=== PATIENT | female | born 1950 | race Caucasian/White ===

== ENCOUNTER → 2016-03-12 | Outpatient (CLI) | payer BC, OTHER ==
[~2016-03-12] MED LIST: ATOR-54 PO; CALC-20 PO; CALC0.5C17 PO; CALC500C73 PO; CEPH500T PO; CHOL1TAB76 PO; CHOL400T PO; CIPR-255 PO; CITA20TA9 PO; DILT180C96 PO; DILT360C8 PO; DIPH1TAB PO; DIPH25CA37 PO; FEXO1TAB49 PO; GABA1CAP PO; GARL1TAB8 PO; HYDR-4852 PO; LORA-741 PO; LORA0.5T12 PO; LORA10TA5 PO; LOSA100T65 PO; LOSA50TA54 PO; LPT/40 PO; LUBRIFRESH OPR; MELA1TAB3 PO; MELA1TAB5 PO; METF500T5 PO; METR-162 PO; MULTCAP94 PO; OMEP20TA PO; OMEP40CA41 PO; OXYC1CAP5 PO; OXYC1TAB3 PO; OYST500T47 PO; PRED20TA2 PO; RANI150T3 PO; TRAZ50TA35 PO; tylenol sinus PO
--- NOTE | 2016-03-13 12:41 | MAMMOGRAPHY REPORT ---
BILATERAL DIGITAL SCREENING MAMMOGRAM TOMOSYNTHESIS WITH CAD: 03/12/2016 CLINICAL HISTORY: Asymptomatic. Personal history of breast cancer. TECHNIQUE: Breast tomosynthesis in addition to standard 2D mammography was performed. Current study was also evaluated with a Computer Aided Detection (CAD) system. COMPARISON: Comparison is made to exams dated: 03/09/2015 mammogram, 03/06/2013 mammogram, 03/08/2014 sada mogram, 06/13/2012 mammogram, 03/05/2012 mammogram, and 07/18/2011 mammogram - [facility]. BREAST COMPOSITION: The tissue of both breasts is heterogeneously dense, which may obscure small ma sses. FINDINGS: There is diffuse right breast skin thickening, which appears similar on all available prio r mammograms dating back to at least 2007. Expected architectural distortion in the right upper out er posterior breast, with sutural calcification and multiple surgical clips remaining in place. Asy mmetry in the superior left breast on the MLO view also appears similar dating back to 2007, therefo re likely benign. No new suspicious mass, architectural distortion or cluster of microcalcification s is seen. IMPRESSION: ACR BI-RADS CATEGORY 1: NEGATIVE There is no mammographic evidence of malignancy. A 1 year screening mammogram is recommended. The p atient will receive written notification of the results. Approximately 10% of breast cancers are not detected with mammography. A negative mammographic repor t should not delay biopsy if a clinically suggestive mass is present. Lida Serrano M.D. ay/:03/12/2016 21:28:16 [employer]: Michelle Grace RT(R)(M), [facility] letter sent: Normal 1/2 BI-RADS Code: ACR BI-RADS Category 1: Negative
== END | disposition home or self-care (01) ==
LOC: C.MAMM 14:00
PROVIDERS: ATTEND Obstetrics & Gynecology
DX: Z12.31 Encounter for screening mammogram for malignant neoplasm of breast (principal)

== ENCOUNTER → 2016-03-30 | Outpatient (CLI) | payer BC ==
[2016-03-30 13:12] LABS: ESTIMATED AVERAGE GLUCOSE 151 mg/dl; HA1C FLAG Normal (Normal)
== END | disposition home or self-care (01) ==
LOC: C.LABBFT 09:49
PROVIDERS: ATTEND Internal Medicine
DX: E11.9 Type 2 diabetes mellitus without complications (principal)

== ENCOUNTER → 2016-05-07 | Outpatient (CLI) | payer BC | END | disposition home or self-care (01) | LOC: C.MAMM 13:55 | PROVIDERS: ATTEND Internal Medicine | DX: M85.89 Other specified disorders of bone density and structure, multiple sites (principal) ==

== ENCOUNTER 2016-05-25 10:25 | Emergency (ER) | payer BC ==
[~2016-05-25] VITALS: Ht 157.5 cm; Wt 61.6 kg
[~2016-05-25 10:25] MED LIST changes: -CALC500C73 PO; -CHOL1TAB76 PO; -CHOL400T PO; -CIPR-255 PO; -DILT180C96 PO; -DILT360C8 PO; -DIPH1TAB PO; -FEXO1TAB49 PO; -GARL1TAB8 PO; -LORA-741 PO; -LOSA100T65 PO; -LPT/40 PO; -MELA1TAB5 PO; -METF500T5 PO; -METR-162 PO; -OMEP40CA41 PO; -OXYC1CAP5 PO; -OXYC1TAB3 PO; -OYST500T47 PO; -PRED20TA2 PO; -RANI150T3 PO; -TRAZ50TA35 PO
[2016-05-25 10:32] VITALS: TEMP 36.5; Ht 157.5 cm; Wt 61.6 kg
[2016-05-25 10:48] VITALS: O2SAT 96
[2016-05-25] MEDS ORDERED: FEXO1TAB49 PO (11:11)
[2016-05-25] MEDS ORDERED: DILT360C8 PO (11:11)
[2016-05-25] MEDS ORDERED: GARL1TAB8 PO (11:11)
[2016-05-25] MEDS ORDERED: DIPH1TAB PO (11:14)
[2016-05-25] MEDS ORDERED: CHOL400T PO (11:16)
[2016-05-25] MEDS ORDERED: LORA-741 PO (11:16)
[2016-05-25] MEDS ORDERED: OYST500T47 PO (11:16)
[2016-05-25] MEDS ORDERED: DILT180C96 PO (11:19)
[2016-05-25] MEDS ORDERED: RANITIDINE HCL 150 MG TAB PO STA (11:41)
[2016-05-25] MEDS ORDERED: RANI150T3 PO (11:45)
[2016-05-25] MEDS ORDERED: PRED20TA2 PO (11:45)
[2016-05-25 12:02] VITALS: BP 174/94; PULSE 62; O2SAT 97
--- NOTE | 2016-05-25 12:20 | EMERGENCY ROOM VISIT NOTE ---
History Report prepared by Dimitrios: Val Velazquez Under the Supervision of: Dr. Jese Corley M.D. First contact with patient: 11:34 Chief Complaint: ALLERGIC REACTION Stated Complaint: PEANUT BUTTER REACTION, HEADACHE, CLOGGED THROAT Nursing Triage Summary: patient presents with c/o allergic reaction states her head is "clogged up" and she has a headache states she was exposed to peanut butter bagels as her son was eating them in the car on their drive here has previously had allergic reaction to peanut butter in the past including hives, facial and hand edena History of Present Illness The patient is a 65 year old female who presents to the Emergency Room with complaints of improving allergic reaction starting a few minutes ago. The patient was traveling to the hospital with her son when he dropped some peanut butter bagels on the floor of the car. The patient has a known allergy to peanut butter. She does not have an EpiPen at home. She started having a sore throat but denies any swelling. She denies any trouble swallowing. She also started having a headache. The patient now feels better. She currently denies any pain. The patient denies chest pain, shortness of breath, or any other complaints. Source of History: patient Onset: a few minutes ago Position: other (global) Symptom Intensity: No pain currently Quality: other (allergic reaction) Timing: other (improving) Associated Symptoms: + headache, + sorethroat, No SOB, No chest pain Review of Systems See HPI for pertinent positives & negatives. A total of 10 systems reviewed and were otherwise negative. Past Medical & Surgical Medical Problems: (1) Anxiety (2) Asthma (3) Contusion of right elbow (4) Diabetes (5) Hyperparathyroidism (6) Hypertension (7) Left buttock pain (8) Pneumonia Surgical Problems: (1) H/O: hysterectomy Family History Cancer Diabetes mellitus Heart disease Hypertension Lung disease Seizures Social History Smoking Status: Never Smoker Marital Status: Occupation Status: retired Current/Historical Medications Scheduled Atorvastatin (Lipitor), 20 MG PO HS Cholecalciferol (Vitamin D), 1 TAB PO DAILY Citalopram Hydrobromide (Celexa), 30 MG PO HS Diltiazem Hcl Coated Beads (Diltiazem Cd), 180 MG PO DAILY Gabapentin (Neurontin), 100 MG PO HS Garlic (Garlic), 1 TAB PO DAILY Lorazepam (Ativan), 1 TAB PO HS Losartan Potassium (Cozaar), 50 MG PO HS Melatonin-Pyridoxine (Melatonin), 1 MG PO HS Omeprazole (Omeprazole), 40 MG PO QAM Oyster Shell (Calcium), 1 TAB PO DAILY Prednisone (Prednisone Tab), 0 PO DAILY Ranitidine Hcl (Zantac), 1 TAB PO BID Scheduled PRN Diphenhydramine Hcl (Benadryl Allergy), 25-50 MG PO DAILY PRN for ALLERGIC REACTION Fexofenadine Hcl (Syeda Allergy), 1 TAB PO DAILY PRN for ALLERGIES Allergies Coded Allergies: Midazolam (Verified Allergy, Severe, CENTRAL NERVOUS REACTION "ACTING OUT ", 08/11/14) KADIE Inhibitors (Unverified Allergy, Unknown, UNKNOWN, 08/11/14) Beta Adrenergic Blockers (Unverified Allergy, Unknown, UNKNOWN, 08/11/14) Caffeine (Verified Allergy, Unknown, HYPERACTIVITY, 08/11/14) Chocolate (Verified Allergy, Unknown, RASH, 08/11/14) [place] Oil (Verified Allergy, Unknown, HEADACHE, 08/11/14) Gentamicin (Unverified Allergy, Unknown, unknown, 08/11/14) Per PCP note Peanut (Verified Allergy, Unknown, ANAPLYLAXIS, 08/11/14) Zolpidem (Verified Allergy, Unknown, UNKNOWN, 08/11/14) Physical Exam Vital Signs Date Time Temp Pulse Resp B/P Pulse Ox O2 Delivery O2 Flow Rate FiO2 05/25/16 12:02 62 16 174/94 97 05/25/16 10:48 96 Room Air 05/25/16 10:32 36.5 72 18 152/88 97 Room Air Physical Exam GENERAL: Patient is a healthy-appearing well-nourished HEAD: Normocephalic atraumatic EYES: Ocular movements intact pupils equal and react to light OROPHARYNX mucous membranes are moist no exudates present no erythema or edema present NECK: Supple no nuchal rigidity CHEST: Good equal expansion LUNGS: Clear and equal to auscultation CARDIAC: Normal S1 and S2 ABDOMEN: Soft nontender no guarding BACK: No CVA tenderness EXTREMITIES: No pain upon palpation normal muscle strength in all groups no clubbing cyanosis or edema NEURO: Patient is following commands is answering questions appropriately. Alert and oriented x3 Cranial Nerves 2-12 grossly intact Medical Decision & Procedures Medications Administered Medications (Trade) Dose Ordered Sig/Gisela Route Start Time Stop Time Status Last Admin Dose Admin Prednisone (PredniSONE TAB) 60 mg NOW STAT PO 05/25/16 11:41 05/25/16 11:43 DC 05/25/16 11:53 60 MG Ranitidine HCl (zANTac TAB) 150 mg NOW STAT PO 05/25/16 11:41 05/25/16 11:43 DC 05/25/16 11:53 150 MG Diphenhydramine HCl (Benadryl Cap) 50 mg NOW ONCE PO 05/25/16 11:45 05/25/16 11:46 DC 05/25/16 11:53 50 MG ED Course 1134: Past medical records reviewed. The patient was evaluated in room B10. A complete history and physical examination was performed. 1141: Ranitidine HCl 150 mg PO, Prednisone 60 mg PO 1145: Benadryl Cap 50 mg PO 1205: Upon reexamination the patient is resting comfortably. I discussed results and treatment plan with the patient. She verbalizes agreement and understanding. The patient is ready for discharge. Medical Decision Differential diagnosis: Etiologies such as allergic reaction, anaphylaxis, urticaria, Izaguirre-Mert syndrome, toxic epidermal necrolysis, erythema multiforme, cellulitis, as well as others were entertained. This is a 65-year-old female who presents emergency department complaining of allergic reaction upon arrival to the emergency department the patient is in no distress. She was given prednisone as well as Zantac and Benadryl. 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 Patient was in agreement with the treatment plan. Impression Primary Impression: Allergic reaction Scribe Attestation The scribe's documentation has been prepared under my direction and personally reviewed by me in its entirety. I confirm that the note above accurately reflects all work, treatment, procedures, and medical decision making performed by me. Departure Information Dispostion Home / Self-Care Prescriptions Ranitidine Hcl (ZANTAC) 150 Mg Tab 1 TAB PO BID for 7 Days, #14 TAB Prov: Jese Corley MD 05/25/16 Prednisone (Prednisone Tab) 20 Mg Tab 0 PO DAILY, #7 TAB 2 TABS DAILY FOR 2 DAYS, THEN 1 TAB DAILY FOR 2 DAYS, THEN 1/2 TAB DAILY FOR 2 DAYS. Prov: Jese Corley MD 05/25/16 Referrals Juan A Hahn M.D. Forms HOME CARE DOCUMENTATION FORM, IMPORTANT VISIT INFORMATION Patient Instructions ED Allergic Reaction General Other, My [facility] Additional Instructions Take 50 mg of Benadryl as needed You have been examined and treated today on an emergency basis only. This is not a substitute for, or an effort to provide, complete comprehensive medical care. It is impossible to recognize and treat all injuries or illnesses in a single emergency department visit. It is therefore important that you follow up closely with your PCP. Call as soon as possible for an appointment. Thank you for your time and consideration. I look forward to speaking with you again soon. Please don't hesitate to call us if you have any questions. Problem Qualifiers Primary Impression: Allergic reaction Encounter type: initial encounter Qualified Codes: T78.40XA - Allergy, unspecified, initial encounter
[2016-11-15] MEDS ORDERED: CALC500C73 PO (13:57)
[2016-11-29] MEDS ORDERED: LPT/40 PO (09:57)
[2016-11-29] MEDS ORDERED: LOSA100T65 PO (09:57)
[2016-11-29] MEDS ORDERED: CHOL1TAB76 PO (09:57)
[2016-11-29] MEDS ORDERED: OXYC1CAP5 PO (09:57)
[2016-11-29] MEDS ORDERED: TRAZ50TA35 PO (09:57)
[2016-11-29] MEDS ORDERED: OMEP40CA41 PO (09:57)
== END 2016-05-25 12:05 | disposition home or self-care (01) ==
LOC: C.EDB 10:26
DX: T78.40XA Allergy, unspecified, initial encounter (principal); X58.XXXA Exposure to other specified factors, initial encounter; F41.9 Anxiety disorder, unspecified; J45.909 Unspecified asthma, uncomplicated; E11.9 Type 2 diabetes mellitus without complications; E21.3 Hyperparathyroidism, unspecified; I10 Essential (primary) hypertension; Z90.710 Acquired absence of both cervix and uterus; Z83.3 Family history of diabetes mellitus; Z82.49 Family history of ischemic heart disease and other diseases of the circulatory system; Z82.0 Family history of epilepsy and other diseases of the nervous system

== ENCOUNTER → 2016-08-10 | Outpatient (CLI) | payer BC ==
[~2016-08-10] MED LIST changes: -CALC-20 PO; -CALC0.5C17 PO; +CALC500C73 PO; -CEPH500T PO; +CHOL1TAB76 PO; +CHOL400T PO; +CIPR-255 PO; +DILT180C58 PO; +DIPH1TAB87 PO; -DIPH25CA37 PO; +FEXO1TAB49 PO; +GARL1TAB8 PO; -HYDR-4852 PO; +LORA-741 PO; -LORA0.5T12 PO; -LORA10TA5 PO; +LOSA100T65 PO; +LPT/40 PO; -LUBRIFRESH OPR; +MELA1TAB5 PO; +METF500T5 PO; +METR-162 PO; -MULTCAP94 PO; +OMEP40CA41 PO; +OXYC1CAP5 PO; +OXYC1TAB3 PO; +OYST500T47 PO; +PRED20TA2 PO; +RANI150T3 PO; +TRAZ50TA35 PO; -tylenol sinus PO
[2016-08-10 17:25] LABS: CALCIUM 8.7 mg/dl (8.5-10.1)
[2016-08-10 17:32] LABS: CHOLESTEROL/HDL RATIO 3.9
[2016-08-11 07:21] LABS: ESTIMATED AVERAGE GLUCOSE 148 mg/dl; HA1C FLAG Normal (Normal)
== END | disposition home or self-care (01) ==
LOC: C.LABBFT 11:14
PROVIDERS: ATTEND Internal Medicine
DX: M81.0 Age-related osteoporosis without current pathological fracture (principal); E11.9 Type 2 diabetes mellitus without complications; E55.9 Vitamin D deficiency, unspecified; E78.5 Hyperlipidemia, unspecified

== ENCOUNTER 2016-09-06 14:07 | Emergency (ER) | payer BC ==
[~2016-09-06] VITALS: Ht 162.6 cm; Wt 61.1 kg
[~2016-09-06 14:07] MED LIST changes: -CALC500C73 PO; -CHOL1TAB76 PO; -CIPR-255 PO; -DILT180C58 PO; +DILT180C96 PO; +DIPH1TAB PO; -DIPH1TAB87 PO; -LOSA100T65 PO; -LPT/40 PO; -MELA1TAB5 PO; -METF500T5 PO; -METR-162 PO; -OMEP40CA41 PO; -OXYC1CAP5 PO; -OXYC1TAB3 PO; -TRAZ50TA35 PO
[2016-09-06 14:11] VITALS: TEMP 36.7; Ht 162.6 cm; Wt 61.1 kg
[2016-09-06] MEDS ORDERED: ONDANSETRON INJ 2 MG/ML 2 ML VIAL IV STA (14:22)
[2016-09-06] MEDS ORDERED: SODIUM CHLORIDE 0.9% 1000ML 1,000 ML IV STA (14:22)
[2016-09-06 14:38] LABS: BASO % 0.2 %; BASO ABS # 0.02 K/uL (0-0.2); COMPLETE YES; EOS % 1.1 %; HEMATOCRIT 38.7 % (37-47); IG% 0.2 %; LYMPH % 12.7 %; LYMPH ABS # 1.38 K/uL (1.2-3.4); MEAN CELL VOLUME 88.2 fL (80-100); MEAN CORPUSCULAR HEMOGLOBIN 28.2 pg (25-34); MEAN PLATELET VOLUME 10.3 fL (7.4-10.4); MONO % 7.6 %; NEUT % 78.2 %; PLATELET COUNT 280 K/uL (130-400); RED BLOOD COUNT 4.39 M/uL (4.2-5.4)
[2016-09-06] MEDS: MoRPHine SULFATE 4 MG/ML 1 ML CARP\\VIAL IV PRN ×2 (14:43→15:36)
[2016-09-06 15:03] LABS: CALCIUM 9.3 mg/dl (8.5-10.1); CREATININE 0.83 mg/dl (0.60-1.20); POTASSIUM 4.2 mmol/L (3.5-5.1)
[2016-09-06] MEDS ORDERED: CIPROFLOXACIN 500 MG TAB PO STA (15:14)
[2016-09-06] MEDS ORDERED: METRONIDAZOLE 250 MG TAB PO STA (15:14)
--- NOTE | 2016-09-06 15:14 | DIAGNOSTIC IMAGING REPORT ---
ABDOMEN AND PELVIS CT WITHOUT CONTRAST CT DOSE: 263.56 mGy.cm HISTORY: Pain left flank pain TECHNIQUE: Multiaxial CT images of the abdomen and pelvis were performed without contrast. COMPARISON STUDY: 12/24/2012 FINDINGS: Stable postoperative change right breast. Chronic skin thickening. Lung bases are clear. Liver spleen and pancreas are unremarkable. Gallstone is identified within the gallbladder lumen. Kidneys negative for calcification or hydronephrosis. The adrenal glands are unremarkable. Small bowel pattern is nonobstructive. Considerable wall thickening of the low to mid sigmoid colon with moderate pericolonic infiltrative change. No drainable abscess or collection. The appearance is consistent with that of acute diverticulitis. Bladder is midline. The inguinal regions are unremarkable. IMPRESSION: 1. Acute mid to lower sigmoid diverticulitis. 2. No evidence for abscess collection or obstruction. 3. Gallstone Electronically signed by: Star Yanez M.D. 09/06/2016 3:13 PM Dictated Date/Time: 09/06/2016 3:08 PM
[2016-09-06] MEDS ORDERED: MELA1TAB5 PO (15:17)
[2016-09-06] MEDS ORDERED: METF500T5 PO (15:19)
--- NOTE | 2016-09-06 15:19 | EMERGENCY ROOM VISIT NOTE ---
History Report prepared by Dimitrios: Maryam Knapp Under the Supervision of: Dr. Jesus Douglass D.O. First contact with patient: 14:16 Chief Complaint: ABDOMINAL PAIN Stated Complaint: ABD. PAIN History of Present Illness The patient is a 65 year old female who presents to the Emergency Room with complaints of worsening abdominal pain starting a week ago. She currently rates her pain as a 4/10 in severity. The patient notes that she did not see a provider for this, but that she called her PCP who told her to come to the ED because they didn't have the equipment to check her out. She notes that they also couldn't get her an appointment for four days. She states that the pain was bad last night that she couldn't sleep. The patient notes that she has had diverticulitis before and thought it might be a flare up. The patient complains of nausea, diarrhea, frequent urination, and back pain. The patient denies fevers, chills, and vomiting. The patient notes that her last colonoscopy was ten years ago and she is scheduled for one next month. She denies being on blood thinners, ever having kidney stones, a kidney infection, a cholecystectomy , and an appendectomy. Source of History: patient Onset: a week ago Position: abdomen Symptom Intensity: 4/10 Quality: other (previous Diverticulitis episodes) Timing: worsening Associated Symptoms: + nausea, + back pain, + diarrhea, + urinary symptoms, No fevers, No chills, No vomiting Review of Systems See HPI for pertinent positives & negatives. A total of 10 systems reviewed and were otherwise negative. Past Medical & Surgical Medical Problems: (1) Anxiety (2) Asthma (3) Contusion of right elbow (4) Diabetes (5) HX: breast cancer (6) Hyperparathyroidism (7) Hypertension (8) Left buttock pain (9) Pneumonia Surgical Problems: (1) H/O: hysterectomy (2) H/O: hysterectomy (3) Hx of section Family History Cancer Diabetes mellitus Heart disease Hypertension Lung disease Seizures Social History Smoking Status: Never Smoker Smokeless Tobacco Use: No Alcohol Use: none Marital Status: Housing Status: lives with significant other Occupation Status: employed Current/Historical Medications Scheduled Atorvastatin (Lipitor), 20 MG PO HS Cholecalciferol (Vitamin D), 2,000 UNITS PO DAILY Ciprofloxacin Hcl (Cipro), 500 MG PO BID Citalopram Hydrobromide (Celexa), 30 MG PO HS Diltiazem Hcl Coated Beads (Diltiazem Cd), 180 MG PO DAILY Gabapentin (Neurontin), 100 MG PO HS Lorazepam (Ativan), 1 TAB PO HS Losartan Potassium (Cozaar), 50 MG PO HS Melatonin (Kp Melatonin), 1 TAB PO HS Metformin Hcl Er (Glucophage Er), 1 TAB PO BID Metronidazole (Flagyl), 500 MG PO TID Omeprazole (Omeprazole), 40 MG PO QAM Oyster Shell (Calcium), 1 TAB PO DAILY Ranitidine Hcl (Zantac), 1 TAB PO BID Scheduled PRN Diphenhydramine Hcl (Benadryl Allergy), 25-50 MG PO DAILY PRN for ALLERGIC REACTION Fexofenadine Hcl (Syeda Allergy), 1 TAB PO DAILY PRN for ALLERGIES Oxycodone Immediate Rel Tab (Roxicodone Ir), 1-2 TAB PO Q4H PRN for Severe Pain Allergies Coded Allergies: Midazolam (Verified Allergy, Severe, CENTRAL NERVOUS REACTION "ACTING OUT ", 09/06/16) KADIE Inhibitors (Unverified Allergy, Unknown, UNKNOWN, 09/06/16) Beta Adrenergic Blockers (Unverified Allergy, Unknown, UNKNOWN, 09/06/16) Caffeine (Verified Allergy, Unknown, HYPERACTIVITY, 09/06/16) Chocolate (Verified Allergy, Unknown, RASH, 09/06/16) [place] Oil (Verified Allergy, Unknown, HEADACHE, 09/06/16) Gentamicin (Unverified Allergy, Unknown, unknown, 09/06/16) Per PCP note Peanut (Verified Allergy, Unknown, ANAPLYLAXIS, 09/06/16) Zolpidem (Verified Allergy, Unknown, UNKNOWN, 09/06/16) Physical Exam Vital Signs Date Time Temp Pulse Resp B/P (MAP) Pulse Ox O2 Delivery O2 Flow Rate FiO2 09/06/16 14:11 36.7 75 18 146/87 97 Room Air Physical Exam GENERAL: Patient is awake, alert, and in no acute distress. Patient is resting comfortably and showing no signs of anxiety EYES: The conjunctivae are clear. The pupils are round and reactive. EARS, NOSE, MOUTH AND THROAT: The nose is without any evidence of any deformity. Mucous membranes are moist tongue is midline NECK: The neck is nontender and supple. RESPIRATORY: Normal respiratory effort is noted there is no evidence of wheezing rhonchi or rales CARDIOVASCULAR: Regular rate and rhythm noted there no murmurs rubs or gallops normal S1 normal S2 GASTROINTESTINAL: The abdomen is mildly distended. There is lower abdominal tenderness to palpatation which was diffuse. Mild guarding noted in suprapubic region and left lower quadrant. Bowel sounds are present in all quadrants. BACK: No midline tenderness or or step-off noted range of motion in flexion extension as well as rotation no signs of muscle spasm noted MUSCULOSKELETAL/EXTREMITIES: There is no evidence of gross deformity full range of motion is noted in the hips and shoulders SKIN: There is no obvious evidence of any rash. There are no petechiae, pallor or cyanosis noted. NEUROLOGIC: Patient is awake alert and oriented x3. Medical Decision & Procedures ER Provider Diagnostic Interpretation: Radiology results as stated below per my review and radiologist interpretation: ABDOMEN AND PELVIS CT WITHOUT CONTRAST CT DOSE: 263.56 mGy.cm HISTORY: Pain left flank pain TECHNIQUE: Multiaxial CT images of the abdomen and pelvis were performed without contrast. COMPARISON STUDY: 12/24/2012 FINDINGS: Stable postoperative change right breast. Chronic skin thickening. Lung bases are clear. Liver spleen and pancreas are unremarkable. Gallstone is identified within the gallbladder lumen. Kidneys negative for calcification or hydronephrosis. The adrenal glands are unremarkable. Small bowel pattern is nonobstructive. Considerable wall thickening of the low to mid sigmoid colon with moderate pericolonic infiltrative change. No drainable abscess or collection. The appearance is consistent with that of acute diverticulitis. Bladder is midline. The inguinal regions are unremarkable. IMPRESSION: 1. Acute mid to lower sigmoid diverticulitis. 2. No evidence for abscess collection or obstruction. 3. Gallstone Electronically signed by: Star Yanez M.D. 09/06/2016 3:13 PM Dictated Date/Time: 09/06/2016 3:08 PM Laboratory Results 09/06/16 14:25 Red Blood Count 4.39, Mean Corpuscular Volume 88.2, Mean Corpuscular Hemoglobin 28.2, Mean Corpuscular Hemoglobin Concent 32.0, Mean Platelet Volume 10.3, Neutrophils (%) (Auto) 78.2, Lymphocytes (%) (Auto) 12.7, Monocytes (%) (Auto) 7.6, Eosinophils (%) (Auto) 1.1, Basophils (%) (Auto) 0.2, Neutrophils # (Auto) 8.53, Lymphocytes # (Auto) 1.38, Monocytes # (Auto) 0.83, Eosinophils # (Auto) 0.12, Basophils # (Auto) 0.02 09/06/16 14:25 Test 09/06/16 14:25 09/06/16 14:45 White Blood Count 10.90 K/uL (4.8-10.8) Red Blood Count 4.39 M/uL (4.2-5.4) Hemoglobin 12.4 g/dL (12.0-16.0) Hematocrit 38.7 % (37-47) Mean Corpuscular Volume 88.2 fL (80-100) Mean Corpuscular Hemoglobin 28.2 pg (25-34) Mean Corpuscular Hemoglobin Concent 32.0 g/dl (32-36) Platelet Count 280 K/uL (130-400) Mean Platelet Volume 10.3 fL (7.4-10.4) Neutrophils (%) (Auto) 78.2 % Lymphocytes (%) (Auto) 12.7 % Monocytes (%) (Auto) 7.6 % Eosinophils (%) (Auto) 1.1 % Basophils (%) (Auto) 0.2 % Neutrophils # (Auto) 8.53 K/uL (1.4-6.5) Lymphocytes # (Auto) 1.38 K/uL (1.2-3.4) Monocytes # (Auto) 0.83 K/uL (0.11-0.59) Eosinophils # (Auto) 0.12 K/uL (0-0.5) Basophils # (Auto) 0.02 K/uL (0-0.2) RDW Standard Deviation 44.7 fL (36.4-46.3) RDW Coefficient of Variation 13.7 % (11.5-14.5) Immature Granulocyte % (Auto) 0.2 % Immature Granulocyte # (Auto) 0.02 K/uL (0.00-0.02) Anion Gap 7.0 mmol/L (3-11) Est Creatinine Clear Calc Drug Dose 57.6 ml/min Estimated GFR () 85.2 Estimated GFR (Non- 73.5 BUN/Creatinine Ratio 17.0 (10-20) Calcium Level 9.3 mg/dl (8.5-10.1) Total Bilirubin 0.5 mg/dl (0.2-1) Direct Bilirubin 0.1 mg/dl (0-0.2) Aspartate Amino Transf (AST/SGOT) 11 U/L (15-37) Alanine Aminotransferase (ALT/SGPT) 16 U/L (12-78) Alkaline Phosphatase 114 U/L (45-117) Total Protein 7.8 gm/dl (6.4-8.2) Albumin 3.8 gm/dl (3.4-5.0) Lipase 144 U/L (73-393) Urine Color YELLOW Urine Appearance CLEAR (CLEAR) Urine pH 5.0 (4.5-7.5) Urine Specific [place] 1.015 (1.000-1.030) Urine Protein NEG (NEG) Urine Glucose (UA) NEG (NEG) Urine Ketones NEG (NEG) Urine Occult Blood NEG (NEG) Urine Nitrite NEG (NEG) Urine Bilirubin NEG (NEG) Urine Urobilinogen NEG (NEG) Urine Leukocyte Esterase NEG (NEG) Laboratory results per my review. Medications Administered Medications (Trade) Dose Ordered Sig/Gisela Route Start Time Stop Time Status Last Admin Dose Admin Sodium Chloride 1,000 ml @ 200 mls/hr Q5H STAT IV 09/06/16 14:22 09/06/16 19:21 09/06/16 14:42 200 MLS/HR Morphine Sulfate (MoRPHine SULFATE INJ) 4 mg Q15M PRN IV 09/06/16 14:30 09/20/16 14:29 09/06/16 15:36 4 MG Ondansetron HCl (Zofran Inj) 4 mg NOW STAT IV 09/06/16 14:22 09/06/16 14:24 DC 09/06/16 14:43 4 MG Ciprofloxacin (Cipro Tab) 500 mg NOW STAT PO 09/06/16 15:14 09/06/16 15:15 DC 09/06/16 15:36 500 MG Metronidazole (Flagyl Tab) 500 mg NOW STAT PO 09/06/16 15:14 09/06/16 15:15 DC 09/06/16 15:36 500 MG ED Course 1419: The patient was evaluated in room C1B. A complete history and physical examination were performed. 1422: Ordered Zofran Inj 4 mg IV, NSS 1000 ml @ 200 mls/hr IV. 1430: Ordered Morphine Sulfate 4 mg PRN IV pain. 1514: Ordered Flagyl Tab 500 mg PO, Cipro Tab 500 mg PO. 1536: Upon reevaluation, the patient is resting comfortably. I discussed the results and treatment plan with her. She verbalized agreement of the treatment plan. The patient was discharged home. Medical Decision Medication Reconciliation: I attest that I have personally reviewed the patient' s current medications list. Patient was found to have a slightly elevated blood pressure due to circumstances. I do not believe that the patient requires hypertension monitoring. Differential diagnosis: Etiologies such as appendicitis, diverticulitis, PUD, biliary pathology, UTI, pancreatitis, obstruction, mesenteric ischemia, aortic pathology, infections, inflammatory bowel disease, renal colic, as well as others were entertained. The patient is a 65-year-old female who presented to the emergency department for an evaluation of lower abdominal tenderness. The patient has a history of diverticulitis. She called her primary care physician today and was sent to the emergency department for testing. The patient clinically had diverticulitis because of the amount of pain a CT abdomen and pelvis was obtained. This did not show any signs of abscess or perforation. She was treated with IV fluids IV pain medicine and IV antiemetics. On subsequent reevaluation she was feeling much better. She was started on antibiotics in the emergency department. I discussed the patient's laboratory and radiographic studies with her. She was encouraged to continue all medications as prescribed and follow-up with her family doctor next week. She was also encouraged to keep her scheduled appointment with her meat carrier but return to the emergency department immediately if symptoms change worsen or the need arises. Impression Primary Impression: Acute diverticulitis Additional Impressions: Gallstone Abdominal pain Scribe Attestation The scribe's documentation has been prepared under my direction and personally reviewed by me in its entirety. I confirm that the note above accurately reflects all work, treatment, procedures, and medical decision making performed by me. Departure Information Dispostion Home / Self-Care Prescriptions Oxycodone Immediate Rel Tab (ROXICODONE IR) 5 Mg Tab 1-2 TAB PO Q4H Y for Severe Pain, #24 TAB Prov: Jesus Douglass, DO 09/06/16 Metronidazole (FLAGYL) 500 Mg Tab 500 MG PO TID, #30 TAB Prov: Jesus Douglass, DO 09/06/16 Ciprofloxacin Hcl (CIPRO) 500 Mg Tab 500 MG PO BID, #20 TAB Prov: Jesus Douglass, DO 09/06/16 Referrals Juan A Hahn M.D. (PCP) Forms HOME CARE DOCUMENTATION FORM, IMPORTANT VISIT INFORMATION Patient Instructions My [facility] Additional Instructions Call your family to schedule a follow-up appointment. Follow-up with your meat carrier as scheduled. Drink plenty clear liquids. Continue using Motrin and Tylenol for mild pain. Return to the emergency department immediately if symptoms change worsen or the need arises. Problem Qualifiers
[2016-09-06 15:29] LABS: URINE APPEARANCE CLEAR (CLEAR); URINE BILIRUBIN NEG (NEG); URINE COLOR YELLOW; URINE NITRITE NEG (NEG); URINE SPECIFIC GRAVITY 1.015 (1.000-1.030); UROBILINOGEN NEG (NEG)
[2016-09-06] MEDS ORDERED: CIPR-255 PO (15:34)
[2016-09-06] MEDS ORDERED: METR-162 PO (15:34)
[2016-09-06] MEDS ORDERED: OXYC1TAB3 PO (15:34)
[2016-09-06 15:39] LABS: MANUAL MICROSCOPIC REQUIRED? NO; REVIEW REQ? NO
[2016-09-06 16:06] VITALS: BP 170/85; PULSE 64; O2SAT 96
[2016-11-15] MEDS ORDERED: CALC500C73 PO (13:57)
[2016-11-29] MEDS ORDERED: LPT/40 PO (09:57)
[2016-11-29] MEDS ORDERED: LOSA100T65 PO (09:57)
[2016-11-29] MEDS ORDERED: OMEP40CA41 PO (09:57)
[2016-11-29] MEDS ORDERED: CHOL1TAB76 PO (09:57)
[2016-11-29] MEDS ORDERED: TRAZ50TA35 PO (09:57)
[2016-11-29] MEDS ORDERED: OXYC1CAP5 PO (09:57)
== END 2016-09-06 16:06 | disposition home or self-care (01) ==
LOC: C.EDB 14:08 → C.EDC 16:06
DX: K57.92 Diverticulitis of intestine, part unspecified, without perforation or abscess without bleeding (principal); K80.20 Calculus of gallbladder without cholecystitis without obstruction; R10.9 Unspecified abdominal pain; E11.9 Type 2 diabetes mellitus without complications; F41.9 Anxiety disorder, unspecified; I10 Essential (primary) hypertension; J45.909 Unspecified asthma, uncomplicated; Z85.3 Personal history of malignant neoplasm of breast; Z87.01 Personal history of pneumonia (recurrent); Z90.710 Acquired absence of both cervix and uterus; Z98.891 History of uterine scar from previous surgery; Z98.890 Other specified postprocedural states; Z83.3 Family history of diabetes mellitus; Z82.49 Family history of ischemic heart disease and other diseases of the circulatory system; Z82.0 Family history of epilepsy and other diseases of the nervous system; Z79.84 Long term (current) use of oral hypoglycemic drugs; Z79.899 Other long term (current) drug therapy

== ENCOUNTER → 2016-11-09 | Outpatient (CLI) | payer BC ==
[~2016-11-09] MED LIST changes: +CALC500C73 PO; +CHOL1TAB76 PO; +CIPR-255 PO; -GARL1TAB8 PO; +LOSA100T65 PO; +LPT/40 PO; -MELA1TAB3 PO; +MELA1TAB5 PO; +METF500T5 PO; +OMEP40CA41 PO; +OXYC1CAP5 PO; +OXYC1TAB3 PO; -PRED20TA2 PO; +TRAZ50TA35 PO
[2016-11-09 17:00] LABS: CALCIUM 9.6 mg/dl (8.5-10.1); CREATININE 0.84 mg/dl (0.60-1.20)
== END | disposition home or self-care (01) ==
LOC: C.LABBFT 14:45
PROVIDERS: ATTEND Internal Medicine Endocrinology, Diabetes & Metabolism
DX: M81.0 Age-related osteoporosis without current pathological fracture (principal)

== ENCOUNTER → 2016-12-05 | Day surgery (SDC) | payer BC ==
[2016-11-29 10:00] VITALS: Ht 162.6 cm; Wt 59.1 kg
[~2016-12-05] VITALS: Ht 162.6 cm; Wt 59.1 kg
[~2016-12-05] MED LIST changes: -ATOR-54 PO; -CHOL400T PO; -CIPR-255 PO; -LORA-741 PO; -LOSA50TA54 PO; -OMEP20TA PO; -OXYC1TAB3 PO; -OYST500T47 PO; +PROPOFOL IV EMULSION 10 MG/ML 20 ML VIAL IV ONE; -RANI150T3 PO; +SODIUM CHLORIDE 0.9% 500ML 500 ML IV ONE
--- NOTE | 2016-12-05 08:59 | Endo History and Physical ---
History & Physical Date of Service: Dec 05, 2016. Chief Complaint: Screening Referring Physician: Juan A Hahn History of Present Illness 66 yo CF who presents for screening colonoscopy. Past Medical History Diabetes, Arthritis, Asthma, Reflux, Cancer, High Cholesterol, Hypertension Past Surgical History Hx Cardiac Surgery: No Hx Internal Defibrillator: No Hx Pacemaker: No Hx Abdominal Surgery: Yes (PARTIAL HYSTER, ) Hx of Implantable Prosthesis: No Hx Post-Op Nausea and Vomiting: No Hx Cancer Surgery: Yes (RT BREAST LUMPECTOMY) Hx Thoracic Surgery: No Hx Orthopedic: No Hx Urinary Tract Surgery: No Family History IBD Social History Smoking Status: Never Smoker Hx Substance Use: No Hx Alcohol Use: No Allergies Coded Allergies: Midazolam (Verified Allergy, Severe, CENTRAL NERVOUS REACTION "ACTING OUT ", 11/29/16) KADIE Inhibitors (Unverified Allergy, Unknown, UNKNOWN, 11/29/16) Beta Adrenergic Blockers (Unverified Allergy, Unknown, UNKNOWN, 11/29/16) CI Pigment Blue 63 (Verified Allergy, Unknown, "THROAT CLOSED UP AND TERRIBLE HEADACHE", 11/29/16) Caffeine (Verified Allergy, Unknown, HYPERACTIVITY, 11/29/16) Chocolate (Verified Allergy, Unknown, RASH, 11/29/16) [place] Oil (Verified Allergy, Unknown, HEADACHE, 11/29/16) Fesoterodine (Verified Allergy, Unknown, "THROAT CLOSED UP AND TERRIBLE HEADACHE", 11/29/16) Gentamicin (Unverified Allergy, Unknown, unknown, 11/29/16) Per PCP note Lecithin (Verified Allergy, Unknown, "THROAT CLOSED UP AND TERRIBLE HEADACHE", 11/29/16) Peanut (Verified Allergy, Unknown, ANAPLYLAXIS, 11/29/16) Zolpidem (Verified Allergy, Unknown, UNKNOWN, 11/29/16) Current Medications Reported Home Medications Medications Dose Route/Sig Max Daily Dose Days Date Category Oxycodone Hcl 5 Mg Cap 1 Cap PO QID PRN 11/29/16 Reported Trazodone (Trazodone HCl) 50 Mg Tab 50 Mg PO HS 11/29/16 Reported D 2000 (Cholecalciferol) 2,000 Unit Tab 2 Tabs PO BID 11/29/16 Reported Prilosec (Omeprazole) 40 Mg Cap 40 Mg PO QAM 11/29/16 Reported Lipitor (Atorvastatin) 40 Mg Tab 40 Mg PO HS 11/29/16 Reported Cozaar (Losartan Potassium) 100 Mg Tab 100 Mg PO QAM 11/29/16 Reported Calcium (Calcium Carbonate) 500 Mg Chw 1 Tab PO BID 11/15/16 Reported Glucophage Er (Metformin HCl) 500 Mg Tab 1 Tab PO BID 09/06/16 Reported Kp Melatonin (Melatonin) 3 Mg Tab 1 Tab PO HS 09/06/16 Reported Diltiazem Cd (Diltiazem Hcl Coated Beads) 180 Mg Cap 180 Mg PO QAM 05/25/16 Reported Benadryl Allergy (Diphenhydramine Hcl) 25 Mg Tab 25-50 Mg PO DAILY PRN 05/25/16 Reported Syeda Allergy (Fexofenadine Hcl) 180 Mg Tab 1 Tab PO DAILY PRN 05/25/16 Reported Neurontin (Gabapentin) 100 Mg Cap 2 Tabs PO HS 07/16/14 Reported Celexa (Citalopram Hydrobromide) 20 Mg Tab 1.5 Tabs PO HS 03/09/13 Reported Vital Signs Weight (Kilograms): 59.09 Height (Feet): 5 Height (Inches): 4 Date Time Temp Pulse Resp B/P (MAP) Pulse Ox O2 Delivery O2 Flow Rate FiO2 12/05/16 08:53 36.7 69 18 179/92 (121) 97 Room Air Physical Exam General Appearance: WD/WN, no apparent distress Respiratory/Chest: Auscultation: breath sounds normal Cardiovascular: Heart Auscultation: RRR Abdomen: Bowel Sounds: normal Inspection & Palpation: soft, non-distended, no tenderness, guarding & rebound Assessment and Plan Assessment: 66 yo CF who presents for screening colonoscopy. Plan: Proceed with colonoscopy.
--- NOTE | 2016-12-05 09:35 | Discharge Instructions ---
Endoscopy Patient Instructions Date / Procedure(s) Performed Dec 05, 2016. Colonoscopy Allergy Information Coded Allergies: Midazolam (Verified Allergy, Severe, CENTRAL NERVOUS REACTION "ACTING OUT ", 11/29/16) KADIE Inhibitors (Unverified Allergy, Unknown, UNKNOWN, 11/29/16) Beta Adrenergic Blockers (Unverified Allergy, Unknown, UNKNOWN, 11/29/16) CI Pigment Blue 63 (Verified Allergy, Unknown, "THROAT CLOSED UP AND TERRIBLE HEADACHE", 11/29/16) Caffeine (Verified Allergy, Unknown, HYPERACTIVITY, 11/29/16) Chocolate (Verified Allergy, Unknown, RASH, 11/29/16) [place] Oil (Verified Allergy, Unknown, HEADACHE, 11/29/16) Fesoterodine (Verified Allergy, Unknown, "THROAT CLOSED UP AND TERRIBLE HEADACHE", 11/29/16) Gentamicin (Unverified Allergy, Unknown, unknown, 11/29/16) Per PCP note Lecithin (Verified Allergy, Unknown, "THROAT CLOSED UP AND TERRIBLE HEADACHE", 11/29/16) Peanut (Verified Allergy, Unknown, ANAPLYLAXIS, 11/29/16) Zolpidem (Verified Allergy, Unknown, UNKNOWN, 11/29/16) Discharge Date / Findings Dec 05, 2016. Rectal nodule s/p biopsies Diverticulosis Internal hemorrhoids Medication Instructions Stopped Medication(s): Metformin OK to resume all medications today as prescribed Reported Home Medications Medications Dose Route/Sig Max Daily Dose Days Date Category Oxycodone Hcl 5 Mg Cap 1 Cap PO QID PRN 11/29/16 Reported Trazodone (Trazodone HCl) 50 Mg Tab 50 Mg PO HS 11/29/16 Reported D 2000 (Cholecalciferol) 2,000 Unit Tab 2 Tabs PO BID 11/29/16 Reported Prilosec (Omeprazole) 40 Mg Cap 40 Mg PO QAM 11/29/16 Reported Lipitor (Atorvastatin) 40 Mg Tab 40 Mg PO HS 11/29/16 Reported Cozaar (Losartan Potassium) 100 Mg Tab 100 Mg PO QAM 11/29/16 Reported Calcium (Calcium Carbonate) 500 Mg Chw 1 Tab PO BID 11/15/16 Reported Glucophage Er (Metformin HCl) 500 Mg Tab 1 Tab PO BID 09/06/16 Reported Kp Melatonin (Melatonin) 3 Mg Tab 1 Tab PO HS 09/06/16 Reported Diltiazem Cd (Diltiazem Hcl Coated Beads) 180 Mg Cap 180 Mg PO QAM 05/25/16 Reported Benadryl Allergy (Diphenhydramine Hcl) 25 Mg Tab 25-50 Mg PO DAILY PRN 05/25/16 Reported Syeda Allergy (Fexofenadine Hcl) 180 Mg Tab 1 Tab PO DAILY PRN 05/25/16 Reported Neurontin (Gabapentin) 100 Mg Cap 2 Tabs PO HS 07/16/14 Reported Celexa (Citalopram Hydrobromide) 20 Mg Tab 1.5 Tabs PO HS 03/09/13 Reported Provider Instructions Activity Restrictions - No exercising or heavy lifting for 24 hours. - Do not drink alcohol the day of the procedure. - Do not drive a car or operate machinery until the day after the procedure. - Do not make any important decisions or sign important papers in 24 hours after the procedure. Following Day: - Return to full activity which may include returning to work/school. Diet Start your diet with liquids and light foods (jello, soup, juice, toast). Then eat your usual diet if not nauseated. Treatment For Common After Affects For mild abdominal pain, bloating, or excessive gas: - Rest - Eat lightly - Lie on right side Follow-Up Information Follow-up with Juan A Hahn as scheduled Anesthesia Information What You Should Know You have had a procedure that required some medicine to reduce anxiety and discomfort. This treatment is called moderate sedation. After receiving the treatment, you may be sleepy, but you will be able to breathe on your own. The effects of the treatment may last for several hours. Follow these instructions along with Activity/Diet recommendations noted above: * Do NOT do anything where dizziness or clumsiness would be dangerous. * Rest quietly at home today, then you can be up and about tomorrow. * Have a responsible person stay with you the rest of today. * You may have had an I.V. today. If so, you may take the dressing off later today. Recommendations Call your doctor if: * Trouble breathing * Continuous vomiting for more than 24 hours * Temperature above 101 degrees * Severe abdominal pain or bloating * Pain not relieved by pain medicine ordered * There is increased drainage or redness from any incision * A large amount of rectal bleeding greater than 2-3 tablespoons. (If you had a polyp/s removed or have hemorrhoids, a small amount of blood - from the rectum is to be expected.) * You have any unanswered questions or concerns. IN THE EVENT OF A SERIOUS EMERGENCY, GO TO THE NEAREST EMERGENCY ROOM Your discharge instructions were prepared by provider Tobi Mcclendon. Patient Instructions Signature Page Damaris Montesinos Patient (or Guardian) Signature/Date: I have read and understand the instructions given to me by my caregivers. Caregiver/RN/Doctor Signature/Date: The above-named patient and/or guardian has received patient instructions on this date. + Original Patient Signature Page (only) stays with chart. Please make copy for patient.
--- NOTE | 2016-12-05 09:39 | GI REPORT ---
Procedure Date: 12/05/2016 9:01 AM Procedure: Colonoscopy Indications: Screening for colorectal malignant neoplasm Medicines: Monitored Anesthesia Care Complications: No immediate complications. Estimated Blood Loss: Estimated blood loss: none. Procedure: Pre-Anesthesia Assessment: - Prior to the procedure, a History and Physical was performed, and patient medications and allergies were reviewed. The patient's tolerance of previous anesthesia was also reviewed. The risks and benefits of the procedure and the sedation options and risks were discussed with the patient. All questions were answered, and informed consent was obtained. Prior Anticoagulants: The patient has taken no previous anticoagulant or antiplatelet agents. ASA Grade Assessment: III - A patient with severe systemic disease. After reviewing the risks and benefits, the patient was deemed in satisfactory condition to undergo the procedure. After I obtained informed consent, the scope was passed under direct vision. Throughout the procedure, the patient's blood pressure, pulse, and oxygen saturations were monitored continuously. The scope was introduced through the anus and advanced to the terminal ileum. The colonoscopy was performed without difficulty. The patient tolerated the procedure well. The quality of the bowel preparation was good. The terminal ileum, ileocecal valve, appendiceal orifice, and rectum were photographed. Findings: Scattered small-mouthed diverticula were found in the entire colon. Non-bleeding internal hemorrhoids were found during retroflexion. The hemorrhoids were small. Two 2 mm mucosal nodules were found at the anus. Biopsies were taken with a cold forceps for histology. Impression: - Diverticulosis in the entire examined colon. - Non-bleeding internal hemorrhoids. - Mucosal nodule at the anus. Biopsied. Recommendation: - Resume previous diet. - Continue present medications. - Repeat colonoscopy for surveillance based on pathology results. - Return to primary care physician as previously scheduled. Tobi Mcclendon DO 12/05/2016 9:38:29 AM This report has been signed electronically. Note Initiated On: 12/05/2016 9:01 AM I attest to the content of the Intraoperative Record and orders documented therein, exceptions below
[2016-12-05 10:06] VITALS: BP 172/94; PULSE 72; O2SAT 99
--- NOTE | 2016-12-05 10:17 | Anesthesiology Progress Note ---
Anesthesia Post Op Note Date & Time Dec 05, 2016 at 10:17 Vital Signs Pain Intensity: 0 Vital Signs Past 12 Hours Date Time Temp Pulse Resp B/P (MAP) Pulse Ox O2 Delivery O2 Flow Rate FiO2 12/05/16 10:06 72 20 172/94 (120) 99 Room Air 12/05/16 09:47 82 18 172/93 (119) 98 Room Air 12/05/16 09:32 69 18 151/82 (105) 97 Room Air 12/05/16 08:53 36.7 69 18 179/92 (121) 97 Room Air Notes Mental Status: alert / awake / arousable, participated in evaluation Pt Amnestic to Procedure: Yes Nausea / Vomiting: adequately controlled Pain: adequately controlled Airway Patency, RR, SpO2: stable & adequate BP & HR: stable & adequate Hydration State: stable & adequate Anesthetic Complications: no major complications apparent
== END | disposition home or self-care (01) ==
LOC: C.GI 08:24
PROVIDERS: ATTEND Internal Medicine
DX: Z12.11 Encounter for screening for malignant neoplasm of colon (principal); K57.90 Diverticulosis of intestine, part unspecified, without perforation or abscess without bleeding; K64.8 Other hemorrhoids; K62.89 Other specified diseases of anus and rectum; I10 Essential (primary) hypertension; E11.9 Type 2 diabetes mellitus without complications; J45.909 Unspecified asthma, uncomplicated; E78.00 Pure hypercholesterolemia, unspecified; Z90.711 Acquired absence of uterus with remaining cervical stump; Z98.890 Other specified postprocedural states; Z79.899 Other long term (current) drug therapy; F32.9 Major depressive disorder, single episode, unspecified; F41.9 Anxiety disorder, unspecified; Z68.22 Body mass index [BMI] 22.0-22.9, adult; Z85.3 Personal history of malignant neoplasm of breast

== ENCOUNTER 2016-12-24 22:03 | Inpatient (IN) | payer BC, OTHER ==
[~2016-12-24] VITALS: Ht 162.6 cm; Wt 61.8 kg
[~2016-12-24 22:03] MED LIST changes: +DILT180C58 PO; -DILT180C96 PO; -DIPH1TAB PO; +DIPH1TAB87 PO; -PROPOFOL IV EMULSION 10 MG/ML 20 ML VIAL IV ONE; -SODIUM CHLORIDE 0.9% 500ML 500 ML IV ONE
[2016-12-24] MEDS ORDERED: PANTOprazole INJ 80 MG in DEXTROSE 5% 100ML IV SCH (22:45)
--- NOTE | 2016-12-24 22:50 | EMERGENCY ROOM VISIT NOTE ---
History Report prepared by Dimitrios: Yasir Ramirez Under the Supervision of: Dr. Orestes Glass M.D. First contact with patient: 22:24 Chief Complaint: RECTAL BLEEDING Stated Complaint: BLEEDING FROM RECTUM Nursing Triage Summary: see triage note History of Present Illness The patient is a 66 year old female who presents to the Emergency Room with complaints of an episode of rectal bleeding that occurred an hour ago. She describes the blood as bright and dark red. The patient states that her joints were aching today and she had mild abdominal pain. She states that she had a hathaway burrito for lunch and was "gassy". The patient states that she had hathaway soup for dinner and felt as if she had to have a bowel movement. She states that when she went to have a bowel movement, she noticed there was clotted blood and stool. The patient admits she had Advil yesterday, and reports that she only takes Advil as needed. She admits that she had rectal bleeding ten years ago when she had radiation for breast cancer, but denies any other episodes since. The patient admits that she had a colonoscopy a month ago with Dr. Mcclendon that showed hemorrhoids, two mucosal nodules at the anus that were biopsied, and diverticuli. She denies lightheadedness, LOC, being on blood thinners. Source of History: patient Onset: an hour ago Position: other (rectal) Quality: other (bright dark red clotted blood) Timing: other (one episode) Associated Symptoms: + abdominal pain, No LOC Review of Systems See HPI for pertinent positives & negatives. A total of 10 systems reviewed and were otherwise negative. Past Medical & Surgical Medical Problems: (1) Anxiety (2) Asthma (3) Contusion of right elbow (4) Diabetes (5) HX: breast cancer (6) Hyperparathyroidism (7) Hypertension (8) Left buttock pain (9) Lower GI bleed (10) Pneumonia Surgical Problems: (1) H/O: hysterectomy (2) H/O: hysterectomy (3) Hx of section Family History Cancer Diabetes mellitus Heart disease Hypertension Lung disease Seizures Social History Smoking Status: Never Smoker Alcohol Use: none Marital Status: Housing Status: lives with significant other Occupation Status: employed Current/Historical Medications Scheduled Atorvastatin (Lipitor), 40 MG PO HS Calcium Carbonate (Calcium), 1 TAB PO BID Cholecalciferol (D 1999), 2 TABS PO BID Citalopram Hydrobromide (Celexa), 1.5 TABS PO HS Diltiazem Hcl Coated Beads (Diltiazem Cd), 180 MG PO QAM Gabapentin (Neurontin), 2 TABS PO HS Losartan Potassium (Cozaar), 100 MG PO QAM Melatonin (Kp Melatonin), 1 TAB PO HS Metformin Hcl Er (Glucophage Er), 1 TAB PO BID Omeprazole (Prilosec), 40 MG PO QAM Trazodone Hcl (Trazodone), 50 MG PO HS Scheduled PRN Diphenhydramine Hcl (Benadryl Allergy), 25-50 MG PO DAILY PRN for ALLERGIC REACTION Fexofenadine Hcl (Syeda Allergy), 1 TAB PO DAILY PRN for ALLERGIES Allergies Coded Allergies: Midazolam (Verified Allergy, Severe, CENTRAL NERVOUS REACTION "ACTING OUT ", 12/24/16) KADIE Inhibitors (Unverified Allergy, Unknown, UNKNOWN, 12/24/16) Beta Adrenergic Blockers (Unverified Allergy, Unknown, UNKNOWN, 12/24/16) CI Pigment Blue 63 (Verified Allergy, Unknown, "THROAT CLOSED UP AND TERRIBLE HEADACHE", 12/24/16) Caffeine (Verified Allergy, Unknown, HYPERACTIVITY, 12/24/16) Chocolate (Verified Allergy, Unknown, RASH, 12/24/16) [place] Oil (Verified Allergy, Unknown, HEADACHE, 12/24/16) Fesoterodine (Verified Allergy, Unknown, "THROAT CLOSED UP AND TERRIBLE HEADACHE", 12/24/16) Gentamicin (Unverified Allergy, Unknown, unknown, 12/24/16) Per PCP note Lecithin (Verified Allergy, Unknown, "THROAT CLOSED UP AND TERRIBLE HEADACHE", 12/24/16) Peanut (Verified Allergy, Unknown, ANAPLYLAXIS, 12/24/16) Zolpidem (Verified Allergy, Unknown, UNKNOWN, 12/24/16) Physical Exam Vital Signs Date Time Temp Pulse Resp B/P (MAP) Pulse Ox O2 Delivery O2 Flow Rate FiO2 12/25/16 00:09 88 18 147/73 96 Room Air 12/24/16 22:07 36.7 107 18 170/90 94 Room Air Physical Exam GENERAL: Patient is in no acute distress. HEENT: No acute trauma, normocephalic atraumatic, mucous membranes moist, no nasal congestion, no scleral icterus. NECK: No stridor, no adenopathy, no meningismus, trachea is midline. LUNGS: Clear to auscultation bilaterally, no wheeze, no rhonchi, breath sounds equal. HEART: Without murmurs gallops or rubs, regular rate and rhythm. ABDOMEN: Soft, nontender, bowel sounds positive, no hernias, no peritonitis. EXTREMITIES: No cyanosis or edema, full range of motion of all the joints without pain or difficulty, no signs for acute trauma. NEUROLOGIC: Oriented x 3, no acute motor or sensory deficits, no focal weakness. SKIN: No rash, no jaundice, no diaphoresis. RECTAL: No external source of bleeding. Digital exam reveals maroon dark blood internally. Medical Decision & Procedures Laboratory Results 12/24/16 22:41 Red Blood Count 3.96, Mean Corpuscular Volume 87.6, Mean Corpuscular Hemoglobin 29.5, Mean Corpuscular Hemoglobin Concent 33.7, Mean Platelet Volume 10.0, Neutrophils (%) (Auto) 71.2, Lymphocytes (%) (Auto) 18.6, Monocytes (%) (Auto) 7.9, Eosinophils (%) (Auto) 1.7, Basophils (%) (Auto) 0.3, Neutrophils # (Auto) 6.19, Lymphocytes # (Auto) 1.62, Monocytes # (Auto) 0.69, Eosinophils # (Auto) 0.15, Basophils # (Auto) 0.03 12/24/16 22:41 Test 12/24/16 22:41 White Blood Count 8.71 K/uL (4.8-10.8) Red Blood Count 3.96 M/uL (4.2-5.4) Hemoglobin 11.7 g/dL (12.0-16.0) Hematocrit 34.7 % (37-47) Mean Corpuscular Volume 87.6 fL (80-100) Mean Corpuscular Hemoglobin 29.5 pg (25-34) Mean Corpuscular Hemoglobin Concent 33.7 g/dl (32-36) Platelet Count 212 K/uL (130-400) Mean Platelet Volume 10.0 fL (7.4-10.4) Neutrophils (%) (Auto) 71.2 % Lymphocytes (%) (Auto) 18.6 % Monocytes (%) (Auto) 7.9 % Eosinophils (%) (Auto) 1.7 % Basophils (%) (Auto) 0.3 % Neutrophils # (Auto) 6.19 K/uL (1.4-6.5) Lymphocytes # (Auto) 1.62 K/uL (1.2-3.4) Monocytes # (Auto) 0.69 K/uL (0.11-0.59) Eosinophils # (Auto) 0.15 K/uL (0-0.5) Basophils # (Auto) 0.03 K/uL (0-0.2) RDW Standard Deviation 48.6 fL (36.4-46.3) RDW Coefficient of Variation 15.2 % (11.5-14.5) Immature Granulocyte % (Auto) 0.3 % Immature Granulocyte # (Auto) 0.03 K/uL (0.00-0.02) Prothrombin Time 10.0 SECONDS (9.0-12.0) Prothromb Time International Ratio 0.9 (0.9-1.1) Activated Partial Thromboplast Time 26.6 SECONDS (21.0-31.0) Partial Thromboplastin Ratio 1.0 Anion Gap 6.0 mmol/L (3-11) Est Creatinine Clear Calc Drug Dose 54.8 ml/min Estimated GFR () 81.0 Estimated GFR (Non- 69.9 BUN/Creatinine Ratio 13.3 (10-20) Calcium Level 8.8 mg/dl (8.5-10.1) Total Bilirubin 0.4 mg/dl (0.2-1) Aspartate Amino Transf (AST/SGOT) 15 U/L (15-37) Alanine Aminotransferase (ALT/SGPT) 21 U/L (12-78) Alkaline Phosphatase 87 U/L (45-117) Total Protein 7.4 gm/dl (6.4-8.2) Albumin 3.7 gm/dl (3.4-5.0) Globulin 3.7 gm/dl (2.5-4.0) Albumin/Globulin Ratio 1.0 (0.9-2) Laboratory results reviewed by me. Medications Administered Medications (Trade) Dose Ordered Sig/Gisela Route Start Time Stop Time Status Last Admin Dose Admin Pantoprazole Sodium 80 mg/ Dextrose 120 ml @ 480 mls/hr TODAY@2245 IV 12/24/16 22:45 10/23/17 22:59 DC 12/24/16 23:14 480 MLS/HR Pantoprazole Sodium 40 mg/ Dextrose 100 ml @ 20 mls/hr Q5H IV 12/24/16 23:00 12/25/16 03:59 12/24/16 23:14 20 MLS/HR ECG Indication: other (bleeding) Rate (beats per minute): 91 Rhythm: normal sinus Findings: no acute ischemic change, no ectopy, other (Poor R Wave Progression, baseline artifact) ED Course 2128: The patient was evaluated in room C05. A complete history and physical exam was performed. 2226: Ordered Pantoprazole Sodium 1 each IV. 5: Ordered Pantoprazole Sodium 80 mg/ Dextrose 120 ml @ 480 mls/hr IV. 2300: Ordered Pantoprazole Sodium 40 mg/Dextrose 100 ml @ 20 mls/hr IV. 2345: I discussed the patient's case with Dr. Banuelos, [facility] Hospitalist. He understands the patient's condition and agrees to accept the patient. The patient will be further evaluated. 2352: I reevaluated the patient and updated her on her results. I discussed the treatment plan and she agreed. She will be further evaluated. Medical Decision The patient is a 66 year old female who presents to the ED with complaints of an episode of rectal bleeding that occurred an hour ago. Differential diagnoses considered include upper or lower GI bleed, coagulopathy, anemia, electrolyte imbalance, hemorrhoids, diverticular bleeding, and ulcer. There is no leukocytosis. There is a mild anemia present, this is a slight drop for the patient. No significant electrolyte abnormality, kidney failure or hepatitis. There is no coagulopathy. EKG shows a sinus rhythm, no acute ischemia. On exam, patient did appear to have bleeding internally by my digital exam. The patient was placed on a Protonix drip. She is comfortable and in no distress. Given the anemia, given the rectal bleeding, a hospital stay is warranted. The bleeding may worsen, she requires frequent hemoglobin checks. I spoke to the patient and case management. The on-call hospitalist was consulted. Based on the description of her bleeding, based on my rectal exam, the bleeding appears to be coming from the lower GI tract. Medication Reconcilliation Current Medication List: was personally reviewed by me Blood Pressure Screening Patient's blood pressure: Elevated blood pressure Blood pressure disposition: Elevated BP felt to be situational Consults Time Called: 2344 Consulting Physician: Dr. Banuelos [facility] Hospitalist Returned Call: [id number] I discussed the patient's case with Dr. Banuelos, [facility] Hospitalist. He understands the patient's condition and agrees to accept the patient. The patient will be further evaluated. Impression Primary Impression: Rectal bleeding Scribe Attestation The scribe's documentation has been prepared under my direction and personally reviewed by me in its entirety. I confirm that the note above accurately reflects all work, treatment, procedures, and medical decision making performed by me. Departure Information Dispostion Being Evaluated By Hospitalist Referrals JuanA Hahn M.D. (PCP) Patient Instructions My [facility]
[2016-12-24] MEDS ORDERED: PANTOprazole INJ 40 MG in DEXTROSE 5% 100ML IV SCH (23:00)
[2016-12-24 23:02] LABS: BASO % 0.3 %; BASO ABS # 0.03 K/uL (0-0.2); COMPLETE YES; EOS % 1.7 %; HEMATOCRIT 34.7 % (37-47); IG% 0.3 %; LYMPH % 18.6 %; LYMPH ABS # 1.62 K/uL (1.2-3.4); MEAN CELL VOLUME 87.6 fL (80-100); MEAN CORPUSCULAR HEMOGLOBIN 29.5 pg (25-34); MEAN CORPUSCULAR HGB CONC 33.7 g/dl (32-36); MONO % 7.9 %; NEUT % 71.2 %; PLATELET COUNT 212 K/uL (130-400); RED BLOOD COUNT 3.96 M/uL (4.2-5.4); WHITE BLOOD COUNT 8.71 K/uL (4.8-10.8)
[2016-12-24 23:15] LABS: INR 0.9 (0.9-1.1)
[2016-12-24 23:19] LABS: BUN/CREATININE RATIO 13.3 (10-20); CALCIUM 8.8 mg/dl (8.5-10.1); CREATININE 0.86 mg/dl (0.60-1.20); POTASSIUM 3.9 mmol/L (3.5-5.1)
[2016-12-24] MEDS ORDERED: ONDANSETRON INJ 2 MG/ML 2 ML VIAL IV PRN (23:45)
[2016-12-24] MEDS ORDERED: ACETAMINOPHEN 325 MG TAB PO PRN (23:45)
--- NOTE | 2016-12-25 00:16 | History and Physical ---
History & Physical Date & Time of Service: Dec 24, 2016 at 23:57 Chief Complaint: Bleeding From Rectum Primary Care Physician: Juan A Hahn M.D. History of Present Illness Source: patient 66 y/o F Hx HTN, HPL, DM II, diverticulitis. Pt had a routine colonoscopy one month prior which revealed diverticuli, hemorrhoids and 2 anal lesions which were biopsied and proved benign. Earlier in the day she had a hathaway burrito and then developed stomach crams. This was then followed by a few bowel movements which were mixed with dark blood and clots. She has not had significant abdominal pain, nausea, vomiting or fevers. She denies SOB or lightheadedness. In September 2016 the pt had acute diverticulitis but did not have any bleeding at that time. Past Medical/Surgical History 1) HTN 2) HPL 3) Hyperparathyroidism with hypercalcemia 4) Breast CA - treated with radiation 2004 5) DM II 6) Asthma 7) Osteoarthritis with chronic joint pain 8) Diverticulitis Surgical: Parathyroidectomy Hysterectomy C-sxn Family History Cancer Diabetes mellitus Heart disease Hypertension Lung disease Seizures Social History Smoking Status: Never Smoker Marital Status: Occupational Status: employed Immunizations History of Influenza Vaccine: Yes Influenza Vaccine Date: Jan 11, 2006 History of Tetanus Vaccine?: Yes History of Pneumococcal: Unknown History of Hepatitis B Vaccine: Unknown Multi-Drug Resistant Organisms History of MDRO: No Allergies Coded Allergies: Midazolam (Verified Allergy, Severe, CENTRAL NERVOUS REACTION "ACTING OUT ", 12/24/16) KADIE Inhibitors (Unverified Allergy, Unknown, UNKNOWN, 12/24/16) Beta Adrenergic Blockers (Unverified Allergy, Unknown, UNKNOWN, 12/24/16) CI Pigment Blue 63 (Verified Allergy, Unknown, "THROAT CLOSED UP AND TERRIBLE HEADACHE", 12/24/16) Caffeine (Verified Allergy, Unknown, HYPERACTIVITY, 12/24/16) Chocolate (Verified Allergy, Unknown, RASH, 12/24/16) [place] Oil (Verified Allergy, Unknown, HEADACHE, 12/24/16) Fesoterodine (Verified Allergy, Unknown, "THROAT CLOSED UP AND TERRIBLE HEADACHE", 12/24/16) Gentamicin (Unverified Allergy, Unknown, unknown, 12/24/16) Per PCP note Lecithin (Verified Allergy, Unknown, "THROAT CLOSED UP AND TERRIBLE HEADACHE", 12/24/16) Peanut (Verified Allergy, Unknown, ANAPLYLAXIS, 12/24/16) Zolpidem (Verified Allergy, Unknown, UNKNOWN, 12/24/16) Home Medications Scheduled Atorvastatin (Lipitor), 40 MG PO HS Calcium Carbonate (Calcium), 1 TAB PO BID Cholecalciferol (D 2000), 2 TABS PO BID Citalopram Hydrobromide (Celexa), 1.5 TABS PO HS Diltiazem Hcl Coated Beads (Diltiazem Cd), 180 MG PO QAM Gabapentin (Neurontin), 2 TABS PO HS Losartan Potassium (Cozaar), 100 MG PO QAM Melatonin (Kp Melatonin), 1 TAB PO HS Metformin Hcl Er (Glucophage Er), 1 TAB PO BID Omeprazole (Prilosec), 40 MG PO QAM Trazodone Hcl (Trazodone), 50 MG PO HS Scheduled PRN Diphenhydramine Hcl (Benadryl Allergy), 25-50 MG PO DAILY PRN for ALLERGIC REACTION Fexofenadine Hcl (Syeda Allergy), 1 TAB PO DAILY PRN for ALLERGIES Review of Systems Constitutional: No fever, No chills, No sweats Eyes: No worsening of vision ENT: No hearing loss, No unusual epistaxis, No nasal symptoms Respiratory: No cough, No sputum, No wheezing Cardiovascular: No chest pain, No orthopnea, No PND Abdomen: + GI bleeding, No pain, No nausea, No vomiting Musculoskeletal: + joint pain (chronic knee and back pain reported) Genitourinary - Female: No dysuria, No urinary frequency Neurologic: No memory loss, No paralysis, No weakness Psychiatric: No depression symptoms Endocrine: No fatigue Hematologic / Lymphatic: No abnormal bleeding/bruising Integumentary: No rash Allergic / Immunologic: No environmental allergies Physical Exam Vital Signs Date Time Temp Pulse Resp B/P (MAP) Pulse Ox O2 Delivery O2 Flow Rate FiO2 12/24/16 22:07 36.7 107 18 170/90 94 Room Air General Appearance: WD/WN, no apparent distress Head: normocephalic Eyes: normal inspection ENT: normal ENT inspection, pharynx normal Neck: supple, no JVD Respiratory/Chest: chest non-tender, lungs clear, normal breath sounds Cardiovascular: regular rate, rhythm, no edema, no gallop Abdomen/GI: normal bowel sounds, non tender, soft, + fecal occult blood Back: normal inspection, no CVA tenderness, no muscle spasm, normal range of motion Neurologic/Psych: med care manager II-XII nml as tested, no motor/sensory deficits, alert, oriented x 3 Skin: normal color, warm/dry, no rash Diagnostics Laboratory Results Results Past 24 Hours Test 12/24/16 04:00 12/24/16 08:00 12/24/16 12:00 12/24/16 22:41 Range/Units White Blood Count 8.71 4.8-10.8 K/uL Red Blood Count 3.96 4.2-5.4 M/uL Hemoglobin 11.7 12.0-16.0 g/dL Hematocrit 34.7 37-47 % Mean Corpuscular Volume 87.6 80-100 fL Mean Corpuscular Hemoglobin 29.5 25-34 pg Mean Corpuscular Hemoglobin Concent 33.7 32-36 g/dl Platelet Count 212 130-400 K/uL Mean Platelet Volume 10.0 7.4-10.4 fL Neutrophils (%) (Auto) 71.2 % Lymphocytes (%) (Auto) 18.6 % Monocytes (%) (Auto) 7.9 % Eosinophils (%) (Auto) 1.7 % Basophils (%) (Auto) 0.3 % Neutrophils # (Auto) 6.19 1.4-6.5 K/uL Lymphocytes # (Auto) 1.62 1.2-3.4 K/uL Monocytes # (Auto) 0.69 0.11-0.59 K/uL Eosinophils # (Auto) 0.15 0-0.5 K/uL Basophils # (Auto) 0.03 0-0.2 K/uL RDW Standard Deviation 48.6 36.4-46.3 fL RDW Coefficient of Variation 15.2 11.5-14.5 % Immature Granulocyte % (Auto) 0.3 % Immature Granulocyte # (Auto) 0.03 0.00-0.02 K/uL Prothrombin Time 10.0 9.0-12.0 SECONDS Prothromb Time International Ratio 0.9 0.9-1.1 Activated Partial Thromboplast Time 26.6 21.0-31.0 SECONDS Partial Thromboplastin Ratio 1.0 Sodium Level 138 136-145 mmol/L Potassium Level 3.9 3.5-5.1 mmol/L Chloride Level 103 98-107 mmol/L Carbon Dioxide Level 29 21-32 mmol/L Anion Gap 6.0 3-11 mmol/L Blood Urea Nitrogen 12 7-18 mg/dl Creatinine 0.86 0.60-1.20 mg/dl Est Creatinine Clear Calc Drug Dose 54.8 ml/min Estimated GFR () 81.0 Estimated GFR (Non- 69.9 BUN/Creatinine Ratio 13.3 10-20 Random Glucose 176 70-99 mg/dl Calcium Level 8.8 8.5-10.1 mg/dl Total Bilirubin 0.4 0.2-1 mg/dl Aspartate Amino Transf (AST/SGOT) 15 15-37 U/L Alanine Aminotransferase (ALT/SGPT) 21 12-78 U/L Alkaline Phosphatase 87 45-117 U/L Total Protein 7.4 6.4-8.2 gm/dl Albumin 3.7 3.4-5.0 gm/dl Globulin 3.7 2.5-4.0 gm/dl Albumin/Globulin Ratio 1.0 0.9-2 Impression Assessment and Plan 66 y/o F Hx HTN, HPL, DM II, diverticulitis. Pt had a routine colonoscopy one month prior which revealed diverticuli, hemorrhoids and 2 anal lesions which were biopsied and proved benign. Earlier in the day she had a hathaway burrito and then developed stomach crams. This was then followed by a few bowel movements which were mixed with dark blood and clots. She has not had significant abdominal pain, nausea, vomiting or fevers. In September 2016 the pt had acute diverticulitis but did not have any bleeding at that time. 1) GI bleed - BUN is WNL and no upper GI symptoms - additionally she has confirmed diverticuli on a recent colonoscopy. We will keep the pt NPO aside from meds, trend her Hb and consult GI. She received an initial dose of IV Protonix in the ER. Her bleed is most likely lower so that additional IV Protonix is held pending GI consult. 2) HTN - cont Diltiazem, Losartan 3) DM II - placed on SS - Metformin held 4) HPL - cont Lipitor Full code - SCDs Total time for this admit including review of labs, meds, imaging - discussion with pt and ER attending 35 min Resuscitation Status FULL RESUSCITATION VTE Prophylaxis VTE Risk Assessment Done? Y/N: Yes Risk Level: Low Given or contraindicated: SCD's
[2016-12-25 00:30] VITALS: BP 172/85; PULSE 78; TEMP 36.7; O2SAT 95
[2016-12-25 00:43] VITALS: BP 156/90
[2016-12-25 01:11] VITALS: BP 156/90; PULSE 78; TEMP 36.7; O2SAT 95; BMI 23.4
[2016-12-25] MEDS ORDERED: GLUCAGON FOR INJ 1 MG VIAL SQ PRN (01:45)
[2016-12-25] MEDS ORDERED: DEXTROSE 50% 50 ML SYR IV PRN (01:45)
[2016-12-25] MEDS ORDERED: GLUCOSE 40% GEL 15 GM TUBE PO PRN (01:45)
[2016-12-25] MEDS ORDERED: GLUCOSE 10 TABS/TUBE PO PRN (01:45)
[2016-12-25] MEDS: NSS + 20MEQ KCL 1000ML 1,000 ML IV SCH ×2 (01:58→14:03)
[2016-12-25] MEDS: INSULIN ASPART 100 UNITS/ML 3 ML PEN SC SCH ×5 (02:00→23:52)
[2016-12-25 06:56] VITALS: BP 159/91; PULSE 83; TEMP 36.6; O2SAT 93
[2016-12-25] MEDS ORDERED: IV FLUIDS COMPLETED PRN (07:15)
[2016-12-25] MEDS ORDERED: INFLUENZA ADMINISTRATION CHARGE ONE (08:00)
[2016-12-25] MEDS ORDERED: INFLUENZA VACCINE HIGH DOSE 65+ 0.5 ML SYR IM. ONE (08:00)
[2016-12-25] MEDS: LOSARTAN POTASSIUM 50 MG TAB PO SCH (08:51)
[2016-12-25] MEDS: DILTIAZEM HCL 180 MG CAPCR PO SCH (08:51)
--- NOTE | 2016-12-25 09:23 | Gastrointestinal Consultation ---
Gastrointestinal Consultation Date of Consultation: Dec 25, 2016 Attending Physician: Dr. Banuelos Consulting Physician: Maria Dolores Zamudio PA-C Reason for Consultation: Lower GI bleed History of Present Illness Patient is a 66 year old female with a past medical history of hypertension, hyperlipidemia, hyperparathyroidism, breast cancer, diabetes mellitus 2, asthma , osteoarthritis, & diverticulitis who presented to the hospital after 1 episode of bright red blood per rectum that occurred after eating a hathaway burrito. She reports minimal abdominal cramping. She denies diarrhea or constipation. She reports rare/infrequent NSAID use. She had a colonoscopy on that indicated diverticulosis, internal hemorrhoids, & 2 anal nodules that were biopsied and unremarkable. Her hemoglobin was 11.7 on admission and hematocrit was 34.7. Her hemoglobin this morning was 10.3. She reported 2 more minor episodes of rectal bleeding this morning. She denies fevers or chills. She denies family history of GI malignancy or IBD. She offers no further complaints. Past Medical/Surgical History Medical Problems: (1) Abdominal pain Status: Acute (2) Acute diverticulitis Status: Acute (3) Allergic reaction Status: Acute (4) Gallstone Status: Acute (5) Rectal bleeding Status: Acute Past Medical History: Hypertension, hyperlipidemia, hyperparathyroidism, breast cancer, diabetes mellitus 2, asthma, osteoarthritis, diverticulitis Past Surgical History: parathyroidectomy, hysterectomy, c section Family History Cancer Diabetes mellitus Heart disease Hypertension Lung disease Seizures Social History Smoking Status: Never Smoker Alcohol Use: none Marital Status: Housing Status: lives with significant other Occupation Status: employed Allergies Coded Allergies: Midazolam (Verified Allergy, Severe, CENTRAL NERVOUS REACTION "ACTING OUT ", 12/24/16) KADIE Inhibitors (Unverified Allergy, Unknown, UNKNOWN, 12/24/16) Beta Adrenergic Blockers (Unverified Allergy, Unknown, UNKNOWN, 12/24/16) CI Pigment Blue 63 (Verified Allergy, Unknown, "THROAT CLOSED UP AND TERRIBLE HEADACHE", 12/24/16) Caffeine (Verified Allergy, Unknown, HYPERACTIVITY, 12/24/16) Chocolate (Verified Allergy, Unknown, RASH, 12/24/16) [place] Oil (Verified Allergy, Unknown, HEADACHE, 12/24/16) Fesoterodine (Verified Allergy, Unknown, "THROAT CLOSED UP AND TERRIBLE HEADACHE", 12/24/16) Gentamicin (Unverified Allergy, Unknown, unknown, 12/24/16) Per PCP note Lecithin (Verified Allergy, Unknown, "THROAT CLOSED UP AND TERRIBLE HEADACHE", 12/24/16) Peanut (Verified Allergy, Unknown, ANAPLYLAXIS, 12/24/16) Zolpidem (Verified Allergy, Unknown, UNKNOWN, 12/24/16) Current Medications Home Meds and Scripts Medications Dose Route/Sig Max Daily Dose Days Date Category Trazodone (Trazodone HCl) 50 Mg Tab 50 Mg PO HS 11/29/16 Reported D 2000 (Cholecalciferol) 2,000 Unit Tab 2 Tabs PO BID 11/29/16 Reported Prilosec (Omeprazole) 40 Mg Cap 40 Mg PO QAM 11/29/16 Reported Lipitor (Atorvastatin) 40 Mg Tab 40 Mg PO HS 11/29/16 Reported Cozaar (Losartan Potassium) 100 Mg Tab 100 Mg PO QAM 11/29/16 Reported Calcium (Calcium Carbonate) 500 Mg Chw 1 Tab PO BID 11/15/16 Reported Glucophage Er (Metformin HCl) 500 Mg Tab 1 Tab PO BID 09/06/16 Reported Kp Melatonin (Melatonin) 3 Mg Tab 1 Tab PO HS 09/06/16 Reported Diltiazem Cd (Diltiazem Hcl Coated Beads) 180 Mg Cap 180 Mg PO QAM 05/25/16 Reported Benadryl Allergy (Diphenhydramine Hcl) 25 Mg Tab 25-50 Mg PO DAILY PRN 05/25/16 Reported Syeda Allergy (Fexofenadine Hcl) 180 Mg Tab 1 Tab PO DAILY PRN 05/25/16 Reported Neurontin (Gabapentin) 100 Mg Cap 2 Tabs PO HS 07/16/14 Reported Celexa (Citalopram Hydrobromide) 20 Mg Tab 1.5 Tabs PO HS 03/09/13 Reported Review of Systems Constitutional: No problem reported Eyes: No problem reported Respiratory: No cough, No shortness of breath Cardiac: No chest pain Abdomen: + GI bleeding, No pain, No nausea, No vomiting, No diarrhea, No constipation Musculoskeletal: No joint pain Neuro: No problem reported Psych: No problem reported Skin: No problem reported Physical Exam Date Time Temp Pulse Resp B/P (MAP) Pulse Ox O2 Delivery O2 Flow Rate FiO2 12/25/16 08:00 Room Air 12/25/16 06:56 36.6 83 17 159/91 (113) 93 Room Air 12/25/16 01:11 36.7 78 16 156/90 95 Room Air 12/25/16 00:43 156/90 (112) 12/25/16 00:30 36.7 78 16 172/85 (114) 95 Room Air 12/25/16 00:30 Room Air 12/25/16 00:15 36.7 88 18 147/73 96 12/25/16 00:09 88 18 147/73 96 Room Air 12/24/16 22:07 36.7 107 18 170/90 94 Room Air General Appearance: WD/WN, no apparent distress Eyes: normal inspection, PERRL Respiratory/Chest: lungs clear Cardiovascular: regular rate, rhythm Abdomen: normal bowel sounds, non tender, soft Extremities: non-tender Neurologic/Psych: alert, oriented x 3 Skin: normal color Laboratory Results Last 24 Hours Test 12/24/16 12:00 12/24/16 22:41 12/25/16 02:13 12/25/16 04:07 White Blood Count 8.71 K/uL Red Blood Count 3.96 M/uL Hemoglobin 11.7 g/dL 10.3 g/dL Hematocrit 34.7 % Mean Corpuscular Volume 87.6 fL Mean Corpuscular Hemoglobin 29.5 pg Mean Corpuscular Hemoglobin Concent 33.7 g/dl Platelet Count 212 K/uL Mean Platelet Volume 10.0 fL Neutrophils (%) (Auto) 71.2 % Lymphocytes (%) (Auto) 18.6 % Monocytes (%) (Auto) 7.9 % Eosinophils (%) (Auto) 1.7 % Basophils (%) (Auto) 0.3 % Neutrophils # (Auto) 6.19 K/uL Lymphocytes # (Auto) 1.62 K/uL Monocytes # (Auto) 0.69 K/uL Eosinophils # (Auto) 0.15 K/uL Basophils # (Auto) 0.03 K/uL RDW Standard Deviation 48.6 fL RDW Coefficient of Variation 15.2 % Immature Granulocyte % (Auto) 0.3 % Immature Granulocyte # (Auto) 0.03 K/uL Prothrombin Time 10.0 SECONDS Prothromb Time International Ratio 0.9 Activated Partial Thromboplast Time 26.6 SECONDS Partial Thromboplastin Ratio 1.0 Sodium Level 138 mmol/L Potassium Level 3.9 mmol/L Chloride Level 103 mmol/L Carbon Dioxide Level 29 mmol/L Anion Gap 6.0 mmol/L Blood Urea Nitrogen 12 mg/dl Creatinine 0.86 mg/dl Est Creatinine Clear Calc Drug Dose 54.8 ml/min Estimated GFR () 81.0 Estimated GFR (Non- 69.9 BUN/Creatinine Ratio 13.3 Random Glucose 176 mg/dl Calcium Level 8.8 mg/dl Total Bilirubin 0.4 mg/dl Aspartate Amino Transf (AST/SGOT) 15 U/L Alanine Aminotransferase (ALT/SGPT) 21 U/L Alkaline Phosphatase 87 U/L Total Protein 7.4 gm/dl Albumin 3.7 gm/dl Globulin 3.7 gm/dl Albumin/Globulin Ratio 1.0 Bedside Glucose 116 mg/dl Test 12/25/16 06:09 12/25/16 08:37 Bedside Glucose 117 mg/dl Hemoglobin 10.8 g/dL Impression Patient is a 66 year old female who presented to the ER after 1 episode of BRBPR after eating a hathaway burrito. She was subsequently admitted and reportedly had 2 more episodes of rectal bleeding this AM. Plan 1) Continue to monitor H/H. Monitor for further signs of GI bleeding. 2) CT abdomen/pelvis with IV & oral contrast for further evaluation. 3) Supportive care per primary team. 4) Further recommendations pending results of testing. Thank you for allowing us to participate in the care of this patient. If you should have any further questions or concerns, do not hesitate to contact us. Agree with TIM Reeves as above Abd: Soft, NT, ND, +BS CT Scan with sigmoid thickening, but no diverticulitis No further bleeding since this AM Consider Flex Sig if further bleeding
[2016-12-25] MEDS ORDERED: OPTIRAY 320 IV PRN (09:45)
--- NOTE | 2016-12-25 12:04 | DIAGNOSTIC IMAGING REPORT ---
CT ABD/PELVIS IV AND ORAL CONT CLINICAL HISTORY: abdominal cramping, rectal bleeding COMPARISON STUDY: 09/06/2016 TECHNIQUE: Following the IV administration of 95 mL of Optiray-320, CT scan of the abdomen and pelvis was performed from the lung bases to the proximal femurs. Images are reviewed in the axial, sagittal, and coronal planes. IV contrast was administered without complication. A dose lowering technique was utilized adhering to the principles of ALARA. CT DOSE: 376.29 mGycm FINDINGS: Lower chest: There are mild basilar atelectatic changes. As a hiatal hernia. Liver: The contrast-enhanced liver is normal in size, contour, and attenuation. There is no intrahepatic biliary ductal dilatation. The hepatic veins and portal veins are patent. Gallbladder: Cholelithiasis Spleen: Normal in size and attenuation. Pancreas: Unremarkable. Adrenal glands: Unremarkable. Kidneys: There is symmetric renal cortical enhancement. The kidneys are normal in size without hydronephrosis. Bowel: There is colonic diverticulosis. There is sigmoid wall thickening, likely secondary to peridiverticular muscular hypertrophy. There are no acute peridiverticular inflammatory changes. The appendix appears normal. Peritoneum: There is no intraperitoneal free air or abdominal ascites. Vasculature: The abdominal aorta is normal in course and caliber. Adenopathy: None. Pelvic viscera: The uterus is surgically absent. Skeletal structures: No destructive osseous lesions are seen. IMPRESSION: 1. No evidence of bowel obstruction. No evidence of free air 2. Normal appendix 3. Pandiverticulosis 4. Sigmoid wall thickening, likely secondary to peridiverticular muscular hypertrophy. No current evidence of acute peridiverticular inflammatory change 5. Cholelithiasis Electronically signed by: Mahin Valencia M.D. 12/25/2016 12:03 PM Dictated Date/Time: 12/25/2016 12:00 PM
--- NOTE | 2016-12-25 12:23 | Hospitalist Progress Note ---
Hospitalist Progress Note Date of Service Dec 25, 2016. (Ban Spann CRNP) Subjective Pt evaluation today including: conversation w/ patient, physical exam, chart review, lab review, review of inpatient medication list PO Intake: npo Voiding: no voiding problems Ms. Montesinos did have a few more episodes since arriving at the hospital of [facility] blood with bowel movements. She has some abdominal tenderness but no pain. She is not nauseas or vomiting. Constitutional: No fever, No chills Respiratory: No shortness of breath Cardiovascular: No chest pain, No palpitations Abdomen: + diarrhea, + GI bleeding, No pain, No nausea, No vomiting Female : No dysuria All Other Systems: Reviewed and Negative (Ban Spann CRNP) Medications Medications Administered Medications (Trade) Dose Ordered Sig/Gisela Route Start Time Stop Time Status Last Admin Dose Admin Pantoprazole Sodium 80 mg/ Dextrose 120 ml @ 480 mls/hr TODAY@2245 IV 12/24/16 22:45 12/24/16 22:59 DC 12/24/16 23:14 480 MLS/HR Pantoprazole Sodium 40 mg/ Dextrose 100 ml @ 20 mls/hr Q5H IV 12/24/16 23:00 12/25/16 03:59 DC 12/24/16 23:14 20 MLS/HR Diltiazem HCl (Cardizem Cd Cap) 180 mg QAM PO 12/25/16 09:00 01/24/17 08:59 12/25/16 08:51 180 MG Losartan Potassium (coZAAR TAB) 100 mg QAM PO 12/25/16 09:00 01/24/17 08:59 12/25/16 08:51 100 MG Potassium Chloride/Sodium Chloride 1,000 ml @ 80 mls/hr [id number] IV 12/25/16 02:00 12/26/16 02:59 12/25/16 01:58 80 MLS/HR Influenza Virus Vaccine (Fluzone High-Dose Pf 0.5 ml) 0.5 ml ONCE ONCE IM. 12/25/16 08:00 12/25/16 08:01 DC 12/25/16 08:54 0.5 ML (Ban Spann CRNP) Objective Vital Signs Date Time Temp Pulse Resp B/P (MAP) Pulse Ox O2 Delivery O2 Flow Rate FiO2 12/25/16 08:00 Room Air 12/25/16 06:56 36.6 83 17 159/91 (113) 93 Room Air 12/25/16 01:11 36.7 78 16 156/90 95 Room Air 12/25/16 00:43 156/90 (112) 12/25/16 00:30 36.7 78 16 172/85 (114) 95 Room Air 12/25/16 00:30 Room Air 12/25/16 00:15 36.7 88 18 147/73 96 12/25/16 00:09 88 18 147/73 96 Room Air 12/24/16 22:07 36.7 107 18 170/90 94 Room Air (Ban Spann CRNP) Physical Exam Notes: General: no distress Eyes: normal inspection, PERLL Respiratory: chest non tender, clear to auscultation, normal breath sounds, no respiratory distress, no accessory muscle use Cardiac: regular rate and rhythm, no rub or gallop, no murmur, no edema, no jvd GI/: active bowel sounds, no abd pain or tenderness, soft, non distended Extremities: normal range of motion, normal strength, non tender Neuro/Psych: alert and oriented x 3, normal mood and affect Skin: normal color, dry (Ban Spann CRNP) Laboratory Results Last 24 Hours Test 12/24/16 22:41 12/25/16 02:13 12/25/16 04:07 12/25/16 06:09 White Blood Count 8.71 K/uL Red Blood Count 3.96 M/uL Hemoglobin 11.7 g/dL 10.3 g/dL Hematocrit 34.7 % Mean Corpuscular Volume 87.6 fL Mean Corpuscular Hemoglobin 29.5 pg Mean Corpuscular Hemoglobin Concent 33.7 g/dl Platelet Count 212 K/uL Mean Platelet Volume 10.0 fL Neutrophils (%) (Auto) 71.2 % Lymphocytes (%) (Auto) 18.6 % Monocytes (%) (Auto) 7.9 % Eosinophils (%) (Auto) 1.7 % Basophils (%) (Auto) 0.3 % Neutrophils # (Auto) 6.19 K/uL Lymphocytes # (Auto) 1.62 K/uL Monocytes # (Auto) 0.69 K/uL Eosinophils # (Auto) 0.15 K/uL Basophils # (Auto) 0.03 K/uL RDW Standard Deviation 48.6 fL RDW Coefficient of Variation 15.2 % Immature Granulocyte % (Auto) 0.3 % Immature Granulocyte # (Auto) 0.03 K/uL Prothrombin Time 10.0 SECONDS Prothromb Time International Ratio 0.9 Activated Partial Thromboplast Time 26.6 SECONDS Partial Thromboplastin Ratio 1.0 Sodium Level 138 mmol/L Potassium Level 3.9 mmol/L Chloride Level 103 mmol/L Carbon Dioxide Level 29 mmol/L Anion Gap 6.0 mmol/L Blood Urea Nitrogen 12 mg/dl Creatinine 0.86 mg/dl Est Creatinine Clear Calc Drug Dose 54.8 ml/min Estimated GFR () 81.0 Estimated GFR (Non- 69.9 BUN/Creatinine Ratio 13.3 Random Glucose 176 mg/dl Calcium Level 8.8 mg/dl Total Bilirubin 0.4 mg/dl Aspartate Amino Transf (AST/SGOT) 15 U/L Alanine Aminotransferase (ALT/SGPT) 21 U/L Alkaline Phosphatase 87 U/L Total Protein 7.4 gm/dl Albumin 3.7 gm/dl Globulin 3.7 gm/dl Albumin/Globulin Ratio 1.0 Bedside Glucose 116 mg/dl 117 mg/dl Test 12/25/16 08:37 12/25/16 12:08 Hemoglobin 10.8 g/dL Hepatitis C Antibody NEG (Ban Spann, JEREMY) Assessment and Plan 66 y/o F Hx HTN, HPL, DM II, diverticulitis. Pt had a routine colonoscopy one month prior which revealed diverticuli, hemorrhoids and 2 anal lesions which were biopsied and proved benign. Earlier in the day she had a hathaway burrito and then developed stomach crams. This was then followed by a few bowel movements which were mixed with dark blood and clots. She has not had significant abdominal pain, nausea, vomiting or fevers. In September 2016 the pt had acute diverticulitis but did not have any bleeding at that time. 1) GI bleed - BUN is WNL and no upper GI symptoms - additionally she has confirmed diverticuli on a recent colonoscopy. Hgb stable with q4h checks, vss She received an initial dose of IV Protonix in the ER. Her bleed is most likely lower so that additional IV Protonix is held pending GI consult. CT abd with contrast showed no acute process. 2) HTN - cont Diltiazem, Losartan 3) DM II - placed on SS - Metformin held 4) HPL - cont Lipitor Full code - SCDs (Ban Spann ., JEREMY) Attending Attestation: Pt seen/examined, chart reviewed, care plan d/w JEREMY Ban Zana. I agree w/ the luciano components of her documentation. Pt reports mild abdominal cramps and had several episodes of old looking blood per rectum this AM. No emesis. VSS no fever gen - nad heart - RRR lungs - CTA b/l abd - soft, minimally tender lower quadrants b/l, BS+ A/P: Mild acute blood loss anemia 2nd to lower GI bleeding - diverticular in origin? No obvious colitis on CT making ischemia much less likely. Serial H/H's. NPO. Appreciate GI consult. Santana Dixon MD In my clinical judgment this beneficiary meets acute admission criteria, established by [facility], that includes being hospitalized through two midnights. (Santana Dixon MD)
[2016-12-25 12:54] VITALS: Ht 162.6 cm; Wt 61.8 kg
[2016-12-25 15:01] VITALS: BP 165/89; PULSE 82; TEMP 36.8; O2SAT 93
[2016-12-25 20:07] LABS: HEMATOCRIT 33.7 % (37-47)
[2016-12-25] MEDS: GABAPENTIN 100 MG CAP PO SCH (20:31)
[2016-12-25] MEDS: ATORVASTATIN 40 MG TAB PO SCH (20:31)
[2016-12-25] MEDS: TRAZODONE HCL 50 MG TAB PO SCH (20:32)
[2016-12-25] MEDS: CITALOPRAM 20 MG TAB PO SCH (20:32)
[2016-12-25] MEDS ORDERED: NON-FORMULARY MEDICATION (Melatonin (Kp Melatonin) 1 TAB) PO SCH (21:00)
[2016-12-25 23:45] VITALS: BP 138/79; PULSE 75; TEMP 36.6; O2SAT 95
[2016-12-26] MEDS: INSULIN ASPART 100 UNITS/ML 3 ML PEN SC SCH ×4 (05:48→20:39)
[2016-12-26 07:14] LABS: HEMATOCRIT 31.4 % (37-47); MEAN CELL VOLUME 88.2 fL (80-100); MEAN CORPUSCULAR HEMOGLOBIN 29.8 pg (25-34); MEAN CORPUSCULAR HGB CONC 33.8 g/dl (32-36); MEAN PLATELET VOLUME 10.1 fL (7.4-10.4); PLATELET COUNT 184 K/uL (130-400); RED BLOOD COUNT 3.56 M/uL (4.2-5.4); WHITE BLOOD COUNT 5.69 K/uL (4.8-10.8)
[2016-12-26 07:27] VITALS: BP 165/89; PULSE 79; TEMP 36.6; O2SAT 94
[2016-12-26 07:45] VITALS: O2SAT 94
[2016-12-26 07:51] LABS: BUN/CREATININE RATIO 8.7 (10-20); CALCIUM 8.4 mg/dl (8.5-10.1); CREATININE 0.73 mg/dl (0.60-1.20); POTASSIUM 3.4 mmol/L (3.5-5.1)
[2016-12-26 09:21] VITALS: BP 167/83; PULSE 91
[2016-12-26] MEDS: LOSARTAN POTASSIUM 50 MG TAB PO SCH (09:23)
[2016-12-26] MEDS: DILTIAZEM HCL 180 MG CAPCR PO SCH (09:23)
[2016-12-26] MEDS ORDERED: POTASSIUM CHLORIDE 10 MEQ TABCR PO ONE (10:30)
--- NOTE | 2016-12-26 10:37 | Hospitalist Progress Note ---
Hospitalist Progress Note Date of Service Dec 26, 2016. (Ban Spann CRNP) Subjective Pt evaluation today including: conversation w/ patient, physical exam, chart review, lab review, review of studies, conversation w/ retail wireless sales consultant Voiding: no voiding problems Constitutional: No fever, No chills Respiratory: No shortness of breath Abdomen: + GI bleeding (small amount this morning), No pain, No nausea, No vomiting, No diarrhea All Other Systems: Reviewed and Negative (Ban Spann CRNP) Medications Medications Administered Medications (Trade) Dose Ordered Sig/Gisela Route Start Time Stop Time Status Last Admin Dose Admin Pantoprazole Sodium 80 mg/ Dextrose 120 ml @ 480 mls/hr TODAY@2245 IV 12/24/16 22:45 12/24/16 22:59 DC 12/24/16 23:14 480 MLS/HR Pantoprazole Sodium 40 mg/ Dextrose 100 ml @ 20 mls/hr Q5H IV 12/24/16 23:00 12/25/16 03:59 DC 12/24/16 23:14 20 MLS/HR Atorvastatin Calcium (Lipitor Tab) 40 mg HS PO 12/25/16 21:00 01/24/17 20:59 12/25/16 20:31 40 MG Citalopram Hydrobromide (celeXA TAB) 30 mg HS PO 12/25/16 21:00 01/24/17 20:59 12/25/16 20:32 30 MG Diltiazem HCl (Cardizem Cd Cap) 180 mg QAM PO 12/25/16 09:00 01/24/17 08:59 12/26/16 09:23 180 MG Gabapentin (Neurontin Cap) 200 mg HS PO 12/25/16 21:00 01/24/17 20:59 12/25/16 20:31 200 MG Losartan Potassium (coZAAR TAB) 100 mg QAM PO 12/25/16 09:00 01/24/17 08:59 12/26/16 09:23 100 MG Trazodone HCl (Desyrel Tab) 50 mg HS PO 12/25/16 21:00 01/24/17 20:59 12/25/16 20:32 50 MG Potassium Chloride/Sodium Chloride 1,000 ml @ 80 mls/hr [id number] IV 12/25/16 02:00 12/26/16 02:59 DC 12/25/16 14:03 80 MLS/HR Influenza Virus Vaccine (Fluzone High-Dose Pf 0.5 ml) 0.5 ml ONCE ONCE IM. 12/25/16 08:00 12/25/16 08:01 DC 12/25/16 08:54 0.5 ML (Ban Spann CRNP) Objective Vital Signs Date Time Temp Pulse Resp B/P (MAP) Pulse Ox O2 Delivery O2 Flow Rate FiO2 12/26/16 09:21 91 167/83 (111) 12/26/16 07:27 36.6 79 16 165/89 (114) 94 Room Air 12/25/16 23:45 36.6 75 16 138/79 (98) 95 Room Air 12/25/16 19:25 Room Air 12/25/16 16:00 Room Air 12/25/16 15:01 36.8 82 16 165/89 (114) 93 Room Air (Ban Spann CRNP) Physical Exam Notes: General: no distress Eyes: normal inspection, PERLL Respiratory: chest non tender, clear to auscultation, normal breath sounds, no respiratory distress, no accessory muscle use Cardiac: regular rate and rhythm, no rub or gallop, no murmur, no edema, no jvd GI/: active bowel sounds, no abd pain or tenderness, soft, non distended Extremities: normal range of motion, normal strength, non tender Neuro/Psych: alert and oriented x 3, normal mood and affect Skin: normal color, dry (Ban Spann CRNP) Laboratory Results Last 24 Hours Test 12/25/16 12:08 12/25/16 13:48 12/25/16 18:31 12/25/16 19:53 Hemoglobin 11.1 g/dL 11.7 g/dL Bedside Glucose 105 mg/dl 103 mg/dl Hematocrit 33.7 % Test 12/25/16 23:45 12/26/16 05:47 12/26/16 06:43 12/26/16 08:02 Bedside Glucose 94 mg/dl 103 mg/dl 105 mg/dl White Blood Count 5.69 K/uL Red Blood Count 3.56 M/uL Hemoglobin 10.6 g/dL Hematocrit 31.4 % Mean Corpuscular Volume 88.2 fL Mean Corpuscular Hemoglobin 29.8 pg Mean Corpuscular Hemoglobin Concent 33.8 g/dl RDW Standard Deviation 49.8 fL RDW Coefficient of Variation 15.4 % Platelet Count 184 K/uL Mean Platelet Volume 10.1 fL Sodium Level 140 mmol/L Potassium Level 3.4 mmol/L Chloride Level 106 mmol/L Carbon Dioxide Level 27 mmol/L Anion Gap 7.0 mmol/L Blood Urea Nitrogen 6 mg/dl Creatinine 0.73 mg/dl Est Creatinine Clear Calc Drug Dose 64.6 ml/min Estimated GFR () 98.8 Estimated GFR (Non- 85.2 BUN/Creatinine Ratio 8.7 Random Glucose 103 mg/dl Calcium Level 8.4 mg/dl (Ban Spann CRNP) Assessment and Plan 66 y/o F Hx HTN, HPL, DM II, diverticulitis. Pt had a routine colonoscopy one month prior which revealed diverticuli, hemorrhoids and 2 anal lesions which were biopsied and proved benign. Earlier in the day she had a hathaway burrito and then developed stomach crams. This was then followed by a few bowel movements which were mixed with dark blood and clots. She has not had significant abdominal pain, nausea, vomiting or fevers. In September 2016 the pt had acute diverticulitis but did not have any bleeding at that time. GI bleed - BUN is WNL and no upper GI symptoms - additionally she has confirmed diverticuli on a recent colonoscopy. Hgb stable, vss She received an initial dose of IV Protonix in the ER. Her bleed is most likely lower so that additional IV Protonix is held pending GI consult. CT abd with contrast showed no acute process. GI signed off Clear liquid diet Hypokalemia - repleated HTN - cont Diltiazem, Losartan DM II - placed on SS - Metformin held HPL - cont Lipitor Full code - SCDs (Ban Spann CRNP) DIGITIZER OPERATOR Physician Supervision Note: I interviewed and examined the patient. Discussed with Ban Spann DIGITIZER OPERATOR and agree with findings and plan as documented in the note. Any exceptions or clarifications are listed here: None Patient is concern for lower GI bleed, GI medicine signed off, patient did not do very well with liquid diet, did have loose bowel movement with some blood in it Vital signs are stable Patient is uncomfortable although her exam is benign with normal active bowel sounds soft and nontender next Abdominal pain concern for lower GI bleed supportive care at this time follow hemoglobin may reengage GI medicine if needed Documented By: Johnathan Marsh (Johnathan Marsh M.D.)
--- NOTE | 2016-12-26 10:46 | Gastroenterology Progress Note ---
Progress Note Date of Service: Dec 26, 2016 Subjective Pt evaluation today including: conversation w/ patient, physical exam, lab review, review of studies Patient is a 66 yo female who is hospitalized for lower GI bleeding. She had an unremarkable CT of the abdomen/pelvis on 12/25. She denies further bleeding. She is not experiencing any abdominal pain, constipation, or diarrhea. She would like to eat. Her H/H is stable at 10.6/31.4. She offers no further complaints. Review of Systems Constitutional: No fever, No chills Respiratory: No cough, No shortness of breath Cardiac: No chest pain Abdomen: No pain, No nausea, No vomiting, No diarrhea, No constipation, No GI bleeding Musculoskeletal: No joint pain Neuro: No problem reported Psych: No problem reported Skin: No problem reported Medications Current Inpatient Medications Medications (Trade) Dose Ordered Sig/Gisela Route Start Time Stop Time Status Last Admin Dose Admin Atorvastatin Calcium (Lipitor Tab) 40 mg HS PO 12/25/16 21:00 01/24/17 20:59 12/25/16 20:31 40 MG Citalopram Hydrobromide (celeXA TAB) 30 mg HS PO 12/25/16 21:00 01/24/17 20:59 12/25/16 20:32 30 MG Diltiazem HCl (Cardizem Cd Cap) 180 mg QAM PO 12/25/16 09:00 01/24/17 08:59 12/26/16 09:23 180 MG Gabapentin (Neurontin Cap) 200 mg HS PO 12/25/16 21:00 01/24/17 20:59 12/25/16 20:31 200 MG Losartan Potassium (coZAAR TAB) 100 mg QAM PO 12/25/16 09:00 01/24/17 08:59 12/26/16 09:23 100 MG Trazodone HCl (Desyrel Tab) 50 mg HS PO 12/25/16 21:00 01/24/17 20:59 12/25/16 20:32 50 MG Acetaminophen (Tylenol Tab) 650 mg Q4H PRN PO 12/24/16 23:45 01/23/17 23:44 Ondansetron HCl (Zofran Inj) 4 mg Q6H PRN IV 12/24/16 23:45 01/23/17 23:44 Insulin Aspart (novoLOG ASPART) SLIDING SCALE G... Q6 SC 12/25/16 02:00 01/24/17 01:59 Glucose (Glucose 40% Gel) 15-30 GRAMS 15 GRAMS... UD PRN PO 12/25/16 01:45 01/24/17 01:44 Glucose (Glucose Chew Tab) 4-8 Tablets 4 Tabl... UD PRN PO 12/25/16 01:45 01/24/17 01:44 Dextrose (Dextrose 50% 50ML Syringe) 25-50ML OF 50% DW IV FOR... UD PRN IV 12/25/16 01:45 01/24/17 01:44 Glucagon (Glucagon Inj) 1 mg UD PRN SQ 12/25/16 01:45 01/24/17 01:44 Miscellaneous (Iv Fluids Completed) 1 ea PRN PRN N/A 12/25/16 07:15 12/25/17 07:14 Ioversol (Optiray 320) 125 ml UD PRN IV 12/25/16 09:45 12/29/16 09:44 Objective Vital Signs Date Time Temp Pulse Resp B/P (MAP) Pulse Ox O2 Delivery O2 Flow Rate FiO2 12/26/16 09:21 91 167/83 (111) 12/26/16 07:45 94 Room Air 12/26/16 07:27 36.6 79 16 165/89 (114) 94 Room Air 12/25/16 23:45 36.6 75 16 138/79 (98) 95 Room Air 12/25/16 19:25 Room Air 12/25/16 16:00 Room Air 12/25/16 15:01 36.8 82 16 165/89 (114) 93 Room Air Physical Exam General Appearance: WD/WN, no apparent distress Eyes: normal inspection, PERRL Respiratory/Chest: lungs clear, normal breath sounds Cardiovascular: regular rate, rhythm Abdomen: normal bowel sounds, non tender, soft Extremities: non-tender Neurologic/Psych: alert, oriented x 3 Skin: normal color Laboratory Results Last 24 Hours Test 12/25/16 12:08 12/25/16 13:48 12/25/16 18:31 12/25/16 19:53 Hemoglobin 11.1 g/dL 11.7 g/dL Bedside Glucose 105 mg/dl 103 mg/dl Hematocrit 33.7 % Test 12/25/16 23:45 12/26/16 05:47 12/26/16 06:43 12/26/16 08:02 Bedside Glucose 94 mg/dl 103 mg/dl 105 mg/dl White Blood Count 5.69 K/uL Red Blood Count 3.56 M/uL Hemoglobin 10.6 g/dL Hematocrit 31.4 % Mean Corpuscular Volume 88.2 fL Mean Corpuscular Hemoglobin 29.8 pg Mean Corpuscular Hemoglobin Concent 33.8 g/dl RDW Standard Deviation 49.8 fL RDW Coefficient of Variation 15.4 % Platelet Count 184 K/uL Mean Platelet Volume 10.1 fL Sodium Level 140 mmol/L Potassium Level 3.4 mmol/L Chloride Level 106 mmol/L Carbon Dioxide Level 27 mmol/L Anion Gap 7.0 mmol/L Blood Urea Nitrogen 6 mg/dl Creatinine 0.73 mg/dl Est Creatinine Clear Calc Drug Dose 64.6 ml/min Estimated GFR () 98.8 Estimated GFR (Non- 85.2 BUN/Creatinine Ratio 8.7 Random Glucose 103 mg/dl Calcium Level 8.4 mg/dl Assessment and Plan Patient is a 66 yo female who was hospitalized with lower GI bleeding, presumed diverticular in nature. The patient has had no further bleeding & H/H is stable. 1) Advance diet. 2) Take 1 tablespoon Metamucil daily in 8 oz noncarbonated beverage as an outpatient. 3) If bleeding reoccurs, would consider flexible sigmoidoscopy. Patient is aware of how to get in touch with our outpatient clinic for further issues. Thank you for allowing us to participate in the care of this patient. If you should have any further questions or concerns, do not hesitate to contact us. Agree with TIM Reeves as above Abd: Soft, NT, ND, +BS No further Rectal bleeding. Continue current therapy
[2016-12-26] MEDS ORDERED: NURSING VERBAL MED ORDER ONE (13:00)
[2016-12-26 15:21] VITALS: BP 156/90; PULSE 79; TEMP 36.8; O2SAT 94
[2016-12-26] MEDS: CITALOPRAM 20 MG TAB PO SCH ×2 (20:38→20:40)
[2016-12-26] MEDS: GABAPENTIN 100 MG CAP PO SCH (20:40)
[2016-12-26] MEDS: ATORVASTATIN 40 MG TAB PO SCH (20:40)
[2016-12-26] MEDS: TRAZODONE HCL 50 MG TAB PO SCH (20:40)
[2016-12-26 23:35] VITALS: BP 148/75; PULSE 70; TEMP 36.7; O2SAT 96
[2016-12-27 07:28] VITALS: BP 151/93; PULSE 90; TEMP 36.9; O2SAT 93
[2016-12-27 07:45] LABS: HEMATOCRIT 32.5 % (37-47); MEAN CELL VOLUME 88.3 fL (80-100); MEAN CORPUSCULAR HEMOGLOBIN 28.8 pg (25-34); MEAN CORPUSCULAR HGB CONC 32.6 g/dl (32-36); MEAN PLATELET VOLUME 10.1 fL (7.4-10.4); PLATELET COUNT 182 K/uL (130-400); RED BLOOD COUNT 3.68 M/uL (4.2-5.4); WHITE BLOOD COUNT 4.56 K/uL (4.8-10.8)
[2016-12-27] MEDS: INSULIN ASPART 100 UNITS/ML 3 ML PEN SC SCH ×4 (08:00→21:00)
[2016-12-27 08:15] LABS: CREATININE 0.77 mg/dl (0.60-1.20)
[2016-12-27 08:16] LABS: CALCIUM 8.2 mg/dl (8.5-10.1); POTASSIUM 3.5 mmol/L (3.5-5.1)
[2016-12-27] MEDS: LOSARTAN POTASSIUM 50 MG TAB PO SCH (08:48)
[2016-12-27] MEDS: DILTIAZEM HCL 180 MG CAPCR PO SCH (08:48)
[2016-12-27 10:02] VITALS: O2SAT 93
[2016-12-27 11:40] VITALS: BP 150/90; PULSE 93; TEMP 37; O2SAT 93
[2016-12-27 15:16] VITALS: BP 147/77; PULSE 83; TEMP 36.8; O2SAT 95
--- NOTE | 2016-12-27 15:18 | Hospitalist Progress Note ---
Hospitalist Progress Note Date of Service Dec 27, 2016. (Ban Spann, JEREMY) Subjective Pt evaluation today including: conversation w/ patient, physical exam, chart review, lab review, review of studies, review of inpatient medication list Ms. Montesinos has not had any bleeding today with bowel movements. She continues to have "explosive diarrhea" and gas after eating but says this has gone on for months. Additional Comments: Constitutional: no chills, aches, sweats or fever Respiratory: no sob,cough, sputum, or wheezing Cardiac: no chest pain, palpitations, edema, orthopnea or lightheadedness GI: see HPI, lower abdominal tenderness, no nausea, vomiting, diarrhea or constipation : no dysuria or hesitancy Extremities: no joint pain or weakness Skin: no rash All Other Systems: Reviewed and Negative (Ban Spann, JEREMY) Medications Medications Administered Medications (Trade) Dose Ordered Sig/Gisela Route Start Time Stop Time Status Last Admin Dose Admin Pantoprazole Sodium 80 mg/ Dextrose 120 ml @ 480 mls/hr TODAY@2245 IV 12/24/16 22:45 12/24/16 22:59 DC 12/24/16 23:14 480 MLS/HR Pantoprazole Sodium 40 mg/ Dextrose 100 ml @ 20 mls/hr Q5H IV 12/24/16 23:00 12/25/16 03:59 DC 12/24/16 23:14 20 MLS/HR Atorvastatin Calcium (Lipitor Tab) 40 mg HS PO 12/25/16 21:00 01/24/17 20:59 12/26/16 20:40 40 MG Citalopram Hydrobromide (celeXA TAB) 30 mg HS PO 12/25/16 21:00 01/24/17 20:59 12/26/16 20:40 30 MG Diltiazem HCl (Cardizem Cd Cap) 180 mg QAM PO 12/25/16 09:00 01/24/17 08:59 12/27/16 08:48 180 MG Gabapentin (Neurontin Cap) 200 mg HS PO 12/25/16 21:00 01/24/17 20:59 12/26/16 20:40 200 MG Losartan Potassium (coZAAR TAB) 100 mg QAM PO 12/25/16 09:00 01/24/17 08:59 12/27/16 08:48 100 MG Trazodone HCl (Desyrel Tab) 50 mg HS PO 12/25/16 21:00 01/24/17 20:59 12/26/16 20:40 50 MG Potassium Chloride/Sodium Chloride 1,000 ml @ 80 mls/hr [id number] IV 12/25/16 02:00 12/26/16 02:59 DC 12/25/16 14:03 80 MLS/HR Influenza Virus Vaccine (Fluzone High-Dose Pf 0.5 ml) 0.5 ml ONCE ONCE IM. 12/25/16 08:00 12/25/16 08:01 DC 12/25/16 08:54 0.5 ML Potassium Chloride (Klor-Con M10) 40 meq NOW ONCE PO 12/26/16 10:30 12/26/16 10:31 DC 12/26/16 11:19 40 MEQ (Ban Spann, JEREMY) Objective Vital Signs Date Time Temp Pulse Resp B/P (MAP) Pulse Ox O2 Delivery O2 Flow Rate FiO2 12/27/16 11:40 37.0 93 16 150/90 (110) 93 Room Air 12/27/16 10:02 93 Room Air 12/27/16 07:28 36.9 90 18 151/93 (112) 93 Room Air 12/27/16 07:15 Room Air 12/26/16 23:35 36.7 70 16 148/75 (99) 96 Room Air 12/26/16 23:20 Room Air 12/26/16 19:20 Room Air 12/26/16 15:45 Room Air 12/26/16 15:21 36.8 79 18 156/90 (112) 94 Room Air (Ban Spann, CLINICAL RESEARCH ASSISTANT) Physical Exam Notes: General: no distress Eyes: normal inspection, PERLL Respiratory: chest non tender, clear to auscultation, normal breath sounds, no respiratory distress, no accessory muscle use Cardiac: regular rate and rhythm, no rub or gallop, no murmur, no edema, no jvd GI/: active bowel sounds, no abd pain, tender left lower quadrant, soft, non distended Extremities: normal range of motion, normal strength, non tender Neuro/Psych: drowsy and oriented x 3, normal mood and affect Skin: normal color, dry (Ban Spann, JEREMY) Laboratory Results Last 24 Hours Test 12/26/16 17:08 12/26/16 20:34 12/27/16 07:08 12/27/16 12:05 Bedside Glucose 105 mg/dl 118 mg/dl 131 mg/dl White Blood Count 4.56 K/uL Red Blood Count 3.68 M/uL Hemoglobin 10.6 g/dL Hematocrit 32.5 % Mean Corpuscular Volume 88.3 fL Mean Corpuscular Hemoglobin 28.8 pg Mean Corpuscular Hemoglobin Concent 32.6 g/dl RDW Standard Deviation 49.5 fL RDW Coefficient of Variation 15.4 % Platelet Count 182 K/uL Mean Platelet Volume 10.1 fL Sodium Level 142 mmol/L Potassium Level 3.5 mmol/L Chloride Level 109 mmol/L Carbon Dioxide Level 26 mmol/L Anion Gap 7.0 mmol/L Blood Urea Nitrogen 6 mg/dl Creatinine 0.77 mg/dl Est Creatinine Clear Calc Drug Dose 61.3 ml/min Estimated GFR () 92.6 Estimated GFR (Non- 79.9 BUN/Creatinine Ratio 8.0 Random Glucose 116 mg/dl Calcium Level 8.2 mg/dl (Ban Spann CRNP) Assessment and Plan 66 y/o F Hx HTN, HPL, DM II, diverticulitis. Pt had a routine colonoscopy one month prior which revealed diverticuli, hemorrhoids and 2 anal lesions which were biopsied and proved benign. Earlier in the day she had a hathaway burrito and then developed stomach crams. This was then followed by a few bowel movements which were mixed with dark blood and clots. She has not had significant abdominal pain, nausea, vomiting or fevers. In September 2016 the pt had acute diverticulitis but did not have any bleeding at that time. GI bleed - BUN is WNL and no upper GI symptoms, no further bleeding today - additionally she has confirmed diverticuli and hemorrhoids on a recent colonoscopy. Hgb stable, vss She received an initial dose of IV Protonix in the ER. Her bleed is most likely lower so that additional IV Protonix is held CT abd with contrast showed no acute process. GI signed off Diet advanced Hypokalemia - repleated HTN - cont Diltiazem, Losartan DM II - placed on SS - Metformin held HPL - cont Lipitor Full code - SCDs (Ban Spann ., JEREMY) STORE CLERK Physician Supervision Note: I interviewed and examined the patient. Discussed with Ban Spann STORE CLERK and agree with findings and plan as documented in the note. Any exceptions or clarifications are listed here: None Patient with persistent postprandial abdominal discomfort and loose bowel movement. The patient states however that her abdominal discomfort is the same no matter what she eats or drinks. Patient has no further blood in her stool. Patient states that she has occasional loose bowel movements at home. Vital signs are stable Abdomen is normal active bowel sounds soft nontender nondistended no organomegaly no rebound no guarding Abdominal discomfort and diarrhea of undetermined significance will advance diet referred outpatient GI workup consider malabsorption will now recommend low -fat diet Documented By: Johnathan Marsh (Johnathan Marsh M.D.)
[2016-12-27] MEDS: GABAPENTIN 100 MG CAP PO SCH (21:03)
[2016-12-27] MEDS: ATORVASTATIN 40 MG TAB PO SCH (21:03)
[2016-12-27] MEDS: CITALOPRAM 20 MG TAB PO SCH (21:04)
[2016-12-27] MEDS: TRAZODONE HCL 50 MG TAB PO SCH (21:04)
[2016-12-27 22:50] VITALS: BP 144/81; PULSE 79; TEMP 36.7; O2SAT 93
[2016-12-28 07:59] VITALS: BP 148/88; PULSE 86; TEMP 36.1; O2SAT 96
[2016-12-28] MEDS: INSULIN ASPART 100 UNITS/ML 3 ML PEN SC SCH ×2 (08:00→12:00)
[2016-12-28] MEDS: DILTIAZEM HCL 180 MG CAPCR PO SCH (09:14)
[2016-12-28] MEDS: LOSARTAN POTASSIUM 50 MG TAB PO SCH (09:14)
[2016-12-28] MEDS ORDERED: PANTOprazole SOD 40 MG TAB PO STA (09:49)
--- NOTE | 2016-12-28 10:13 | Discharge Instructions ---
Discharge Instructions Date of Service Dec 28, 2016. Admission Reason for Admission: Lower Gi Bleed Discharge Discharge Diagnosis / Problem: GI Bleed Discharge Goals Goal(s): Improve disease control Activity Recommendations Activity Limitations: resume your previous activity . Instructions / Follow-Up Instructions / Follow-Up Please follow up with GI and your primary physician with appointments included in discharge instructions. As we discussed, my suspicion is that you may have IBS or possibly a malabsorption condition that resulted in diarrhea with irritation of your hemorrhoids leading to bleeding. It does not appear that you have any other source of bleeding from you imaging done here at the hospital and also your recent colonoscopy. I also do not suspect an infectious source for your bleeding given your normal white blood cell count and lack of fever or any other signs of infection. Your follow up with GI can be used to discern the source of the gas/diarrhea you have been experiencing now that the urgent issue of bleeding has resolved. Current Hospital Diet Patient's current hospital diet: Diabetes Type 2 Diet, Low Fat Diet Discharge Diet Recommended Diet: Diabetes Type 2 Diet Procedures Procedures Performed: Abdominal CT Pending Studies Studies pending at discharge: no Medical Emergencies . Who to Call and When: Medical Emergencies: If at any time you feel your situation is an emergency, please call 911 immediately. . Non-Emergent Contact Non-Emergency issues call your: Primary Care Provider Call Non-Emergent contact if: you have a fever, your pain is not controlled, you have any medication questions . Past History Medical & Surgical History: (1) Lower GI bleed (2) Diabetes (3) Anxiety (4) Hypertension . "Provider Documentation" section prepared by Ban Spann. . VTE Core Measure Inpt VTE Proph given/why not?: SCD's
[2016-12-28 10:59] VITALS: BP 148/88; PULSE 86; TEMP 36.1; O2SAT 96
[2016-12-28 11:36] VITALS: BP 148/98; PULSE 84; PULSE 86; TEMP 36.8; O2SAT 96
--- NOTE | 2016-12-28 14:19 | Discharge Summary ---
Discharge Summary Date of Service Dec 28, 2016. (Ban Spann CRNP) Discharge Summary Admission Date: Dec 25, 2016 at 19:15 Discharge Date: Dec 28, 2016 Discharge Disposition: Home Principal Diagnosis: GI Bleed Problems/Secondary Diagnoses: HTN 2) HPL 3) Hyperparathyroidism with hypercalcemia 4) Breast CA - treated with radiation 2004 5) DM II 6) Asthma 7) Osteoarthritis with chronic joint pain 8) Diverticulitis Immunizations: Have You Had Influenza Vaccine: Yes Influenza Vaccine Date: Jan 11, 2006 History of Tetanus Vaccine?: Yes History of Pneumococcal: Unknown History of Hepatitis B Vaccine: Unknown Procedures: Abd CT IMPRESSION: 1. No evidence of bowel obstruction. No evidence of free air 2. Normal appendix 3. Pandiverticulosis 4. Sigmoid wall thickening, likely secondary to peridiverticular muscular hypertrophy. No current evidence of acute peridiverticular inflammatory change 5. Cholelithiasis Consultations: Dr. Hakan PALMA (Ban Spann CRNP) Medication Reconciliation Continued Medications: Atorvastatin (Lipitor) 40 Mg Tab 40 MG PO HS Calcium Carbonate (Calcium) 500 Mg Chw 1 TAB PO BID Cholecalciferol (D 2000) 2,000 Unit Tab 2 TABS PO BID Citalopram Hydrobromide (Celexa) 20 Mg Tab 1.5 TABS PO HS Diltiazem Hcl Coated Beads (Diltiazem Cd) 180 Mg Cap 180 MG PO QAM Diphenhydramine Hcl (Benadryl Allergy) 25 Mg Tab 25-50 MG PO DAILY PRN for ALLERGIC REACTION Fexofenadine Hcl (Syeda Allergy) 180 Mg Tab 1 TAB PO DAILY PRN for ALLERGIES Gabapentin (Neurontin) 100 Mg Cap 2 TABS PO HS Losartan Potassium (Cozaar) 100 Mg Tab 100 MG PO QAM Melatonin (Kp Melatonin) 3 Mg Tab 1 TAB PO HS Metformin Hcl Er (Glucophage Er) 500 Mg Tab 1 TAB PO BID Omeprazole (Prilosec) 40 Mg Cap 40 MG PO QAM Trazodone Hcl (Trazodone) 50 Mg Tab 50 MG PO HS Discharge Exam ROS Constitutional: no chills, aches, sweats or fever Respiratory: no sob,cough, sputum, or wheezing Cardiac: no chest pain, palpitations, edema, orthopnea or lightheadedness GI: no abdominal pain, nausea, vomiting, continues to have gas and diarrhea : no dysuria or hesitancy Extremities: no joint pain or weakness Skin: no rash PE General: no distress Eyes: normal inspection, PERLL Respiratory: chest non tender, clear to auscultation, normal breath sounds, no respiratory distress, no accessory muscle use Cardiac: regular rate and rhythm, no rub or gallop, no murmur, no edema, no jvd GI/: active bowel sounds, no abd pain or tenderness, soft, non distended Extremities: normal range of motion, normal strength, non tender Neuro/Psych: drowsy and oriented x 3, normal mood and affect Skin: normal color, dry (Ban Spann CRNP) Hospital Course 66 y/o F Hx HTN, HPL, DM II, diverticulitis. Pt had a routine colonoscopy one month prior which revealed diverticuli, hemorrhoids and 2 anal lesions which were biopsied and proved benign. She developed stomach cramps after eating followed by a few bowel movements which were mixed with dark blood and clots. She has not had significant abdominal pain, nausea, vomiting or fevers. In September 2016 the pt had acute diverticulitis but did not have any bleeding at that time. GI bleed - BUN is WNL and no upper GI symptoms, no further bleeding today Hgb stable, vss She received an initial dose of IV Protonix in the ER. Her bleed is most likely lower so that additional IV Protonix is held CT abd with contrast showed no acute process. GI signed off Diet advanced Diarrhea and gas persisted though bleeding stopped. I think it is likely that this is IBS which irritated her internal hemorrhoids and caused bleeding. Patient has been experiencing diarrhea and gas for months. When asked she admits to quite a number of stressors in her life such as a son with brain cancer, an autistic son who just started living on his own, with uncontrolled diabetes and financial difficulties. Hypokalemia - repleated HTN - cont Diltiazem, Losartan DM II - placed on SS - Metformin held HPL - cont Lipitor Full code - SCDs Total Time Spent: Less than 30 minutes This includes examination of the patient, discharge planning, medication reconciliation, and communication with other providers. (Ban Spann CRNP) TAPE STRINGER Physician Supervision Note: I interviewed and examined the patient. Discussed with Ban Guillard TAPE STRINGER and agree with findings and plan as documented in the note. Any exceptions or clarifications are listed here: None This patient presented with concern for GI bleed acute bleeding was ruled out spell the patient had persistent abdominal discomfort there did not appear to be an effect and acute cause of infection or obstruction however the patient did relate significant psychological stressors including illness in her family of her sons and . The patient agreed that this likely may be the etiology of her pain she typically is followed by an outpatient psychiatrist and will try to move her appointment forward as she hasn't scheduled for [facility] At the time of discharge she is awake alert vitals are stable abdominal pain and quieted down I recommend that she have frequent small meals she voices understanding of such Documented By: Johnathan Marsh (Johnathan Marsh M.D.) Discharge Instructions Please refer to the electronic Patient Visit Report (Discharge Instructions) for additional information. (Ban Spann CRNP) Follow-Up Dr. Mcclendon Primary care in 1 week (Ban Spann CRNP) Additional Copies To Tobi Mcclendon D.O.
== END 2016-12-28 15:30 | disposition home or self-care (01) | DRG 379 ==
LOC: C.EDB 22:03 → C.MSN 23:43 → ENRESERV 12-25 00:02 → OBSVTOIN 12-25 19:15
PROVIDERS: ADMIT Internal Medicine; ATTEND Internal Medicine
DX: K92.2 Gastrointestinal hemorrhage, unspecified (principal); K58.0 Irritable bowel syndrome with diarrhea; K64.8 Other hemorrhoids; E87.6 Hypokalemia; I10 Essential (primary) hypertension; E11.9 Type 2 diabetes mellitus without complications; E78.5 Hyperlipidemia, unspecified; Z87.19 Personal history of other diseases of the digestive system; Z85.3 Personal history of malignant neoplasm of breast; Z79.84 Long term (current) use of oral hypoglycemic drugs; Z79.899 Other long term (current) drug therapy; Z88.1 Allergy status to other antibiotic agents; Z88.4 Allergy status to anesthetic agent; Z83.3 Family history of diabetes mellitus; Z82.49 Family history of ischemic heart disease and other diseases of the circulatory system; Z83.6 Family history of other diseases of the respiratory system; Z82.0 Family history of epilepsy and other diseases of the nervous system

== ENCOUNTER 2017-02-26 20:56 | Emergency (ER) | payer BC ==
[~2017-02-26] VITALS: Ht 162.6 cm; Wt 61.8 kg
[~2017-02-26 20:56] MED LIST changes: -DILT180C58 PO; +DILT180C96 PO; -OXYC1CAP5 PO
[2017-02-26 21:01] VITALS: TEMP 36.6; Ht 162.6 cm; Wt 61.8 kg
[2017-02-26] MEDS ORDERED: HYDROCODONE/ACETAMOPHEN 5/325MG TAB PO STA (21:08)
--- NOTE | 2017-02-26 21:41 | DIAGNOSTIC IMAGING REPORT ---
L KNEE 3 VIEWS CLINICAL HISTORY: Knee pain at lateral patella s/p trauma. COMPARISON: Left knee radiographs March 16, 2013. FINDINGS: Alignment of the left knee is anatomic. No acute fracture or joint effusion is identified. There is mild spurring of the patella at the insertion of quadriceps. There is minimal medial compartment joint space narrowing. IMPRESSION: No acute fracture or joint effusion of the left knee. Electronically signed by: Arnel Gray M.D. 02/26/2017 9:40 PM Dictated Date/Time: 02/26/2017 9:39 PM
--- NOTE | 2017-02-26 22:03 | EMERGENCY ROOM VISIT NOTE ---
History First contact with patient: 21:04 Chief Complaint: KNEEPAIN Stated Complaint: L KNEE History of Present Illness The patient is a 66 year old female who presents to the Emergency Room via private vehicle accompanied by with complaints of "left knee pain". The patient states that yesterday she sat down at the dining room table and while sitting in the chair she turned and struck the left lateral patella off of a solid object. She notes pain since then. She rates the overall pain as a 3/10. Review of Systems A complete 6-point Review of Systems was discussed with the patient, with pertinent positives and negatives listed in the History of Present Illness. All remaining Review of Systems questions can be considered negative unless otherwise specified. Past Medical/Surgical History Medical Problems: (1) Anxiety (2) Asthma (3) Contusion of right elbow (4) Diabetes (5) HX: breast cancer (6) Hyperparathyroidism (7) Hypertension (8) Left buttock pain (9) Lower GI bleed (10) Pneumonia Surgical Problems: (1) H/O: hysterectomy (2) H/O: hysterectomy (3) Hx of section Family History Cancer Diabetes mellitus Heart disease Hypertension Lung disease Seizures Social History Smoking Status: Never Smoker Alcohol Use: none Marital Status: Housing Status: lives with significant other Occupation Status: employed Current/Historical Medications Scheduled Atorvastatin (Lipitor), 40 MG PO HS Calcium Carbonate (Calcium), 1 TAB PO BID Cholecalciferol (D 1999), 2 TABS PO BID Citalopram Hydrobromide (Celexa), 1.5 TABS PO HS Diltiazem Hcl Coated Beads (Diltiazem Cd), 180 MG PO QAM Gabapentin (Neurontin), 2 TABS PO HS Losartan Potassium (Cozaar), 100 MG PO QAM Melatonin (Kp Melatonin), 1 TAB PO HS Metformin Hcl Er (Glucophage Er), 1 TAB PO BID Omeprazole (Prilosec), 40 MG PO QAM Trazodone Hcl (Trazodone), 50 MG PO HS Scheduled PRN Diphenhydramine Hcl (Benadryl Allergy), 25-50 MG PO DAILY PRN for ALLERGIC REACTION Fexofenadine Hcl (Syeda Allergy), 1 TAB PO DAILY PRN for ALLERGIES Physical Exam Vital Signs Date Time Temp Pulse Resp B/P (MAP) Pulse Ox O2 Delivery O2 Flow Rate FiO2 02/26/17 22:20 71 20 146/88 95 02/26/17 21:01 36.6 76 18 161/95 96 Room Air Physical Exam VITAL SIGNS - Vital signs and nursing notes were reviewed. Stable. GENERAL -66-year-old female appearing her stated age who is in no acute distress. Communicates well with provider and answers questions appropriately. SKIN - Without rashes. No petechial rashes. The integument is intact overlying the left knee. There is slight edema and erythema noted to the left lateral portion of the anterior patella. EXTREMITIES - pinpoint tenderness overlying the left anterior lateral patella. There is no proximal or distal tenderness. Medical Decision & Procedures ER Provider Diagnostic Interpretation: L KNEE 3 VIEWS CLINICAL HISTORY: Knee pain at lateral patella s/p trauma. COMPARISON: Left knee radiographs March 16, 2013. FINDINGS: Alignment of the left knee is anatomic. No acute fracture or joint effusion is identified. There is mild spurring of the patella at the insertion of quadriceps. There is minimal medial compartment joint space narrowing. IMPRESSION: No acute fracture or joint effusion of the left knee. Electronically signed by: Arnel Gray M.D. 02/26/2017 9:40 PM Dictated Date/Time: 02/26/2017 9:39 PM Medications Administered Medications (Trade) Dose Ordered Sig/Gisela Route Start Time Stop Time Status Last Admin Dose Admin Acetaminophen/ Hydrocodone Bitart ([place] 5/325 Tab) 1 tab NOW STAT PO 02/26/17 21:08 02/26/17 21:09 DC 02/26/17 21:27 1 TAB Medical Decision Patient was seen and evaluated as above. X-ray was obtained secondary to her presentation with left knee pain. It was pinpoint at the patella. Radiographs are negative. I suspect soft tissue contusion. She was given an Gabriel wrap. She was educated upon management, educated upon worrisome symptoms in which to return, had questions answered prior to discharge, and was discharged home in good condition. In the evaluation and treatment of this patient, the following differential diagnoses were considered: Patellar Fracture, Tibial Plateau Fracture, Distal Femur Fracture, ACL Injury, PCL Injury, Collateral Ligament Injury, Pes Anserine Bursitis, [place] Fracture. Medication list reviewed. She was hypertensive I believe secondary to situation. Impression Primary Impression: Knee pain Departure Information Dispostion Home / Self-Care Condition GOOD Referrals Juan A Hahn M.D. (PCP) Tawanda Diallo M.D. Patient Instructions My [facility] Additional Instructions You have been treated in the Emergency Department for Knee Pain. For pain control, you can use the following [id number] medicines (if >12 yo): - Regular strength (325mg/tab) Tylenol (acetaminophen) 2 tabs every 4-6 hours as needed. Do not exceed 12 tablets in a 24 hour period. Avoid taking more than 3 grams (3000 mg) of Tylenol per day. This includes any other sources of acetaminophen you may take on a regular basis. If this is a recent injury (<24 hrs), ice can be applied to the area of pain for the first 3 days to help decrease pain and inflammation. Ice massages can be performed by freezing water in a paper cup, peeling back the cup to expose the ice and then massaging over the affected area. You have been provided the number for an Orthopaedic Surgeon. You should call this number as soon as possible to establish a follow-up visit from today's Emergency Department visit. Keep the knee brace/gabriel wrap in place until cleared by Orthopedics. Return to the Emergency Department if your current symptoms worsen despite treatment course outlined above.
--- NOTE | 2017-02-26 22:07 | EMERGENCY ROOM VISIT NOTE ---
ED Visit Note First contact with patient: 21:04 I have personally seen and evaluated the patient with the physician graduate assistant athletic trainer. I agree with the diagnostic/management decisions and have personally been involved in these decisions and agree with the diagnosis.
[2017-02-26 22:20] VITALS: BP 146/88; PULSE 71; O2SAT 95
== END 2017-02-26 22:21 | disposition home or self-care (01) ==
LOC: C.EDB 20:57 → C.EDD 22:21
DX: M25.562 Pain in left knee (principal); W22.8XXA Striking against or struck by other objects, initial encounter; Y92.011 Dining room of single-family (private) house as the place of occurrence of the external cause; F41.9 Anxiety disorder, unspecified; J45.909 Unspecified asthma, uncomplicated; E11.9 Type 2 diabetes mellitus without complications; Z85.3 Personal history of malignant neoplasm of breast; E21.3 Hyperparathyroidism, unspecified; I10 Essential (primary) hypertension; Z87.01 Personal history of pneumonia (recurrent); Z80.9 Family history of malignant neoplasm, unspecified; Z83.3 Family history of diabetes mellitus; Z82.49 Family history of ischemic heart disease and other diseases of the circulatory system; Z83.6 Family history of other diseases of the respiratory system; Z79.899 Other long term (current) drug therapy

== ENCOUNTER → 2017-03-13 | Outpatient (CLI) | payer BC ==
--- NOTE | 2017-03-13 15:31 | MAMMOGRAPHY REPORT ---
BILATERAL DIGITAL SCREENING MAMMOGRAM TOMOSYNTHESIS WITH CAD: 03/13/2017 CLINICAL HISTORY: Asymptomatic. Personal history of breast cancer. TECHNIQUE: Breast tomosynthesis in addition to standard 2D mammography was performed. Current study was also evaluated with a Computer Aided Detection (CAD) system. COMPARISON: Comparison is made to exams dated: 03/12/2016 mammogram, 03/09/2015 mammogram, 03/08/2014 mamm ogram, 03/06/2013 mammogram, 06/13/2012 mammogram, and 06/13/2012 ultrasound - [facility] er. BREAST COMPOSITION: The tissue of both breasts is heterogeneously dense, which may obscure small mas ses. FINDINGS: There are stable posttreatment changes in the right breast including expected architectural distortion and surgical clips in the upper outer posterior breast. Stable mild diffuse skin thicken ing of the right breast. An asymmetry in the lateral left breast appears similar dating back to [facility] 02/21/2010, therefore likely benign. Another stable asymmetry is seen in the medial left breast on the CC view. No new suspicious mass, architectural distortion or cluster of microcalcifications is seen. IMPRESSION: ACR BI-RADS CATEGORY 1: NEGATIVE There is no mammographic evidence of malignancy. A 1 year screening mammogram is recommended. The pa tient will receive written notification of the results. Approximately 10% of breast cancers are not detected with mammography. A negative mammographic report should not delay biopsy if a clinically suggestive mass is present. Lida Serrano M.D. ay/:03/13/2017 15:09:53 Form Coverer: Marizol REDMOND(Sigrid)(Kenneth), [facility] letter sent: Normal 1/2 BI-RADS Code: ACR BI-RADS Category 1: Negative
== END | disposition home or self-care (01) ==
LOC: C.MAMM 14:06
PROVIDERS: ATTEND Internal Medicine
DX: Z12.31 Encounter for screening mammogram for malignant neoplasm of breast (principal); Z85.3 Personal history of malignant neoplasm of breast

== ENCOUNTER → 2017-03-14 | Outpatient (CLI) | payer BC | END | disposition home or self-care (01) | LOC: C.LAB1850 15:29 | PROVIDERS: ATTEND Internal Medicine | DX: M81.0 Age-related osteoporosis without current pathological fracture (principal) ==

== ENCOUNTER 2017-04-13 17:12 | Emergency (ER) | payer BC ==
[~2017-04-13] VITALS: Ht 162.6 cm; Wt 60.0 kg
[2017-04-13 17:14] VITALS: Ht 162.6 cm; Wt 60.0 kg
[2017-04-13] MEDS ORDERED: GABAPENTIN 100 MG CAP PO STA (17:35)
[2017-04-13] MEDS ORDERED: SODIUM CHLORIDE 0.9% 1000ML 1,000 ML IV STA (17:35)
[2017-04-13] MEDS ORDERED: ACETAMINOPHEN 500 MG TAB PO STA (17:41)
--- NOTE | 2017-04-13 18:06 | DIAGNOSTIC IMAGING REPORT ---
CHEST ONE VIEW PORTABLE CLINICAL HISTORY: 66 years-old Female presenting with cough, f/c. TECHNIQUE: Portable upright AP view of the chest was obtained. COMPARISON: 03/31/2014. FINDINGS: Atherosclerosis of the aortic arch. Cardiac silhouette normal in size. Lungs and pleural spaces clear. Right axillary and right breast surgical clips. Osseous structures may be osteopenic. Mildly exaggerated thoracic kyphosis suggested. Upper abdomen normal. IMPRESSION: 1. No acute cardiopulmonary disease. Electronically signed by: Rodriguez Shepard M.D. 04/13/2017 6:04 PM Dictated Date/Time: 04/13/2017 6:04 PM
[2017-04-13 18:22] LABS: BASO % 0.5 %; BASO ABS # 0.03 K/uL (0-0.2); EOS % 1.4 %; EOS ABS # 0.09 K/uL (0-0.5); HEMATOCRIT 40.4 % (37-47); HEMOGLOBIN 13.2 g/dL (12.0-16.0); LYMPH % 21.9 %; LYMPH ABS # 1.37 K/uL (1.2-3.4); MEAN CELL VOLUME 86.9 fL (80-100); MEAN CORPUSCULAR HEMOGLOBIN 28.4 pg (25-34); MEAN CORPUSCULAR HGB CONC 32.7 g/dl (32-36); MEAN PLATELET VOLUME 10.4 fL (7.4-10.4); MONO % 10.9 %; MONO ABS # 0.68 K/uL (0.11-0.59); NEUT % 65.3 %; NEUT ABS # 4.08 K/uL (1.4-6.5); PLATELET COUNT 250 K/uL (130-400); RED CELL DISTRIBUTION WIDTH CV 14.7 % (11.5-14.5); RED CELL DISTRIBUTION WIDTH SD 46.2 fL (36.4-46.3); WHITE BLOOD COUNT 6.25 K/uL (4.8-10.8)
[2017-04-13 18:37] LABS: ALBUMIN 4.4 gm/dl (3.4-5.0); ALT/SGPT 18 U/L (12-78); AST/SGOT 16 U/L (15-37); BLOOD UREA NITROGEN 12 mg/dl (7-18); CALCIUM 9.3 mg/dl (8.5-10.1); CARBON DIOXIDE 30 mmol/L (21-32); CREATININE 1.01 mg/dl (0.60-1.20); GLUCOSE 110 mg/dl (70-99); LIPASE 196 U/L (73-393); POTASSIUM 3.6 mmol/L (3.5-5.1); SODIUM 134 mmol/L (136-145)
[2017-04-13 18:42] LABS: ALKALINE PHOSPHATASE 87 U/L (45-117); TOTAL PROTEIN 8.7 gm/dl (6.4-8.2)
[2017-04-13 18:57] LABS: INFLUENZA B ANTIGEN Neg for Influ B (NEG)
--- NOTE | 2017-04-13 19:08 | DIAGNOSTIC IMAGING REPORT ---
VENOUS DOPPLER LWR EXT BILA CLINICAL HISTORY: 66 years-old Female presenting with calf pain, hx cancer. TECHNIQUE: Real-time grayscale and color and spectral Doppler ultrasound imaging of the veins of the bilateral lower extremities was performed. Compression and augmentation were also utilized. COMPARISON: None. FINDINGS: Right: Common femoral vein: Patent. Greater saphenous vein: Patent. Deep femoral vein: Patent. Femoral vein: Patent. Popliteal vein: Patent. Calf veins: Patent. Left: Common femoral vein: Patent. Greater saphenous vein: Patent. Deep femoral vein: Patent. Femoral vein: Patent. Popliteal vein: Patent. Calf veins: Patent. Other: None. IMPRESSION: No evidence of deep venous thrombosis. Electronically signed by: Rodriguez Shepard M.D. 04/13/2017 7:07 PM Dictated Date/Time: 04/13/2017 7:06 PM
[2017-04-13] MEDS ORDERED: FENTANYL CITRATE INJ 50 MCG/1 ML 2 ML VIAL IV STA (19:40)
--- NOTE | 2017-04-13 20:14 | DIAGNOSTIC IMAGING REPORT ---
HEAD WITHOUT CONTRAST (CT) CLINICAL HISTORY: 66 years-old Female presenting with headache, facial pain. TECHNIQUE: Multidetector CT imaging of the head was performed without the use of intravenous contrast. IV contrast: None. A dose lowering technique was used consistent with the principles of ALARA (as low as reasonably achievable). COMPARISON: None. CT DOSE (mGy.cm): The estimated cumulative dose is 601.98 mGy.cm. FINDINGS: Superintendent Stations topogram: Unremarkable. Ventricles and sulci normal in size. Periventricular and subcortical white matter hypoattenuation, nonspecific but likely indicative of chronic small vessel ischemic change. No mass effect or midline shift. No hemorrhage or acute territorial infarct. No extra-axial fluid collection. Paranasal sinuses and mastoid air cells clear. Calvarium intact. IMPRESSION: 1. Chronic small vessel ischemic change. No acute intracranial abnormality. Electronically signed by: Rodriguez Shepard M.D. 04/13/2017 8:12 PM Dictated Date/Time: 04/13/2017 8:10 PM
--- NOTE | 2017-04-13 20:49 | EMERGENCY ROOM VISIT NOTE ---
History Report prepared by Dimitrios: Li Clark Under the Supervision of: Dr. Josselyn Ayala D.O. First contact with patient: 17:16 Chief Complaint: FLU LIKE SX Stated Complaint: FEVER,CHILLS,ACHES,RASH,WEAK History of Present Illness The patient is a 66 year old female who presents to the Emergency Room with complaints of persistent flu symptoms starting 3 days ago. The patient reports body aches, fever, chills, rash on her back, back pain, headache, and sinus pressure. She has tried taking Dayquil, Nyquil, and aspirin to no significant relief. Her temperature was 99. She notes that her body temperature is normally around 97. She currently feels slightly nauseous and weak. She has pain in her legs and calves. She sometimes has the urge to urinate without passing any urine. This started after she started a new medication for her bladder. She also notes that her stools have been harder. She has not noticed any abnormal colors or odors in her urine. She has had some coughing which made her head hurt. She denies any SOB, leg swelling, congestion, rhinorrhea, diarrhea, dark stools, abdominal pain, or chest pain. She has a history of breast CA and sinus surgery. She has noticed that she seems to be aching more where she has had previous injuries. She notes that her son today from brain cancer. Source of History: patient Onset: 3 days ago Position: other (global) Quality: other (flu symptoms) Timing: other (persistent) Associated Symptoms: + fevers, + chills, + headache, + nausea, + back pain, + urinary symptoms, + weakness, + rash, No chest pain, No SOB, No abdominal pain , No melena, No diarrhea Note: Pt reports body aches. Review of Systems See HPI for pertinent positives & negatives. A total of 10 systems reviewed and were otherwise negative. Past Medical & Surgical Medical Problems: (1) Anxiety (2) Asthma (3) Contusion of right elbow (4) Diabetes (5) HX: breast cancer (6) Hyperparathyroidism (7) Hypertension (8) Left buttock pain (9) Lower GI bleed (10) Pneumonia Surgical Problems: (1) H/O: hysterectomy (2) H/O: hysterectomy (3) Hx of section Family History Cancer Diabetes mellitus Heart disease Hypertension Lung disease Seizures Social History Smoking Status: Never Smoker Alcohol Use: none Marital Status: Housing Status: lives with significant other Occupation Status: employed Current/Historical Medications Scheduled Atorvastatin (Lipitor), 40 MG PO HS Calcium Carbonate (Calcium), 1 TAB PO BID Cholecalciferol (D 2000), 2 TABS PO BID Citalopram Hydrobromide (Celexa), 1.5 TABS PO HS Diltiazem Hcl Coated Beads (Diltiazem Cd), 180 MG PO QAM Gabapentin (Neurontin), 2 TABS PO HS Losartan Potassium (Cozaar), 100 MG PO QAM Melatonin (Kp Melatonin), 1 TAB PO HS Metformin Hcl Er (Glucophage Er), 1 TAB PO BID Omeprazole (Prilosec), 40 MG PO QAM Trazodone Hcl (Trazodone), 50 MG PO HS Scheduled PRN Diphenhydramine Hcl (Benadryl Allergy), 25-50 MG PO DAILY PRN for ALLERGIC REACTION Allergies Coded Allergies: Midazolam (Verified Allergy, Severe, CENTRAL NERVOUS REACTION "ACTING OUT ", 04/13/17) KADIE Inhibitors (Unverified Allergy, Unknown, UNKNOWN, 04/13/17) Beta Adrenergic Blockers (Unverified Allergy, Unknown, UNKNOWN, 04/13/17) CI Pigment Blue 63 (Verified Allergy, Unknown, "THROAT CLOSED UP AND TERRIBLE HEADACHE", 04/13/17) Caffeine (Verified Allergy, Unknown, HYPERACTIVITY, 04/13/17) Chocolate (Verified Allergy, Unknown, RASH, 04/13/17) [place] Oil (Verified Allergy, Unknown, HEADACHE, 04/13/17) Fesoterodine (Verified Allergy, Unknown, "THROAT CLOSED UP AND TERRIBLE HEADACHE", 04/13/17) Gentamicin (Unverified Allergy, Unknown, unknown, 04/13/17) Per PCP note Lecithin (Verified Allergy, Unknown, "THROAT CLOSED UP AND TERRIBLE HEADACHE", 04/13/17) Peanut (Verified Allergy, Unknown, ANAPLYLAXIS, 04/13/17) Zolpidem (Verified Allergy, Unknown, UNKNOWN, 04/13/17) Physical Exam Vital Signs Date Time Temp Pulse Resp B/P (MAP) Pulse Ox O2 Delivery O2 Flow Rate FiO2 04/13/17 21:03 37.1 77 18 156/93 98 04/13/17 19:19 77 18 156/93 98 Room Air 04/13/17 17:14 37.1 100 16 118/79 94 Room Air Physical Exam GENERAL: alert, well appearing, well nourished, no distress, non-toxic HEAD: mild left maxillary sinus tenderness to percussion, no other sinus or mastoid tenderness to percussion EYE EXAM: normal conjunctiva, PERRL and EOM's grossly intact OROPHARYNX: no exudate, no erythema, lips, buccal mucosa, and tongue normal and mucous membranes are mildly dry NECK: supple, no nuchal rigidity, no adenopathy, non-tender LUNGS: Clear to auscultation. Normal chest wall mechanics HEART: no murmurs, S1 normal and S2 normal ABDOMEN: abdomen soft, non-tender, normo-active bowel sounds, no masses, no rebound or guarding. BACK: Back is symmetrical on inspection and there is no deformity, 4 x 2 area to the right back in the area of the thoracolumbar junction with erythematous base vesicles noted. No active drainage. Area most consistent with early zoster. No other midline tenderness. No CVA tenderness. SKIN: no bruising. UPPER EXTREMITIES: upper extremities are grossly normal. LOWER EXTREMITIES: No pitting edema. NEURO EXAM: Normal sensorium, cranial nerves II-XII grossly intact, normal speech, no gross weakness of arms, no gross weakness of legs. Medical Decision & Procedures ER Provider Diagnostic Interpretation: Xray results have been interpreted by the radiologist and by me. Radiology results have been interpreted by the radiologist and reviewed by me. CHEST ONE VIEW PORTABLE CLINICAL HISTORY: 66 years-old Female presenting with cough, f/c. TECHNIQUE: Portable upright AP view of the chest was obtained. COMPARISON: 03/31/2014. FINDINGS: Atherosclerosis of the aortic arch. Cardiac silhouette normal in size. Lungs and pleural spaces clear. Right axillary and right breast surgical clips. Osseous structures may be osteopenic. Mildly exaggerated thoracic kyphosis suggested. Upper abdomen normal. IMPRESSION: 1. No acute cardiopulmonary disease. Electronically signed by: Rodriguez Shepard M.D. 04/13/2017 6:04 PM Dictated Date/Time: 04/13/2017 6:04 PM HEAD WITHOUT CONTRAST (CT) CLINICAL HISTORY: 66 years-old Female presenting with headache, facial pain. TECHNIQUE: Multidetector CT imaging of the head was performed without the use of intravenous contrast. IV contrast: None. A dose lowering technique was used consistent with the principles of ALARA (as low as reasonably achievable). COMPARISON: None. CT DOSE (mGy.cm): The estimated cumulative dose is 601.98 mGy.cm. 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 Ventricles and sulci normal in size. Periventricular and subcortical white matter hypoattenuation, nonspecific but likely indicative of chronic small vessel ischemic change. No mass effect or midline shift. No hemorrhage or acute territorial infarct. No extra-axial fluid collection. Paranasal sinuses and mastoid air cells clear. Calvarium intact. IMPRESSION: 1. Chronic small vessel ischemic change. No acute intracranial abnormality. Electronically signed by: Rodriguez Shepard M.D. 04/13/2017 8:12 PM Dictated Date/Time: 04/13/2017 8:10 PM VENOUS DOPPLER LWR [facility] RIBEIRO CLINICAL HISTORY: 66 years-old Female presenting with calf pain, hx cancer. TECHNIQUE: Real-time grayscale and color and spectral Doppler ultrasound imaging of the veins of the bilateral lower extremities was performed. Compression and augmentation were also utilized. COMPARISON: None. FINDINGS: Right: Common femoral vein: Patent. Greater saphenous vein: Patent. Deep femoral vein: Patent. Femoral vein: Patent. Popliteal vein: Patent. Calf veins: Patent. Left: Common femoral vein: Patent. Greater saphenous vein: Patent. Deep femoral vein: Patent. Femoral vein: Patent. Popliteal vein: Patent. Calf veins: Patent. Other: None. IMPRESSION: No evidence of deep venous thrombosis. Electronically signed by: Rodriguez Shepard M.D. 04/13/2017 7:07 PM Dictated Date/Time: 04/13/2017 7:06 PM Laboratory Results 04/13/17 18:05 Red Blood Count 4.65, Mean Corpuscular Volume 86.9, Mean Corpuscular Hemoglobin 28.4, Mean Corpuscular Hemoglobin Concent 32.7, Mean Platelet Volume 10.4, Neutrophils (%) (Auto) 65.3, Lymphocytes (%) (Auto) 21.9, Monocytes (%) (Auto) 10.9, Eosinophils (%) (Auto) 1.4, Basophils (%) (Auto) 0.5, Neutrophils # (Auto ) 4.08, Lymphocytes # (Auto) 1.37, Monocytes # (Auto) 0.68, Eosinophils # (Auto ) 0.09, Basophils # (Auto) 0.03 04/13/17 18:05 Test 04/13/17 18:00 04/13/17 18:05 04/13/17 18:09 04/13/17 20:08 Influenza Type A Antigen Neg for Influ A (NEG) Influenza Type B Antigen Neg for Influ B (NEG) White Blood Count 6.25 K/uL (4.8-10.8) Red Blood Count 4.65 M/uL (4.2-5.4) Hemoglobin 13.2 g/dL (12.0-16.0) Hematocrit 40.4 % (37-47) Mean Corpuscular Volume 86.9 fL (80-100) Mean Corpuscular Hemoglobin 28.4 pg (25-34) Mean Corpuscular Hemoglobin Concent 32.7 g/dl (32-36) Platelet Count 250 K/uL (130-400) Mean Platelet Volume 10.4 fL (7.4-10.4) Neutrophils (%) (Auto) 65.3 % Lymphocytes (%) (Auto) 21.9 % Monocytes (%) (Auto) 10.9 % Eosinophils (%) (Auto) 1.4 % Basophils (%) (Auto) 0.5 % Neutrophils # (Auto) 4.08 K/uL (1.4-6.5) Lymphocytes # (Auto) 1.37 K/uL (1.2-3.4) Monocytes # (Auto) 0.68 K/uL (0.11-0.59) Eosinophils # (Auto) 0.09 K/uL (0-0.5) Basophils # (Auto) 0.03 K/uL (0-0.2) RDW Standard Deviation 46.2 fL (36.4-46.3) RDW Coefficient of Variation 14.7 % (11.5-14.5) Immature Granulocyte % (Auto) 0.0 % Immature Granulocyte # (Auto) 0.00 K/uL (0.00-0.02) Anion Gap 5.0 mmol/L (3-11) Est Creatinine Clear Calc Drug Dose 46.7 ml/min Estimated GFR () 66.7 Estimated GFR (Non- 57.6 BUN/Creatinine Ratio 11.6 (10-20) Calcium Level 9.3 mg/dl (8.5-10.1) Total Bilirubin 0.6 mg/dl (0.2-1) Aspartate Amino Transf (AST/SGOT) 16 U/L (15-37) Alanine Aminotransferase (ALT/SGPT) 18 U/L (12-78) Alkaline Phosphatase 87 U/L (45-117) Troponin I < 0.015 ng/ml (0-0.045) Total Protein 8.7 gm/dl (6.4-8.2) Albumin 4.4 gm/dl (3.4-5.0) Globulin 4.3 gm/dl (2.5-4.0) Albumin/Globulin Ratio 1.0 (0.9-2) Lipase 196 U/L (73-393) Bedside Lactic Acid Venous 1.21 mmol/L (0.90-1.70) Urine Color YELLOW Urine Appearance CLEAR (CLEAR) Urine pH 5.5 (4.5-7.5) Urine Specific Stewart 1.016 (1.000-1.030) Urine Protein NEG (NEG) Urine Glucose (UA) NEG (NEG) Urine Ketones NEG (NEG) Urine Occult Blood NEG (NEG) Urine Nitrite NEG (NEG) Urine Bilirubin NEG (NEG) Urine Urobilinogen NEG (NEG) Urine Leukocyte Esterase SMALL (NEG) Urine WBC (Auto) 1-5 /hpf (0-5) Urine RBC (Auto) 0-4 /hpf (0-4) Urine Hyaline Casts (Auto) 1-5 /lpf (0-5) Urine Epithelial Cells (Auto) 20-30 /lpf (0-5) Urine Bacteria (Auto) NEG (NEG) Laboratory results per my review. Medications Administered Medications (Trade) Dose Ordered Sig/Gisela Route Start Time Stop Time Status Last Admin Dose Admin Sodium Chloride 1,000 ml @ 999 mls/hr Q1H1M STAT IV 04/13/17 17:35 04/13/17 18:35 DC 04/13/17 18:07 999 MLS/HR Gabapentin (Neurontin Cap) 100 mg NOW STAT PO 04/13/17 17:35 04/13/17 17:37 DC 04/13/17 18:06 100 MG Acetaminophen (Tylenol Tab) 1,000 mg NOW STAT PO 04/13/17 17:41 04/13/17 17:42 DC 04/13/17 18:05 1,000 MG Fentanyl Citrate (Fentanyl Inj) 50 mcg NOW STAT IV 04/13/17 19:40 04/13/17 19:42 DC 04/13/17 19:51 50 MCG ECG Indication: weakness Rate (beats per minute): 75 Rhythm: sinus rhythm Findings: Q waves (lead 3), no ectopy, other (normal axis, normal intervals, no other acute ischemia) Change: EKG: Patient's electrocardiogram per my interpretation. ED Course 1721: The patient was evaluated in room A2. A complete history and physical exam was performed. 1734: Gabapentin 100 mg PO, Sodium Chloride 1000 ml @ 999 mls/hr IV. 1740: Acetaminophen 1000 mg PO. 1939: Fentanyl Inj 50 mcg IV. 2037: Upon reevaluation, the patient is feeling better. I discussed the findings and the treatment plan with the patient. She verbalizes agreement and understanding. She was discharged home. Medical Decision Differential diagnosis: Etiologies such as viral syndrome, otitis, pharyngitis, pneumonia, influenza, meningitis, urinary tract infection, sepsis, bacteremia, as well as others were entertained. Patient presented with several days of flulike illness, however was negative for influenza, no other additional focal infection found. Patient improved her following medications. Imaging otherwise reassuring, labs otherwise reassuring.No evidence for bacteremia/sepsis, no evidence for pneumonia. No focal GI symptoms. Did not feel patient warranted additional imaging of her abdomen and pelvis at this time. Patient tolerating p.o. here, vital signs stable throughout, ambulating with a steady gait. Discussed with patient possible component of grief reaction exacerbating her symptoms. Patient with no focal neuro deficits here, neck soft and nontender with FROM, did not feel patient warranted lumbar puncture as a very low suspicion for meningitis/ encephalitis. Discussed with patient follow-up with family doctor, symptoms to watch and return for, she verbalized understanding and was agreeable with plan. Medication Reconcilliation Current Medication List: was personally reviewed by me Blood Pressure Screening Patient's blood pressure: Normal blood pressure Blood pressure disposition: Did not require urgent referral Impression Primary Impression: Influenza-like symptoms Scribe Attestation The scribe's documentation has been prepared under my direction and personally reviewed by me in its entirety. I confirm that the note above accurately reflects all work, treatment, procedures, and medical decision making performed by me. Departure Information Dispostion Home / Self-Care Referrals Juan A Hahn M.D. (PCP) Patient Instructions My [facility] Additional Instructions Please continue your regular medications as prescribed. Please call and follow up with your family doctor as a precaution. You may use Tylenol and ibuprofen as needed for pain or fevers. If you have any worsening pain, persistent fevers , develop worsening cough or trouble breathing, vomiting, diarrhea, worsening headaches, vision changes, dizziness, numbness/tingling, passing out, or any other new concerns, please return the emergency room. Please note that the rash associated with your shingles may last for up to 2 weeks. You may have persistent pain even after the rash goes away. You are still considered contagious until the rash is crusted over.
[2017-04-13 21:03] VITALS: BP 156/93; PULSE 77; TEMP 37.1; O2SAT 98
== END 2017-04-13 21:08 | disposition home or self-care (01) ==
LOC: C.EDB 17:14 → C.EDA 21:08
DX: M79.1 Myalgia (principal); R50.9 Fever, unspecified; M54.9 Dorsalgia, unspecified; R51 Headache; R21 Rash and other nonspecific skin eruption; E11.9 Type 2 diabetes mellitus without complications; F41.9 Anxiety disorder, unspecified; J45.909 Unspecified asthma, uncomplicated; I10 Essential (primary) hypertension; E21.3 Hyperparathyroidism, unspecified; Z90.710 Acquired absence of both cervix and uterus; Z83.3 Family history of diabetes mellitus; Z82.49 Family history of ischemic heart disease and other diseases of the circulatory system; Z82.0 Family history of epilepsy and other diseases of the nervous system; Z80.8 Family history of malignant neoplasm of other organs or systems; Z79.84 Long term (current) use of oral hypoglycemic drugs

== ENCOUNTER 2017-09-27 10:58 | Emergency (ER) | payer BC ==
[~2017-09-27] VITALS: Ht 162.6 cm; Wt 62.6 kg
[~2017-09-27 10:58] MED LIST changes: -FEXO1TAB49 PO; +GABA-1693 PO; -GABA1CAP PO
[2017-09-27 11:10] VITALS: TEMP 36.5; Ht 162.6 cm; Wt 62.6 kg
[2017-09-27] MEDS ORDERED: SODIUM CHLORIDE 0.9% 500ML 500 ML IV STA (12:10)
[2017-09-27] MEDS ORDERED: SODIUM CHLORIDE 0.9% 1000ML 1,000 ML IV STA (12:10)
[2017-09-27 12:26] LABS: BASO % 0.2 %; BASO ABS # 0.02 K/uL (0-0.2); EOS % 1.1 %; HEMATOCRIT 38.5 % (37-47); HEMOGLOBIN 12.4 g/dL (12.0-16.0); IG# 0.02 K/uL (0.00-0.02); LYMPH % 14.1 %; LYMPH ABS # 1.25 K/uL (1.2-3.4); MEAN CELL VOLUME 88.1 fL (80-100); MEAN CORPUSCULAR HEMOGLOBIN 28.4 pg (25-34); MEAN CORPUSCULAR HGB CONC 32.2 g/dl (32-36); MEAN PLATELET VOLUME 10.7 fL (7.4-10.4); MONO ABS # 0.44 K/uL (0.11-0.59); NEUT % 79.4 %; NEUT ABS # 7.03 K/uL (1.4-6.5); PLATELET COUNT 272 K/uL (130-400); RED CELL DISTRIBUTION WIDTH CV 14.5 % (11.5-14.5); RED CELL DISTRIBUTION WIDTH SD 46.9 fL (36.4-46.3); WHITE BLOOD COUNT 8.86 K/uL (4.8-10.8)
[2017-09-27 12:38] LABS: ALKALINE PHOSPHATASE 81 U/L (45-117); ALT/SGPT 18 U/L (12-78); AST/SGOT 17 U/L (15-37); BLOOD UREA NITROGEN 17 mg/dl (7-18); CALCIUM 9.1 mg/dl (8.5-10.1); CARBON DIOXIDE 29 mmol/L (21-32); CREATININE 1.13 mg/dl (0.60-1.20); GLUCOSE 108 mg/dl (70-99); LIPASE 236 U/L (73-393); POTASSIUM 4.3 mmol/L (3.5-5.1); SODIUM 137 mmol/L (136-145); TOTAL PROTEIN 7.6 gm/dl (6.4-8.2)
--- NOTE | 2017-09-27 12:46 | DIAGNOSTIC IMAGING REPORT ---
ABDOMEN 2VIEW W/PA CHEST RTN CLINICAL HISTORY: vomiting COMPARISON STUDY: Chest x-ray dated 04/13/2017 FINDINGS: The erect chest reveals no free intraperitoneal air. There is no focal pulmonary consolidation. There are surgical clips project over the right breast and right axillary region. Erect and supine views the abdomen reveal no abnormally dilated loops of large or small bowel. There are no transition zones to indicate bowel obstruction. IMPRESSION: No evidence of bowel obstruction. No evidence of free air. Electronically signed by: Mahin Valencia M.D. 09/27/2017 12:45 PM Dictated Date/Time: 09/27/2017 12:44 PM
--- NOTE | 2017-09-27 13:15 | EMERGENCY ROOM VISIT NOTE ---
History Report prepared by Dimitrios: Elodia Dunlap Under the Supervision of: Dr. Stacey Lama M.D. First contact with patient: 11:32 Chief Complaint: DIZZY Stated Complaint: WEAKN/DIZZY/NAUSEATED Nursing Triage Summary: pt. was at work this am, felt dizzy, nause, V/D, ambulance called, pt. states she took her morning and evening medication at 0700 History of Present Illness The patient is a 67 year old female who presents to the Emergency Room with complaints of constant dizziness and nausea beginning this morning. She states she inadvertently took both her morning and night medications about 4.5 hours ago, but did not double up on any of them. The patient reports she missed the night medications last night as she fell asleep following taking NyQuil for cold symptoms. 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 Shirley, who recommended she be seen in the ED. The patient reports she is nauseous, vomited once, and is experiencing diarrhea. She denies any urinary symptoms. Source of History: patient Onset: this morning Position: head, abdomen Quality: other (dizziness, nausea) Timing: constant Associated Symptoms: + vomiting, + diarrhea, No urinary symptoms Review of Systems See HPI for pertinent positives & negatives. A total of 10 systems reviewed and were otherwise negative. Past Medical & Surgical Medical Problems: (1) Anxiety (2) Asthma (3) Contusion of right elbow (4) Diabetes (5) HX: breast cancer (6) Hyperparathyroidism (7) Hypertension (8) Left buttock pain (9) Lower GI bleed (10) Pneumonia Surgical Problems: (1) H/O: hysterectomy (2) H/O: hysterectomy (3) Hx of section Family History Cancer Diabetes mellitus Heart disease Hypertension Lung disease Seizures Social History Smoking Status: Never Smoker Alcohol Use: none Marital Status: Housing Status: lives with significant other Occupation Status: employed Current/Historical Medications Scheduled Aflibercept (Eylea), 1 DOSE INJ Q3MO Atorvastatin (Lipitor), 40 MG PO HS Calcium Carbonate (Calcium), 1 TAB PO BID Cholecalciferol (D 1999), 2 TABS PO BID Citalopram Hydrobromide (Celexa), 10 MG PO HS Diltiazem Hcl Coated Beads (Diltiazem Cd), 180 MG PO QAM Gabapentin (Neurontin), 2 TABS PO HS Losartan Potassium (Cozaar), 100 MG PO QAM Melatonin (Kp Melatonin), 1 TAB PO HS Metformin Hcl Er (Glucophage Er), 1 TAB PO BID Mirabegron (Myrbetriq Er), 25 MG PO DAILY Mirabegron (Myrbetriq Er), 50 MG PO DAILY Omeprazole (Prilosec), 40 MG PO QAM Sitagliptin Phosphate (Januvia), 100 MG PO DAILY Trazodone Hcl (Trazodone), 50 MG PO HS Scheduled PRN Diphenhydramine Hcl (Benadryl Allergy), 25-50 MG PO DAILY PRN for ALLERGIC REACTION Lorazepam (Ativan), 0.5 MG PO Q8 PRN for Anxiety Allergies Coded Allergies: Midazolam (Verified Allergy, Severe, CENTRAL NERVOUS REACTION "ACTING OUT ", 09/27/17) KADIE Inhibitors (Unverified Allergy, Unknown, UNKNOWN, 09/27/17) Beta Adrenergic Blockers (Unverified Allergy, Unknown, UNKNOWN, 09/27/17) CI Pigment Blue 63 (Verified Allergy, Unknown, "THROAT CLOSED UP AND TERRIBLE HEADACHE", 09/27/17) Caffeine (Verified Allergy, Unknown, HYPERACTIVITY, 09/27/17) Chocolate (Verified Allergy, Unknown, RASH, 09/27/17) [place] Oil (Verified Allergy, Unknown, HEADACHE, 09/27/17) Fesoterodine (Verified Allergy, Unknown, "THROAT CLOSED UP AND TERRIBLE HEADACHE", 09/27/17) Gentamicin (Unverified Allergy, Unknown, unknown, 09/27/17) Per PCP note Lecithin (Verified Allergy, Unknown, "THROAT CLOSED UP AND TERRIBLE HEADACHE", 09/27/17) Peanut (Verified Allergy, Unknown, ANAPLYLAXIS, 09/27/17) Zolpidem (Verified Allergy, Unknown, UNKNOWN, 09/27/17) Physical Exam Vital Signs Date Time Temp Pulse Resp B/P (MAP) Pulse Ox O2 Delivery O2 Flow Rate FiO2 09/27/17 14:35 76 124/76 94 09/27/17 13:15 72 16 128/60 96 Room Air 09/27/17 12:16 13 121/78 94 Room Air 09/27/17 12:10 62 09/27/17 11:22 Room Air 09/27/17 11:10 36.5 67 18 151/97 93 Room Air Physical Exam Vital signs reviewed. General: Well-appearing female, in no significant distress. HEENT: No scleral icterus, PERRLA, neck supple. Atraumatic. Cardiovascular: Regular rate and rhythm, no extra sounds. Pulmonary: Clear to auscultation bilaterally, normal work of breathing. Abdomen: Soft, nontender, nondistended, positive bowel sounds. Musculoskeletal: Atraumatic, no peripheral edema. Neurologic: Patient awake alert and oriented x 3, full strength in all 4 extremities. Cranial nerves 2 through 12 grossly intact. Skin: Warm, dry, no rash Medical Decision & Procedures ER Provider Diagnostic Interpretation: Radiology results as stated below per my review and radiologist interpretation: ABDOMEN 2VIEW W/PA CHEST RTN CLINICAL HISTORY: vomiting COMPARISON STUDY: Chest x-ray dated 04/13/2017 FINDINGS: The erect chest reveals no free intraperitoneal air. There is no focal pulmonary consolidation. There are surgical clips project over the right breast and right axillary region. Erect and supine views the abdomen reveal no abnormally dilated loops of large or small bowel. There are no transition zones to indicate bowel obstruction. IMPRESSION: No evidence of bowel obstruction. No evidence of free air. Electronically signed by: Mahin Valencia M.D. 09/27/2017 12:45 PM Dictated Date/Time: 09/27/2017 12:44 PM Laboratory Results 09/27/17 11:25 Red Blood Count 4.37, Mean Corpuscular Volume 88.1, Mean Corpuscular Hemoglobin 28.4, Mean Corpuscular Hemoglobin Concent 32.2, Mean Platelet Volume 10.7, Neutrophils (%) (Auto) 79.4, Lymphocytes (%) (Auto) 14.1, Monocytes (%) (Auto) 5.0, Eosinophils (%) (Auto) 1.1, Basophils (%) (Auto) 0.2, Neutrophils # (Auto) 7.03, Lymphocytes # (Auto) 1.25, Monocytes # (Auto) 0.44, Eosinophils # (Auto) 0.10, Basophils # (Auto) 0.02 09/27/17 11:25 Test 09/27/17 11:25 09/27/17 12:50 White Blood Count 8.86 K/uL (4.8-10.8) Red Blood Count 4.37 M/uL (4.2-5.4) Hemoglobin 12.4 g/dL (12.0-16.0) Hematocrit 38.5 % (37-47) Mean Corpuscular Volume 88.1 fL (80-100) Mean Corpuscular Hemoglobin 28.4 pg (25-34) Mean Corpuscular Hemoglobin Concent 32.2 g/dl (32-36) Platelet Count 272 K/uL (130-400) Mean Platelet Volume 10.7 fL (7.4-10.4) Neutrophils (%) (Auto) 79.4 % Lymphocytes (%) (Auto) 14.1 % Monocytes (%) (Auto) 5.0 % Eosinophils (%) (Auto) 1.1 % Basophils (%) (Auto) 0.2 % Neutrophils # (Auto) 7.03 K/uL (1.4-6.5) Lymphocytes # (Auto) 1.25 K/uL (1.2-3.4) Monocytes # (Auto) 0.44 K/uL (0.11-0.59) Eosinophils # (Auto) 0.10 K/uL (0-0.5) Basophils # (Auto) 0.02 K/uL (0-0.2) RDW Standard Deviation 46.9 fL (36.4-46.3) RDW Coefficient of Variation 14.5 % (11.5-14.5) Immature Granulocyte % (Auto) 0.2 % Immature Granulocyte # (Auto) 0.02 K/uL (0.00-0.02) Anion Gap 6.0 mmol/L (3-11) Est Creatinine Clear Calc Drug Dose 41.2 ml/min Estimated GFR () 57.8 Estimated GFR (Non- 49.9 BUN/Creatinine Ratio 15.0 (10-20) Calcium Level 9.1 mg/dl (8.5-10.1) Magnesium Level 2.3 mg/dl (1.8-2.4) Total Bilirubin 0.6 mg/dl (0.2-1) Direct Bilirubin < 0.1 mg/dl (0-0.2) Aspartate Amino Transf (AST/SGOT) 17 U/L (15-37) Alanine Aminotransferase (ALT/SGPT) 18 U/L (12-78) Alkaline Phosphatase 81 U/L (45-117) Total Protein 7.6 gm/dl (6.4-8.2) Albumin 4.0 gm/dl (3.4-5.0) Lipase 236 U/L (73-393) Urine Color YELLOW Urine Appearance CLEAR (CLEAR) Urine pH 7.5 (4.5-7.5) Urine Specific [place] 1.011 (1.000-1.030) Urine Protein NEG (NEG) Urine Glucose (UA) NEG (NEG) Urine Ketones NEG (NEG) Urine Occult Blood NEG (NEG) Urine Nitrite NEG (NEG) Urine Bilirubin NEG (NEG) Urine Urobilinogen NEG (NEG) Urine Leukocyte Esterase TRACE (NEG) Urine WBC (Auto) 1-5 /hpf (0-5) Urine RBC (Auto) 0-4 /hpf (0-4) Urine Hyaline Casts (Auto) 1-5 /lpf (0-5) Urine Epithelial Cells (Auto) >30 /lpf (0-5) Urine Bacteria (Auto) 1+ (NEG) Urine Crystals CALCIUM OXALATE (NONE Laboratory results per my review. 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 The patient was evaluated in room C3. A complete history and physical examination was performed. 1355: Upon reevaluation, the patient appeared to have improvement of her symptoms. I discussed findings with her. She verbalized agreement of the treatment plan. The patient was discharged home. Medical Decision Differential diagnosis: Etiologies such as gastroenteritis, food borne illness, infections, appendicitis , diverticulitis, inflammatory bowel disease, obstruction, GI bleed, biliary pathology, accidental inappropriate medication administration, as well as others were entertained. This patient was evaluated and appeared to be in no significant distress. Physical examination is fairly unrevealing. Patient was hydrated with normal saline solution. She was offered Zofran, but stated she is no longer nauseated. After review of the patient's records, it does not appear that she would have doubled any of her medications. It does seem that she would have taken her melatonin and trazodone this morning which may have contributed to her dizziness. Patient was feeling improved after IV hydration. She was reassured regarding the findings. Patient will follow up with her primary care physician this week for reevaluation and return to the ED for worsening of symptoms or any medical concerns. Medication Reconcilliation Current Medication List: was personally reviewed by me Blood Pressure Screening Patient's blood pressure: Normal blood pressure Blood pressure disposition: Did not require urgent referral Impression Primary Impression: Nausea & vomiting Additional Impressions: Dizziness Accidental medication error Scribe Attestation The scribe's documentation has been prepared under my direction and personally reviewed by me in its entirety. I confirm that the note above accurately reflects all work, treatment, procedures, and medical decision making performed by me. Departure Information Dispostion Home / Self-Care Referrals Juan A Hahn M.D. (PCP) Forms HOME CARE DOCUMENTATION FORM, IMPORTANT VISIT INFORMATION Patient Instructions My [facility] Additional Instructions Diagnosis: Dizzy, nausea vomiting, accidental medication administration Please continue to take her medications as prescribed. Drink plenty of clear fluids. Eat on a regular schedule, small and frequent meals. Follow-up with your PCP this week for reevaluation. Return to the ED for worsening of symptoms or any medical concerns. Problem Qualifiers
[2017-09-27] MEDS ORDERED: MIRA100T PO (14:18)
[2017-09-27] MEDS ORDERED: AFLI2INJ INJ (14:18)
[2017-09-27] MEDS ORDERED: LORA-741 PO (14:18)
[2017-09-27] MEDS ORDERED: SITA100T3 PO (14:18)
[2017-09-27] MEDS ORDERED: MIRA1TAB3 PO (14:18)
[2017-09-27 14:35] VITALS: BP 124/76; PULSE 76; O2SAT 94
== END 2017-09-27 14:35 | disposition home or self-care (01) ==
LOC: EDBD 10:58 → C.EDC 11:06
DX: R11.2 Nausea with vomiting, unspecified (principal); R42 Dizziness and giddiness; T50.901A Poisoning by unspecified drugs, medicaments and biological substances, accidental (unintentional), initial encounter; R19.7 Diarrhea, unspecified; F17.200 Nicotine dependence, unspecified, uncomplicated; I10 Essential (primary) hypertension; Z79.84 Long term (current) use of oral hypoglycemic drugs; Z79.899 Other long term (current) drug therapy; Z88.8 Allergy status to other drugs, medicaments and biological substances; Z91.010 Allergy to peanuts; Z91.018 Allergy to other foods

== ENCOUNTER → 2017-10-14 | Outpatient (CLI) | payer BC ==
[~2017-10-14] MED LIST changes: +AFLI2INJ INJ; +LORA-741 PO; +MIRA100T PO; +MIRA1TAB3 PO; +SITA100T3 PO
[2017-10-14 17:45] LABS: ALKALINE PHOSPHATASE 86 U/L (45-117); ALT/SGPT 22 U/L (12-78); AST/SGOT 18 U/L (15-37); BLOOD UREA NITROGEN 15 mg/dl (7-18); CALCIUM 8.6 mg/dl (8.5-10.1); CARBON DIOXIDE 26 mmol/L (21-32); CREATININE 0.86 mg/dl (0.60-1.20); GLUCOSE 119 mg/dl (70-99); POTASSIUM 4.2 mmol/L (3.5-5.1); SODIUM 136 mmol/L (136-145); TOTAL PROTEIN 7.9 gm/dl (6.4-8.2)
[2017-10-14 18:20] LABS: BASO % 0.5 %; BASO ABS # 0.03 K/uL (0-0.2); EOS % 2.1 %; EOS ABS # 0.13 K/uL (0-0.5); HEMATOCRIT 38.3 % (37-47); HEMOGLOBIN 12.3 g/dL (12.0-16.0); IG# 0.01 K/uL (0.00-0.02); LYMPH % 23.9 %; LYMPH ABS # 1.48 K/uL (1.2-3.4); MEAN CELL VOLUME 87.8 fL (80-100); MEAN CORPUSCULAR HEMOGLOBIN 28.2 pg (25-34); MEAN CORPUSCULAR HGB CONC 32.1 g/dl (32-36); MONO % 5.5 %; MONO ABS # 0.34 K/uL (0.11-0.59); NEUT % 67.8 %; PLATELET COUNT 274 K/uL (130-400); RED CELL DISTRIBUTION WIDTH CV 14.7 % (11.5-14.5); RED CELL DISTRIBUTION WIDTH SD 47.4 fL (36.4-46.3); WHITE BLOOD COUNT 6.19 K/uL (4.8-10.8)
[2017-10-15 05:46] LABS: HEMOGLOBIN A1C 6.9 % (4.5-5.6)
== END | disposition home or self-care (01) ==
LOC: C.LABBFT 13:09
PROVIDERS: ATTEND Internal Medicine
DX: E11.49 Type 2 diabetes mellitus with other diabetic neurological complication (principal)

== ENCOUNTER → 2017-10-25 | Outpatient (CLI) | payer BC | END | disposition home or self-care (01) | LOC: C.LABBFT 09:07 | PROVIDERS: ATTEND Physician Assistant Medical | DX: E78.5 Hyperlipidemia, unspecified (principal) ==

== ENCOUNTER 2023-10-25 05:27 | Inpatient (IN) ==
[2023-10-25 06:01] LABS: iSTAT Creatinine 0.8 mg/dl (0.6-1.3); iSTAT Hemoglobin 9.9 g/dl (12.0-16.0); iSTAT Ionized Calcium 1.2 mmol/l (1.12-1.32); iSTAT Potassium 3.9 mmol/L (3.3-5.0)
[2023-10-25 06:09] LABS: Basophils # (auto) 0.04 K/uL (0.00-0.20); Basophils % (auto) 0.3 %; Eosinophils % (auto) 0.8 %; Hematocrit (blood only) 31.2 % (37.0-47.0); Hemoglobin 10.1 g/dl (12.0-16.0); Immature Granulocytes # (auto) 0.09 K/uL (0.01-0.20); Immature Granulocytes % (auto) 0.7 %; Lymphocytes # (auto) 2.02 K/uL (1.20-3.40); Lymphocytes % (auto) 15.5 %; Mean Corpuscular Hemoglobin 28.9 pg (25.0-34.0); Mean Corpuscular Hgb Conc 32.4 g/dL (32.0-36.0); Mean Corpuscular Volume 89.1 fL (80.0-100.0); Mean Platelet Volume 10.8 fL (9.4-12.4); Monocytes # (auto) 0.94 K/uL (0.11-0.59); Monocytes % (auto) 7.2 %; Neutrophils # (auto) 9.88 K/uL (1.40-6.50); Neutrophils % (auto) 75.5 %; Platelet Count 260 K/uL (130-400); RDW Coefficient of Variation 14.6 % (11.5-14.5); White Blood Count 13.07 K/ul (4.8-10.8)
[2023-10-25 06:27] LABS: Albumin Level 3.9 gm/dl (3.4-5.0); Bilirubin,Total 0.3 mg/dl (0.2-1.0); Calcium 8.9 mg/dl (8.6-10.3); Potassium 3.9 mmol/L (3.5-5.1)
[2023-10-25] MEDS: SODIUM CHLORIDE 0.9% 1,000 ML IV SCH ×2 (06:27→16:01)
[2023-10-25 06:33] LABS: Albumin Globulin Ratio 1.4 (0.9-2); BUN Creatinine Ratio 37.3 (10-20); Creatinine Clr Calc Pharmacy 56.8 ml/min; Est GFR (Non-African American) 78.5 ml/min; Globulin 2.7 gm/dl (2.5-4.0); Total Protein 6.6 gm/dl (6.0-8.3)
--- NOTE | 2023-10-25 06:51 | Emergency Department Note ---
Impression & Plan Acute lower GI bleeding, Anemia, Diverticulosis ED Provider Note NAME: DEE SHAW AGE: 73 SEX: F : 1950 ARRIVES VIA: Ambulance INFORMANT: Patient, ED PROVIDER(S): Jesus Douglass DO CHIEF COMPLAINT: Lower GI bleeding HPI: The patient is a 73-year-old female who presented to the emergency department for an evaluation of lower GI bleeding. The patient has a history of diverticular bleeds in the past. She started noticing bleeding over the last couple days which worsened especially over the last 24 hours. She is been passing clots. The patient denies having any chest pain or difficulty breathing. She has had no fevers. She called 911 because of the recurrence of bleeding this morning. ROS: See above HPI for pertinent positives & negatives. A total of 10 systems reviewed and were otherwise negative. PAST MEDICAL HISTORY: See Below PAST SURGICAL HISTORY: See Below FAMILY HISTORY: See Below SOCIAL HISTORY: See Below HOME MEDICATIONS: See Below ALLERGIES: See Below VITALS: See Below PHYSICAL EXAMINATION: GENERAL: Patient is awake alert in no acute distress patient is resting comfortably and showing no signs of anxiety EYES: The conjunctivae are clear. The pupils are round and reactive. EARS, NOSE, MOUTH AND THROAT: The nose is without any evidence of any deformity. NECK: The neck is nontender and supple. RESPIRATORY: Normal respiratory effort is noted there is no evidence of wheezing rhonchi or rales CARDIOVASCULAR: Regular rate and rhythm noted there no murmurs rubs or gallops normal S1 normal S2. GASTROINTESTINAL: The abdomen is soft and mildly distended. There is left lower quadrant tenderness to palpation but no guarding or rigidity. Rectal exam revealed gross blood. MUSCULOSKELETAL/EXTREMITIES: There is no evidence of gross deformity full range of motion is noted in the hips and shoulders. SKIN: There is no obvious evidence of any rash. There are no petechiae, pallor or cyanosis noted. NEUROLOGIC: Patient is awake alert and oriented x3 MEDICAL DECISION MAKING: The patient is a 73-year-old female who presented to the emergency department for lower GI bleeding. The patient started having bleeding over the last couple days which worsened over the last 24 hours. She is passing clots. Rectal exam did reveal gross blood per rectum. The patient was noted to have a hemoglobin that had dropped compared to previous. I discussed patient's laboratory and radiographic studies with her. I discussed her condition with the on-call [facility] hospitalist. They have agreed to evaluate the patient in the emergency department for further management and disposition. Triage Nursing notes reviewed. Prior medical records reviewed Vital Signs: reviewed and remarkable for no significant abnormalities Differential diagnosis: Diverticulosis, AVM, coagulopathy, colitis, inflammatory bowel disease, malignancy, Charlotte-Che tear, esophagitis, peptic ulcer disease, variceal bleed, gastritis, epistaxis, fissure, hemorrhoids, as well as other pathologies. ER treatment provided: See below Diagnostics interpreted by me: ECG: EKG was obtained in the emergency department. My interpretation is normal sinus rhythm at 62 bpm. There is no ectopy. There is no acute ST segment abnormalities noted. This was compared to a tracing from March 18, 2022. No changes were noted. Cardiac Monitoring: An order was placed for continuous cardiac monitoring. The monitor shows a rate of 68 bpm with sinus rhythm. Laboratory studies: As stated above and show below. Imaging studies: See below. Radiographic imaging was reviewed by myself Consultation(s): I discussed this case with Dr. Castro who is on-call for the [facility] hospitalist group. Past Med/Surg History Problem List (Updated 10/25/23 @ 09:04 by Darnell Castro MD) Type 2 diabetes mellitus Essential hypertension Diverticulosis (Acute) Anemia (Acute) Acute lower GI bleeding (Acute) Contact dermatitis (Acute) Biceps strain 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 Iron deficiency Degenerative arthritis of knee, bilateral Foot pain Bilateral knee pain Statin intolerance (Chronic) Statin myopathy (Chronic) Anxiety (Chronic) Hypertension (Chronic) Asthma (Chronic) HX: breast cancer Vitamin D deficiency (Chronic) Seborrheic dermatitis (Acute) Peripheral neuropathy (Chronic) Osteoporosis (Acute) Incontinence (Acute) Gastroesophageal reflux disease (Chronic) Dyslipidemia (Chronic) Diabetes mellitus with neurological manifestations, controlled (Chronic) Depression (Acute) Urinary frequency Urinary urgency Medical History COVID-19 Otitis externa of right ear Diverticulosis of intestine Breast cancer Asthma Hypertension Diabetes Anxiety Lower GI bleed (2017) Hyperparathyroidism Surgical History Hx of blepharoplasty S/P cataract extraction Bilateral cataract surgery 2019 History of hysterectomy History of lumpectomy History of sinus surgery History of colonoscopy H/O: H/O oral surgery Family History Mother Diabetes Hypertension Breast cancer Father Emphysema/COPD Stroke syndrome Coronary heart disease Unknown Cancer Stroke syndrome Heart disease Pulmonary embolism Denies family history of Ovarian cancer Prostate cancer Colorectal cancer Social History Smoking Status: Never smoker Second Hand Exposure: No; Do You Dip or Chew Tobacco: No; Hx Alcohol Use: No Hx Substance Use: No Preferred Language: Citizen Of [place] Communication Ability: Effective Visual Impairment: No Limitations Hearing Ability: Normal Tunneller Required: No marital status: Current Living Situation: Spouse current occupational status: retired 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 Safe at Home: Yes Childhood Exposure to Second-Hand Smoke: Yes Diet: vegetarian caffeine: No Dental Care, Regularly: Yes Physical Activity Frequency: 3-4 Times per Week Seatbelt Use: always Sunscreen Use: No Assistive Devices: Glasses Allergies Allergies Allergy/AdvReac Type Severity Reaction Status Date / Time blue dye Allergy Severe "THROAT Verified 10/22/23 14:43 CLOSED UP AND TERRIBLE HEADACHE" fesoterodine Allergy Severe "THROAT Verified 10/22/23 14:43 CLOSED UP AND TERRIBLE HEADACHE" lecithin,egg Allergy Severe "THROAT Verified 10/22/23 14:43 CLOSED UP AND TERRIBLE HEADACHE" midazolam Allergy Severe CENTRAL Verified 10/22/23 14:43 NERVOUS REACTION "ACTING OUT" peanut Allergy Severe ANAPLYLAXIS Verified 10/22/23 14:43 chocolate flavor Allergy Intermediate RASH Verified 10/22/23 14:43 diltiazem [From Cardizem] Allergy Intermediate PT STATES Verified 10/22/23 14:43 "EITHER BODY ACHES OR UPSET STOMACH". metoprolol [From Toprol XL] Allergy Intermediate PT STATES Verified 10/22/23 14:43 "EITHER BODY ACHES OR UPSET STOMACH". adhesive tape Allergy Mild localized Verified 10/22/23 14:43 rash KADIE Inhibitors Allergy Unknown UNKNOWN Verified 10/22/23 14:43 Beta-Blockers Allergy Unknown UNKNOWN Verified 10/22/23 14:43 (Beta-Adrenergic Bloc codeine Allergy Unknown Unknown Verified 10/22/23 14:43 gentamicin Allergy Unknown unknown Verified 10/22/23 14:43 zolpidem Allergy Unknown UNKNOWN Verified 10/22/23 14:43 caffeine AdvReac Severe HYPERACTIVI Verified 10/22/23 14:43 TY [id number] Reductase AdvReac Severe Diffuse Verified 10/22/23 14:43 Inhibitor myalgias, myopathy corn AdvReac Intermediate HEADACHE Verified 10/22/23 14:43 [facility] AdvReac Intermediate abdominal Verified 10/22/23 14:43 discomfort metformin AdvReac Intermediate abdominal Verified 10/22/23 14:43 discomfort Home Meds Home Medications Medication Instructions Recorded Confirmed calcium carbonate (Calcium 600) 600 mg PO BID 09/25/18 10/25/23 trazodone 50 mg tablet 50 mg PO HS PRN sleep 09/25/18 10/25/23 citalopram 20 mg tablet 20 mg PO HS 03/10/20 10/25/23 melatonin 5 mg tablet 5 mg PO HS 08/27/20 10/25/23 cholecalciferol (vitamin D3) 50 2,000 unit PO BID 11/09/20 10/25/23 mcg (2,000 unit) capsule Previous Rx's Medication Instructions Recorded lancets (GeneriCoTouch UltraSoft #100 ea 08/29/20 Lancets) lancets 33 gauge (OneTouch Delica #100 ea 10/02/21 Lancets) diltiazem HCl 360 mg 360 mg PO QAM hypertension #90 caps 12/25/22 capsule,extended release 24 hr losartan 100 mg tablet 100 mg PO QAM #90 tabs 01/17/23 blood sugar diagnostic (OneTouch #100 ea 03/14/23 Verio test strips) gabapentin 100 mg capsule 200 mg (2 x 100 mg) PO BID 90 days 08/16/23 #360 caps evolocumab 140 mg/mL subcutaneous 140 mg subcut .every two weeks #2 08/18/23 pen injector (Chana Sheppard) mL sitagliptin phosphate 100 mg 100 mg PO HS #90 tabs 09/09/23 tablet (Januvia) omeprazole 20 mg capsule,delayed 20 mg PO DAILY gerd #90 caps 10/08/23 release prednisone 10 mg tablets in a dose See Rx Instructions PO .COMPLEX 10/22/23 pack #21 ea Results & Data (ED) Vital Signs Vital Signs - 24 hr 10/25/23 05:33 10/25/23 05:33 10/25/23 05:33 Temperature Temperature Source Pulse Rate 80 Pulse Rate [Apical] Pulse Rate from SpO2 Sensor Pulse Rhythm [Apical] Respiratory Rate Respiratory Effort / Characteristics Respiratory Depth Blood Pressure 160/89 H 160/89 H Blood Pressure [Right Arm] Blood Pressure Mean 120 120 Blood Pressure Mean [Right Arm] Pulse Oximetry Oxygen Delivery Method Sepsis Recent Fever Within 48 Hours Sepsis New/Unexplained Change in Mental Status Sepsis Action Taken by Nursing 10/25/23 05:35 10/25/23 05:35 10/25/23 05:43 Temperature 36.5 C 36.5 C Temperature Source Oral Oral Pulse Rate 80 Pulse Rate [Apical] 80 Pulse Rate from SpO2 Sensor Pulse Rhythm [Apical] Respiratory Rate 24 24 Respiratory Effort / Characteristics Non-Labored Non-Labored Respiratory Depth Normal Normal Blood Pressure 160/89 H Blood Pressure [Right Arm] 160/89 H Blood Pressure Mean 112 Blood Pressure Mean [Right Arm] 112 Pulse Oximetry 96 96 96 Oxygen Delivery Method Room Air Room Air Room Air Sepsis Recent Fever Within 48 Hours No Sepsis New/Unexplained Change in Mental Status No Sepsis Action Taken by Nursing No Action Required 10/25/23 06:25 10/25/23 06:33 10/25/23 06:35 Temperature Temperature Source Pulse Rate 70 Pulse Rate [Apical] 68 Pulse Rate from SpO2 Sensor 67 Pulse Rhythm [Apical] Regular Respiratory Rate 18 14 Respiratory Effort / Characteristics Non-Labored Respiratory Depth Normal Blood Pressure 140/83 Blood Pressure [Right Arm] 140/83 Blood Pressure Mean 91 Blood Pressure Mean [Right Arm] 102 Pulse Oximetry 98 98 Oxygen Delivery Method Room Air Sepsis Recent Fever Within 48 Hours Sepsis New/Unexplained Change in Mental Status Sepsis Action Taken by Nursing 10/25/23 07:36 10/25/23 08:00 10/25/23 08:00 Temperature Temperature Source Pulse Rate 82 68 Pulse Rate [Apical] 79 Pulse Rate from SpO2 Sensor 68 Pulse Rhythm [Apical] Respiratory Rate 20 18 19 Respiratory Effort / Characteristics Non-Labored Respiratory Depth Normal Blood Pressure Blood Pressure [Right Arm] 159/74 H Blood Pressure Mean Blood Pressure Mean [Right Arm] 102 Pulse Oximetry 99 97 Oxygen Delivery Method Sepsis Recent Fever Within 48 Hours Sepsis New/Unexplained Change in Mental Status Sepsis Action Taken by Nursing 10/25/23 08:36 Temperature Temperature Source Pulse Rate 62 Pulse Rate [Apical] Pulse Rate from SpO2 Sensor 61 Pulse Rhythm [Apical] Respiratory Rate 13 Respiratory Effort / Characteristics Respiratory Depth Blood Pressure Blood Pressure [Right Arm] Blood Pressure Mean Blood Pressure Mean [Right Arm] Pulse Oximetry 97 Oxygen Delivery Method Sepsis Recent Fever Within 48 Hours Sepsis New/Unexplained Change in Mental Status Sepsis Action Taken by Half-Way Medications Current Medication List: was personally reviewed by me Laboratory Data Attestation: I reviewed the patient's lab results. 10/25/23 05:40 10/25/23 05:40 Lab Results 10/25/23 10/25/23 10/25/23 Range/Units 05:40 05:49 06:28 WBC 13.07 H (4.8-10.8) K/ul RBC 3.50 L (4.20-5.40) M/uL Hgb 10.1 L (12.0-16.0) g/dl POC Hgb 9.9 L (12.0-16.0) g/dl Hct 31.2 L (37.0-47.0) % POC Hct 29 L (37-47) % MCV 89.1 (80.0-100.0) fL MCH 28.9 (25.0-34.0) pg MCHC 32.4 (32.0-36.0) g/dL RDW Std Deviation 47.0 H (36.4-46.3) fL RDW Coeff of Jose Roberto 14.6 H (11.5-14.5) % Plt Count 260 (130-400) K/uL MPV 10.8 (9.4-12.4) fL Immature Gran % (Auto) 0.7 % Neut % (Auto) 75.5 % Lymph % (Auto) 15.5 % [place] % (Auto) 7.2 % Eos % (Auto) 0.8 % Baso % (Auto) 0.3 % Neut # (Auto) 9.88 H (1.40-6.50) K/uL Lymph # (Auto) 2.02 (1.20-3.40) K/uL [place] # (Auto) 0.94 H (0.11-0.59) K/uL Eos # (Auto) 0.10 (0.00-0.50) K/uL Baso # (Auto) 0.04 (0.00-0.20) K/uL Immature Gran # (Auto) 0.09 (0.01-0.20) K/uL POC Sodium 140 (135-144) mmol/L Sodium 140 (136-145) mmol/L POC Potassium 3.9 (3.3-5.0) mmol/L Potassium 3.9 (3.5-5.1) mmol/L POC Chloride 106 (101-112) mmol/L Chloride 106 (98-107) mmol/L Carbon Dioxide 27 (21-32) mmol/L POC Total CO2 25 (24-31) mmol/L Anion Gap 7 (3-11) POC Anion Gap 14.0 L (16-25) mmol/L POC BUN 26 H (7-18) mg/dl BUN 28 H (6-23) mg/dl Creatinine 0.75 (0.6-1.2) mg/dl POC Creatinine 0.8 (0.6-1.3) mg/dl Est Cr Clr Drug Dosing 56.8 ml/min Est GFR ( Amer) 91.0 ml/min Est GFR (Non-Af Amer) 78.5 ml/min BUN/Creatinine Ratio 37.3 H (10-20) Glucose 122 H (70-99(Fasting)) mg/dl POC Glucose (other) 119 H (70-99) mg/dl Calcium 8.9 (8.6-10.3) mg/dl POC Ioniz Calcium Venu 1.20 (1.12-1.32) mmol/l Magnesium 2.0 (1.7-2.4) mg/dl Total Bilirubin 0.3 (0.2-1.0) mg/dl AST 12 L (13-39) U/L ALT 8 (7-52) U/L Alkaline Phosphatase 57 (34-104) U/L Troponin I High Sens 3.7 (0-14) pg/ml Total Protein 6.6 (6.0-8.3) gm/dl Albumin 3.9 (3.4-5.0) gm/dl Globulin 2.7 (2.5-4.0) gm/dl Albumin/Globulin Ratio 1.4 (0.9-2) Lipase 24 (11-82) U/L Urine Color Yellow Urine Appearance Clear (Clear) Urine pH 5.0 (4.5-7.5) Ur Specific Premier 1.027 (1.000-1.030) Urine Protein Negative (Negative) Urine Glucose (UA) Negative (Negative) Urine Ketones Negative (Negative) Urine Blood Negative (Negative) Urine Nitrite Negative (Negative) Urine Bilirubin Negative (Negative) Urine Urobilinogen Negative (Negative) Ur Leukocyte Esterase 2+ H (Negative) Urine WBC (Auto) 11-20 H (0-5) /hpf Urine RBC (Auto) 0-2 (0-2) /hpf U Hyaline Cast (Auto) 6-10 H (0-2) /lpf U Epithel Cells (Auto) 6-10 H (0-2) /hpf Urine Bacteria (Auto) None Seen (None Seen) Calcium Oxalate Crystal Present A (None Prsent) Blood Type Antibody Screen 10/25/23 Range/Units 06:38 WBC (4.8-10.8) K/ul RBC (4.20-5.40) M/uL Hgb (12.0-16.0) g/dl POC Hgb (12.0-16.0) g/dl Hct (37.0-47.0) % POC Hct (37-47) % MCV (80.0-100.0) fL MCH (25.0-34.0) pg MCHC (32.0-36.0) g/dL RDW Std Deviation (36.4-46.3) fL RDW Coeff of Jose Roberto (11.5-14.5) % Plt Count (130-400) K/uL MPV (9.4-12.4) fL Immature Gran % (Auto) % Neut % (Auto) % Lymph % (Auto) % [place] % (Auto) % Eos % (Auto) % Baso % (Auto) % Neut # (Auto) (1.40-6.50) K/uL Lymph # (Auto) (1.20-3.40) K/uL [place] # (Auto) (0.11-0.59) K/uL Eos # (Auto) (0.00-0.50) K/uL Baso # (Auto) (0.00-0.20) K/uL Immature Gran # (Auto) (0.01-0.20) K/uL POC Sodium (135-144) mmol/L Sodium (136-145) mmol/L POC Potassium (3.3-5.0) mmol/L Potassium (3.5-5.1) mmol/L POC Chloride (101-112) mmol/L Chloride (98-107) mmol/L Carbon Dioxide (21-32) mmol/L POC Total CO2 (24-31) mmol/L Anion Gap (3-11) POC Anion Gap (16-25) mmol/L POC BUN (7-18) mg/dl BUN (6-23) mg/dl Creatinine (0.6-1.2) mg/dl POC Creatinine (0.6-1.3) mg/dl Est Cr Clr Drug Dosing ml/min Est GFR ( Amer) ml/min Est GFR (Non-Af Amer) ml/min BUN/Creatinine Ratio (10-20) Glucose (70-99(Fasting)) mg/dl POC Glucose (other) (70-99) mg/dl Calcium (8.6-10.3) mg/dl POC Ioniz Calcium Venu (1.12-1.32) mmol/l Magnesium (1.7-2.4) mg/dl Total Bilirubin (0.2-1.0) mg/dl AST (13-39) U/L ALT (7-52) U/L Alkaline Phosphatase (34-104) U/L Troponin I High Sens (0-14) pg/ml Total Protein (6.0-8.3) gm/dl Albumin (3.4-5.0) gm/dl Globulin (2.5-4.0) gm/dl Albumin/Globulin Ratio (0.9-2) Lipase (11-82) U/L Urine Color Urine Appearance (Clear) Urine pH (4.5-7.5) Ur Specific Premier (1.000-1.030) Urine Protein (Negative) Urine Glucose (UA) (Negative) Urine Ketones (Negative) Urine Blood (Negative) Urine Nitrite (Negative) Urine Bilirubin (Negative) Urine Urobilinogen (Negative) Ur Leukocyte Esterase (Negative) Urine WBC (Auto) (0-5) /hpf Urine RBC (Auto) (0-2) /hpf U Hyaline Cast (Auto) (0-2) /lpf U Epithel Cells (Auto) (0-2) /hpf Urine Bacteria (Auto) (None Seen) Calcium Oxalate Crystal (None Prsent) Blood Type A Positive Antibody Screen NEGATIVE Administered Medications Pantoprazole Sodium (Pantoprazole 40 Mg Tab) 40 mg PO DAILY [facility] Stop: 11/24/23 08:59 Last Admin: 10/25/23 12:10 Dose: 40 mg Documented By: SRNaman Discontinued Medications Sodium Chloride (Nss) 1,000 mls @ 999 mls/hr IV .Q1H1M ESPERANZA Stop: 10/25/23 06:45 Last Infusion: 10/25/23 10:47 Dose: Infused Documented By: Infusion: 10/25/23 07:27 Dose: 0 mls/hr Documented By: Admin: 10/25/23 06:27 Dose: 999 mls/hr Documented By: JOSE RAMON Imaging Data Attestation: I personally reviewed and interpreted this imaging study as follows: My Impression: CT of the abdomen and pelvis was obtained in the emergency department. My interpretation is no free air or definite bowel obstruction, diverticulosis was noted, final report pending. Radiologist's Impression: Abdomen/Pelvis CT 10/25/23 05:40 Exam(s): CT ABDOMEN + PELVIS Without Contrast EXAM: CT Abdomen and Pelvis Without Intravenous Contrast CLINICAL HISTORY: Reason for exam: left side abd pain. TECHNIQUE: Axial computed tomography images of the abdomen and pelvis without intravenous contrast. CTDI is 13.88 mGy and DLP is 653.51 mGy-cm. Automated exposure control was utilized for the study. A dose lowering technique was utilized adhering to the principles of ALARA. COMPARISON: CT Abdomen Pelvis dated august 27 2020 FINDINGS: Limitations: Limited evaluation in the absence of contrast. Lung bases: Unremarkable. No mass. No consolidation. Heart: Pericardial effusion measuring up to 6 mm. Cardiomegaly. Mediastinum: Moderate esophageal hiatal hernia. ABDOMEN: Liver: Unremarkable. Gallbladder and bile ducts: Unremarkable. No calcified stones. No ductal dilation. Pancreas: Unremarkable. No ductal dilation. Spleen: Unremarkable. No splenomegaly. Adrenals: Unremarkable. No mass. Kidneys and ureters: No evidence of radiopaque renal calculi or signs of collecting system dilatation. Stomach and bowel: No evidence of bowel obstruction. Colonic diverticulosis. No evidence of diverticulitis. PELVIS: Appendix: Normal appendix. Bladder: Unremarkable. No stones. Reproductive: Unremarkable as visualized. ABDOMEN and PELVIS: Intraperitoneal space: Unremarkable. No free air. No significant fluid collection. Bones/joints: Degenerative changes in the spine. No acute fracture. No dislocation. Soft tissues: Diastases recti. Vasculature: Unremarkable. No abdominal aortic aneurysm. Lymph nodes: Unremarkable. No enlarged lymph nodes. IMPRESSION: 1. Limited evaluation in the absence of contrast. 2. No evidence of radiopaque renal calculi or signs of collecting system dilatation. 3. Other incidental findings as described. Electronically signed by: Jt Alamo MD 10/25/23 08:14 AM Discharge Plan Visit Data Chief Complaint: Rectal Bleed Stated Complaint: Rectal Bleed, N/V ED Provider: Jesus Douglass ED Midlevel Provider: Linda Chao Discharge Problem: Acute lower GI bleeding, Anemia, Diverticulosis Patient Disposition: Being Evaluated by Hospitalist Discharge Instructions Interventions: ED Discharge Assessment Last Done: 10/25/23 10:30 Discharge Problem: Anemia Qualifiers: Anemia type: unspecified type Qualified Code(s): D64.9 - Anemia, unspecified
[2023-10-25 07:16] LABS: Troponin I High Sensitivity 3.7 pg/ml (0-14)
[2023-10-25 07:45] LABS: Appearance Urine Clear (Clear); Bacteria Urine Automated None Seen (None Seen); Bilirubin Urine Negative (Negative); Blood Urine Negative (Negative); Calcium Oxalate Crystals Urine Present (None Prsent); Color Urine Yellow; Glucose Urine UA Negative (Negative); Ketones Urine Negative (Negative); Leukocyte Esterase Urine 2+ (Negative); Nitrite Urine Negative (Negative); Protein Urine Negative (Negative); RBC Urine Automated 0-2 /hpf (0-2); Specific Gravity Urine 1.027 (1.000-1.030); Urobilinogen Urine Negative (Negative)
--- NOTE | 2023-10-25 08:15 | CT Scan Report ---
Exam(s): CT ABDOMEN + PELVIS Without Contrast EXAM: CT Abdomen and Pelvis Without Intravenous Contrast CLINICAL HISTORY: Reason for exam: left side abd pain. TECHNIQUE: Axial computed tomography images of the abdomen and pelvis without intravenous contrast. CTDI is 13.88 mGy and DLP is 653.51 mGy-cm. Automated exposure control was utilized for the study. A dose lowering technique was utilized adhering to the principles of ALARA. COMPARISON: CT Abdomen Pelvis dated august 27 2020 FINDINGS: Limitations: Limited evaluation in the absence of contrast. Lung bases: Unremarkable. No mass. No consolidation. Heart: Pericardial effusion measuring up to 6 mm. Cardiomegaly. Mediastinum: Moderate esophageal hiatal hernia. ABDOMEN: Liver: Unremarkable. Gallbladder and bile ducts: Unremarkable. No calcified stones. No ductal dilation. Pancreas: Unremarkable. No ductal dilation. Spleen: Unremarkable. No splenomegaly. Adrenals: Unremarkable. No mass. Kidneys and ureters: No evidence of radiopaque renal calculi or signs of collecting system dilatation. Stomach and bowel: No evidence of bowel obstruction. Colonic diverticulosis. No evidence of diverticulitis. PELVIS: Appendix: Normal appendix. Bladder: Unremarkable. No stones. Reproductive: Unremarkable as visualized. ABDOMEN and PELVIS: Intraperitoneal space: Unremarkable. No free air. No significant fluid collection. Bones/joints: Degenerative changes in the spine. No acute fracture. No dislocation. Soft tissues: Diastases recti. Vasculature: Unremarkable. No abdominal aortic aneurysm. Lymph nodes: Unremarkable. No enlarged lymph nodes. IMPRESSION: 1. Limited evaluation in the absence of contrast. 2. No evidence of radiopaque renal calculi or signs of collecting system dilatation. 3. Other incidental findings as described. Electronically signed by: Jt Alamo MD 10/25/23 08:14 AM
--- NOTE | 2023-10-25 08:39 | Electrocardiogram Report ---
Test Reason : Blood Pressure : */* mmHG Vent. Rate : 62 BPM Atrial Rate : 62 BPM P-R Int : 146 ms QRS Dur : 90 ms QT Int : 404 ms P-R-T Axes : 63 6 51 degrees QTcB Int : 410 ms Normal sinus rhythm Poor R wave progression, consider anterior MA vs. lead placement vs. LVH Abnormal ECG When compared with ECG of 18-Mar-2022 15:57, Vent. rate has decreased by 42 bpm T wave inversion no longer evident in Lateral leads Confirmed by Tai Jensen ([id number]) on 10/25/2023 8:39:06 AM Referred By: REFERRED SELF Confirmed By: Tai Jensen
[2023-10-25] MEDS ORDERED: ONDANSETRON INJ 2 MG/ML 2 ML VIAL IV PRN (08:59)
--- NOTE | 2023-10-25 09:05 | History & Physical Report ---
Date of Service October 25, 2023 Assessment & Plan (1) Acute lower GI bleeding: Plan: GI consultation. Probably of diverticular origin. Serial labs ordered. IV fluids for now. Clear liquids. Watchful waiting (2) Anemia: Plan: Mild acute blood loss anemia on admission. Serial labs ordered (3) Essential hypertension: Plan: Currently stable. Continue current medical management (4) Diverticulosis: Plan: Longtime history of colonic diverticulosis. Likely source of lower GI bleeding. (5) Type 2 diabetes mellitus: Plan: Sliding scale insulin for now. Oral medications are on hold Plan Hopeful discharge back to home once lower GI bleeding stops History of Present Illness Chief Complaint: Lower GI bleeding Primary Care Provider: Hernan Barney, 73-year-old white female with several days of lower GI bleeding and passing clots. She has a history of diverticulosis and previously had a GI bleed. CT scan done on admission reveals colonic diverticulosis. She does have left lower quadrant discomfort but there is no evidence of acute diverticulitis. Nevertheless, she is transiently on intravenous Unasyn. Clear liquids for now with IV fluids and serial labs. GI consultation requested. Allergies Allergy/AdvReac Type Severity Reaction Status Date / Time blue dye Allergy Severe "THROAT Verified 10/22/23 14:43 CLOSED UP AND TERRIBLE HEADACHE" fesoterodine Allergy Severe "THROAT Verified 10/22/23 14:43 CLOSED UP AND TERRIBLE HEADACHE" lecithin,egg Allergy Severe "THROAT Verified 10/22/23 14:43 CLOSED UP AND TERRIBLE HEADACHE" midazolam Allergy Severe CENTRAL Verified 10/22/23 14:43 NERVOUS REACTION "ACTING OUT" peanut Allergy Severe ANAPLYLAXIS Verified 10/22/23 14:43 chocolate flavor Allergy Intermediate RASH Verified 10/22/23 14:43 diltiazem [From Cardizem] Allergy Intermediate PT STATES Verified 10/22/23 14:43 "EITHER BODY ACHES OR UPSET STOMACH". metoprolol [From Toprol XL] Allergy Intermediate PT STATES Verified 10/22/23 14:43 "EITHER BODY ACHES OR UPSET STOMACH". adhesive tape Allergy Mild localized Verified 10/22/23 14:43 rash KADIE Inhibitors Allergy Unknown UNKNOWN Verified 10/22/23 14:43 Beta-Blockers Allergy Unknown UNKNOWN Verified 10/22/23 14:43 (Beta-Adrenergic Bloc codeine Allergy Unknown Unknown Verified 10/22/23 14:43 gentamicin Allergy Unknown unknown Verified 10/22/23 14:43 zolpidem Allergy Unknown UNKNOWN Verified 10/22/23 14:43 caffeine AdvReac Severe HYPERACTIVI Verified 10/22/23 14:43 TY [id number] Reductase AdvReac Severe Diffuse Verified 10/22/23 14:43 Inhibitor myalgias, myopathy corn AdvReac Intermediate HEADACHE Verified 10/22/23 14:43 [facility] AdvReac Intermediate abdominal Verified 10/22/23 14:43 discomfort metformin AdvReac Intermediate abdominal Verified 10/22/23 14:43 discomfort Home Medications Medication Instructions Recorded Confirmed Type aflibercept 2 mg/0.05 mL 2 mg intravitreal .COMPLEX 09/25/18 10/22/23 History intravitreal solution for injection (Eylea) calcium carbonate (Calcium 600) 600 mg PO BID 09/25/18 10/22/23 History trazodone 50 mg tablet 50 mg PO HS PRN sleep 09/25/18 10/22/23 History citalopram 20 mg tablet 20 mg PO HS 03/10/20 10/22/23 History melatonin 5 mg tablet 5 mg PO HS 08/27/20 10/22/23 History lancets (OneTouch UltraSoft #100 ea 08/29/20 10/22/23 Rx Lancets) cholecalciferol (vitamin D3) 50 2,000 unit PO BID 11/09/20 10/22/23 History mcg (2,000 unit) capsule lancets 33 gauge (OneTouch Delica #100 ea 10/02/21 10/22/23 Rx Lancets) diltiazem HCl 360 mg 360 mg PO QAM hypertension #90 caps 12/25/22 10/22/23 Rx capsule,extended release 24 hr losartan 100 mg tablet 100 mg PO QAM #90 tabs 01/17/23 10/22/23 Rx blood sugar diagnostic (OneTouch #100 ea 03/14/23 10/22/23 Rx Verio test strips) gabapentin 100 mg capsule 200 mg (2 x 100 mg) PO BID 90 days 08/16/23 10/22/23 Rx #360 caps evolocumab 140 mg/mL subcutaneous 140 mg subcut .every two weeks #2 08/18/23 10/22/23 Rx pen injector (Chana Sheppard) mL sitagliptin phosphate 100 mg 100 mg PO HS #90 tabs 09/09/23 10/22/23 Rx tablet (Januvia) omeprazole 20 mg capsule,delayed 20 mg PO DAILY gerd #90 caps 10/08/23 10/22/23 Rx release prednisone 10 mg tablets in a dose See Rx Instructions PO .COMPLEX 10/22/23 10/22/23 Rx pack #21 ea Past Med/Surg History Problem List (Updated 10/25/23 @ 09:04 by Darnell Castro MD) Type 2 diabetes mellitus Essential hypertension Diverticulosis (Acute) Anemia (Acute) Acute lower GI bleeding (Acute) Contact dermatitis (Acute) Biceps strain 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 Iron deficiency Degenerative arthritis of knee, bilateral Foot pain Bilateral knee pain Statin intolerance (Chronic) Statin myopathy (Chronic) Anxiety (Chronic) Hypertension (Chronic) Asthma (Chronic) HX: breast cancer Vitamin D deficiency (Chronic) Seborrheic dermatitis (Acute) Peripheral neuropathy (Chronic) Osteoporosis (Acute) Incontinence (Acute) Gastroesophageal reflux disease (Chronic) Dyslipidemia (Chronic) Diabetes mellitus with neurological manifestations, controlled (Chronic) Depression (Acute) Urinary frequency Urinary urgency Medical History COVID-19 Otitis externa of right ear Diverticulosis of intestine Breast cancer Asthma Hypertension Diabetes Anxiety Lower GI bleed (2017) Hyperparathyroidism Surgical History Hx of blepharoplasty S/P cataract extraction Bilateral cataract surgery 2019 History of hysterectomy History of lumpectomy History of sinus surgery History of colonoscopy H/O: H/O oral surgery Family History Mother Diabetes Hypertension Breast cancer Father Emphysema/COPD Stroke syndrome Coronary heart disease Unknown Cancer Stroke syndrome Heart disease Pulmonary embolism Denies family history of Ovarian cancer Prostate cancer Colorectal cancer Social History Smoking Status: Never smoker Second Hand Exposure: No; Do You Dip or Chew Tobacco: No; Hx Alcohol Use: No Hx Substance Use: No Preferred Language: Indonesian Communication Ability: Effective Visual Impairment: No Limitations Hearing Ability: Normal Trial Court Justice Required: No marital status: Current Living Situation: Spouse current occupational status: retired 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 Feels Safe at Home: Yes Childhood Exposure to Second-Hand Smoke: Yes Diet: vegetarian caffeine: No Dental Care, Regularly: Yes Physical Activity Frequency: 3-4 Times per Week Seatbelt Use: always Sunscreen Use: No Assistive Devices: Glasses Review of Systems 2 Review of Systems: Constitutionalno fever or chills ENTno blurred vision, no double vision, no epistaxis, no sore throat Respiratoryno cough, no wheezing, no shortness of breath Cardiacno palpitations, no chest pain, no syncope Alecia nausea, vomiting, diarrhea, melena. Recent onset of hematochezia and passing clots GUno urinary retention, no urinary incontinence, no dysuria, no hematuria Musculoskeletalno joint pain, no muscle tenderness Skinno bruising, no rashes, no pruritus Neurono isolated weakness, no paresthesia, no weakness. No syncope Psychno depression, no anxiety Physical Exam 2 Physical Exam: General-alert and oriented x3, no fever, no chills HEENT-head atraumatic and normocephalic, pupils equal and reactive to light, extraocular muscles intact Neck-no lymphadenopathy or thyromegaly, trachea midline Chest-clear to auscultation. No rales, wheezing or rhonchi Cardiac-regular rate and rhythm, normal S1 and S2 Abdomen-normal bowel sounds, no hepatosplenomegaly. Mild tenderness in the left midabdomen and left lower quadrant areas. No rebound or guarding. No masses Extremities-no cyanosis, clubbing, or edema Neuro-cranial nerves II through XII intact, motor and sensory function within normal limits, strength symmetrical, no focal deficits Psych-normal affect, normal mood Results & Data Results & Data Vital Signs (Past 12 Hours) Vital Signs Temp Pulse Pulse Resp BP BP Pulse Ox 10/25/23 08:36 62 13 97 10/25/23 08:00 68 19 97 10/25/23 08:00 79 18 159/74 H 99 10/25/23 07:36 82 20 10/25/23 06:35 68 14 140/83 98 10/25/23 06:33 70 18 98 10/25/23 06:25 140/83 10/25/23 05:43 96 10/25/23 05:35 36.5 C 80 24 160/89 H 96 10/25/23 05:35 36.5 C 80 24 160/89 H 96 10/25/23 05:33 160/89 H 10/25/23 05:33 160/89 H 10/25/23 05:33 80 O2 Del Method 10/25/23 08:36 10/25/23 08:00 10/25/23 08:00 10/25/23 07:36 10/25/23 06:35 Room Air 10/25/23 06:33 10/25/23 06:25 10/25/23 05:43 Room Air 10/25/23 05:35 Room Air 10/25/23 05:35 Room Air 10/25/23 05:33 10/25/23 05:33 10/25/23 05:33 Laboratory Results 10/25/23 05:40 10/25/23 05:40 Code Status & VTE Plan Code Status Full code PG Care Time/CCT Total # of Minutes Spent Total Time Spent with Patient: Total time spent is greater than 50% in coordination of care (as documented) at patient's floor/unit and/or counseling patient: Coding Level of Care Code 26024 INT INP/OBS CARE 3/75MIN Diagnoses Acute lower GI bleeding K92.2 Anemia D64.9 Anemia type: unspecified type Essential hypertension I10 Diverticulosis K57.90 Type 2 diabetes mellitus E11.9 (2) Anemia Anemia type: unspecified type Qualified Code(s): D64.9 - Anemia, unspecified
[2023-10-25] MEDS: PANTOprazole 40 MG TAB PO SCH (12:10)
[2023-10-25 14:22] LABS: INR 0.9 (0.9-1.1); Partial Thromboplastin Ratio 0.7; Prothrombin Time 9.8 Seconds (9.0-12.0)
[2023-10-25 14:23] LABS: Partial Thromboplastin Time < 20 Seconds (21-31)
[2023-10-25] MEDS ORDERED: GLUCOSE 40% GEL 15 GM TUBE PO PRN (15:06)
[2023-10-25] MEDS ORDERED: GLUCAGON FOR INJ 1 MG VIAL SQ PRN (15:06)
[2023-10-25] MEDS ORDERED: CARBOHYDRATES FOR HYPOGLYCEMIA PO PRN (15:06)
[2023-10-25] MEDS ORDERED: AMPICILLIN SOD/SULBACTAM SOD 3 GM VIAL IV SCH (15:06)
[2023-10-25] MEDS ORDERED: GLUCOSE 10 TAB/TUBE PO PRN (15:06)
[2023-10-25] MEDS ORDERED: DEXTROSE 50% 50 ML SYRINGE IV PRN (15:06)
[2023-10-25 15:27] LABS: Hematocrit (blood only) 27.9 % (37.0-47.0); Hemoglobin 9.2 g/dl (12.0-16.0)
--- NOTE | 2023-10-25 15:32 | Gastrointestinal Consultation ---
Date of Consultation October 25, 2023 Assessment & Plan (1) Acute lower GI bleedin73 year old female with three episodes of painless rectal bleeding w/ drop in HGB 13.8 --> 9.2, CT imaging without acute pathology, colonoscopy in 2017 with evidence of diverticular disease. DDX discussed: suspected diverticular hemorrhage vs hemorrhoidal vs others May have clear liquid diet Trend H&H Monitor GI output Transfuse PRN If bleeding persists, please start a clear liquid diet Saturday, golytely prep for colonoscopy Saturday If bleeding resolves and HGB remains stable, she may be discharged home with plan for an outpatient colonoscopy I spent a total of 55 minutes on the date of service in review of patient's record, and previously obtained information in person and appropriate medical visit, discussion and education of plan, with patient and/or caregiver, placing orders for tests/referral/procedures as medically necessary and documentation of pertinent clinical information in patient's medical records for their visit today. Thank you for allowing us to participate in the care of this patient. P manas call with any acute changes, questions or concerns. Please see addendum below with additional recommendation from my supervising physician. Supervising Physician Co-Signing Physician Notes I personally saw and examined the patient. I have reviewed the chart and agree with the documentation provided by the HOUSING INSPECTOR including discussion about the assessment, treatment and plan. Briefly, 73 year old female with history of T2DM, SCOTT, HTN, asthma, anxiety and others below admitted with rectal bleeding. Pt was seen and evaluated, chart reviewed. Notes was in her typical state of health - last evening had urge to move her bowels - moved 3 large volume bloody stools. [place] light headed, dizzy followed by two bouts of emesis. This was undigested food. No further bleeding since. 3 gm hgb drop. Prior colonoscopy by Dr. Mcclendon in 2017 with sigmoid diverticulosis. Suspect diverticluar bleeding left sided. Suggest Clears today. If active bleeding, then CTA. If bleeding stops and hgb does not decline, can consider outpt colonoscopy expidited. Otherwise, will need colonoscopy saturday. History of Present Illness Reason for Consultation: rectal bleeding Requesting Physician: Matthew Attending Physician: Dranell Castro MD History of Present Illness 73 year old female with history of T2DM, SCOTT, HTN, asthma, anxiety and others below admitted with rectal bleeding. Pt was seen and evaluated, chart reviewed. Notes was in her typical state of health - last evening had urge to move her bowels - moved 3 large volume bloody stools. [place] light headed, dizzy followed by two bouts of emesis. This was undigested food. No black or bloody emesis. Continued to feel lightheaded/dizzy sought ED evaluation. Since arrival to the ED, no further episodes of blood. No black stools. Denies abd pain. No fever, chills, CP, SOB. HGB 13.8 --> 9.2 No blood thinners. Intermittent NSAIDs a week ago. Was on a course of prednisone for a rash. CTAP 2023: Liver: Unremarkable. Gallbladder and bile ducts: Unremarkable. No calcified stones. No ductal dilation. Pancreas: Unremarkable. No ductal dilation. Spleen: Unremarkable. No splenomegaly. Adrenals: Unremarkable. No mass. Kidneys and ureters: No evidence of radiopaque renal calculi or signs of collecting system dilatation. Stomach and bowel: No evidence of bowel obstruction. Colonic diverticulosis. No evidence of diverticulitis. Colonoscopy 2017: hemorrhoids, diverticulosis Allergies Allergy/AdvReac Type Severity Reaction Status Date / Time blue dye Allergy Severe "THROAT Verified 10/22/23 14:43 CLOSED UP AND TERRIBLE HEADACHE" fesoterodine Allergy Severe "THROAT Verified 10/22/23 14:43 CLOSED UP AND TERRIBLE HEADACHE" lecithin,egg Allergy Severe "THROAT Verified 10/22/23 14:43 CLOSED UP AND TERRIBLE HEADACHE" midazolam Allergy Severe CENTRAL Verified 10/22/23 14:43 NERVOUS REACTION "ACTING OUT" peanut Allergy Severe ANAPLYLAXIS Verified 10/22/23 14:43 chocolate flavor Allergy Intermediate RASH Verified 10/22/23 14:43 diltiazem [From Cardizem] Allergy Intermediate PT STATES Verified 10/22/23 14:43 "EITHER BODY ACHES OR UPSET STOMACH". metoprolol [From Toprol XL] Allergy Intermediate PT STATES Verified 10/22/23 14:43 "EITHER BODY ACHES OR UPSET STOMACH". adhesive tape Allergy Mild localized Verified 10/22/23 14:43 rash KADIE Inhibitors Allergy Unknown UNKNOWN Verified 10/22/23 14:43 Beta-Blockers Allergy Unknown UNKNOWN Verified 10/22/23 14:43 (Beta-Adrenergic Bloc codeine Allergy Unknown Unknown Verified 10/22/23 14:43 gentamicin Allergy Unknown unknown Verified 10/22/23 14:43 zolpidem Allergy Unknown UNKNOWN Verified 10/22/23 14:43 caffeine AdvReac Severe HYPERACTIVI Verified 10/22/23 14:43 TY Iwdukcn-SWN-CcA Reductase AdvReac Severe Diffuse Verified 10/22/23 14:43 Inhibitor myalgias, myopathy corn AdvReac Intermediate HEADACHE Verified 10/22/23 14:43 dulaglutide [[facility] AdvReac Intermediate abdominal Verified 10/22/23 14:43 discomfort metformin AdvReac Intermediate abdominal Verified 10/22/23 14:43 discomfort Home Medications Medication Instructions Recorded Confirmed Type calcium carbonate (Calcium 600) 600 mg PO BID 09/25/18 10/25/23 History trazodone 50 mg tablet 50 mg PO HS PRN sleep 09/25/18 10/25/23 History citalopram 20 mg tablet 20 mg PO HS 03/10/20 10/25/23 History melatonin 5 mg tablet 5 mg PO HS 08/27/20 10/25/23 History lancets (TilsonTouch UltraSoft #100 ea 08/29/20 10/22/23 Rx Lancets) cholecalciferol (vitamin D3) 50 2,000 unit PO BID 11/09/20 10/25/23 History mcg (2,000 unit) capsule lancets 33 gauge (TilsonTouch Delica #100 ea 10/02/21 10/22/23 Rx Lancets) diltiazem HCl 360 mg 360 mg PO QAM hypertension #90 caps 12/25/22 10/25/23 Rx capsule,extended release 24 hr losartan 100 mg tablet 100 mg PO QAM #90 tabs 01/17/23 10/25/23 Rx blood sugar diagnostic (TilsonTouch #100 ea 03/14/23 10/22/23 Rx Verio test strips) gabapentin 100 mg capsule 200 mg (2 x 100 mg) PO BID 90 days 08/16/23 10/25/23 Rx #360 caps evolocumab 140 mg/mL subcutaneous 140 mg subcut .every two weeks #2 08/18/23 10/25/23 Rx pen injector (Chana Sheppard) mL sitagliptin phosphate 100 mg 100 mg PO HS #90 tabs 09/09/23 10/25/23 Rx tablet (Januvia) omeprazole 20 mg capsule,delayed 20 mg PO DAILY gerd #90 caps 10/08/23 10/25/23 Rx release prednisone 10 mg tablets in a dose See Rx Instructions PO .COMPLEX 10/22/23 10/25/23 Rx pack #21 ea Patient History Medical History COVID-19 Otitis externa of right ear Diverticulosis of intestine Breast cancer Asthma Hypertension Diabetes Anxiety Lower GI bleed (2017) Hyperparathyroidism Surgical History Hx of blepharoplasty S/P cataract extraction Bilateral cataract surgery 2019 History of hysterectomy History of lumpectomy History of sinus surgery History of colonoscopy H/O: H/O oral surgery Family History Mother Diabetes Hypertension Breast cancer Father Emphysema/COPD Stroke syndrome Coronary heart disease Unknown Cancer Stroke syndrome Heart disease Pulmonary embolism Denies family history of Ovarian cancer Prostate cancer Colorectal cancer Social History Smoking Status: Never smoker Second Hand Exposure: No; Do You Dip or Chew Tobacco: No; Hx Alcohol Use: No Hx Substance Use: No Preferred Language: Romanian Communication Ability: Effective Visual Impairment: No Limitations Hearing Ability: Normal Mechatronics Engineer Required: No marital status: Current Living Situation: Spouse current occupational status: retired 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 Feels Safe at Home: Yes Childhood Exposure to Second-Hand Smoke: Yes Diet: vegetarian caffeine: No Dental Care, Regularly: Yes Physical Activity Frequency: 3-4 Times per Week Seatbelt Use: always Sunscreen Use: No Assistive Devices: Glasses Review of Systems Review of Systems: All other findings negative except as noted in HPI. Physical Exam Constitutional: WD/WN, vitals as above Respiratory: normal respiratory effort, lungs clear to auscultation Cardiovascular: RRR, no murmur, no edema Gastrointestinal (Abdomen): normal bowel sounds, soft, nontender, no hepatosplenomegaly Skin: no rashes, warm and dry Results & Data Vital Signs (Past 12 Hours) Vital Signs Temp Pulse Pulse Resp BP BP Pulse Ox 10/25/23 14:00 129/69 10/25/23 13:51 68 15 95 10/25/23 13:06 71 19 98 10/25/23 13:00 150/83 H 10/25/23 12:54 75 17 97 10/25/23 12:00 67 13 96 10/25/23 12:00 146/72 H 10/25/23 12:00 146/72 H 10/25/23 11:12 67 14 96 10/25/23 11:00 136/93 10/25/23 10:54 67 16 97 10/25/23 10:51 66 19 97 10/25/23 10:34 133/97 10/25/23 10:34 133/97 10/25/23 10:34 133/97 10/25/23 10:34 133/97 10/25/23 10:24 71 24 97 10/25/23 10:06 78 21 97 10/25/23 09:52 84 10/25/23 09:03 77 14 96 10/25/23 08:57 64 14 97 10/25/23 08:57 150/74 H 10/25/23 08:57 150/74 H 10/25/23 08:36 62 13 97 10/25/23 08:00 68 19 97 10/25/23 08:00 79 18 159/74 H 99 10/25/23 07:36 82 20 10/25/23 06:35 68 14 140/83 98 10/25/23 06:33 70 18 98 10/25/23 06:25 140/83 10/25/23 05:43 96 10/25/23 05:35 36.5 C 80 24 160/89 H 96 10/25/23 05:35 36.5 C 80 24 160/89 H 96 10/25/23 05:33 160/89 H 10/25/23 05:33 160/89 H 10/25/23 05:33 80 O2 Del Method 10/25/23 14:00 10/25/23 13:51 Room Air 10/25/23 13:06 10/25/23 13:00 10/25/23 12:54 10/25/23 12:00 10/25/23 12:00 10/25/23 12:00 10/25/23 11:12 10/25/23 11:00 10/25/23 10:54 10/25/23 10:51 08/23/24 10:34 10/25/23 10:34 10/25/23 10:34 10/25/23 10:34 10/25/23 10:24 Room Air 10/25/23 10:06 10/25/23 09:52 10/25/23 09:03 10/25/23 08:57 10/25/23 08:57 10/25/23 08:57 10/25/23 08:36 10/25/23 08:00 10/25/23 08:00 10/25/23 07:36 10/25/23 06:35 Room Air 10/25/23 06:33 10/25/23 06:25 10/25/23 05:43 Room Air 10/25/23 05:35 Room Air 10/25/23 05:35 Room Air 10/25/23 05:33 10/25/23 05:33 10/25/23 05:33 Laboratory Results 10/25/23 10/25/23 10/25/23 Range/Units 15:32 15:15 06:38 WBC (4.8-10.8) K/ul RBC (4.20-5.40) M/uL Hgb 9.2 L (12.0-16.0) g/dl POC Hgb (12.0-16.0) g/dl Hct 27.9 L (37.0-47.0) % POC Hct (37-47) % MCV (80.0-100.0) fL MCH (25.0-34.0) pg MCHC (32.0-36.0) g/dL RDW Std Deviation (36.4-46.3) fL RDW Coeff of Jose Roberto (11.5-14.5) % Plt Count (130-400) K/uL MPV (9.4-12.4) fL Immature Gran % (Auto) % Neut % (Auto) % Lymph % (Auto) % [place] % (Auto) % Eos % (Auto) % Baso % (Auto) % Neut # (Auto) (1.40-6.50) K/uL Lymph # (Auto) (1.20-3.40) K/uL [place] # (Auto) (0.11-0.59) K/uL Eos # (Auto) (0.00-0.50) K/uL Baso # (Auto) (0.00-0.20) K/uL Immature Gran # (Auto) (0.01-0.20) K/uL PT (9.0-12.0) Seconds INR (0.9-1.1) APTT (21-31) Seconds PTT Ratio POC Sodium (135-144) mmol/L Sodium (136-145) mmol/L POC Potassium (3.3-5.0) mmol/L Potassium (3.5-5.1) mmol/L POC Chloride (101-112) mmol/L Chloride (98-107) mmol/L Carbon Dioxide (21-32) mmol/L POC Total CO2 (24-31) mmol/L Anion Gap (3-11) POC Anion Gap (16-25) mmol/L POC BUN (7-18) mg/dl BUN (6-23) mg/dl Creatinine (0.6-1.2) mg/dl POC Creatinine (0.6-1.3) mg/dl Est Cr Clr Drug Dosing ml/min Est GFR ( Amer) ml/min Est GFR (Non-Af Amer) ml/min BUN/Creatinine Ratio (10-20) Glucose (70-99(Fasting)) mg/dl POC Glucose 123 H (70-99) mg/dl POC Glucose (other) (70-99) mg/dl Calcium (8.6-10.3) mg/dl POC Ioniz Calcium Venu (1.12-1.32) mmol/l Magnesium (1.7-2.4) mg/dl Total Bilirubin (0.2-1.0) mg/dl AST (13-39) U/L ALT (7-52) U/L Alkaline Phosphatase (34-104) U/L Troponin I High Sens (0-14) pg/ml Total Protein (6.0-8.3) gm/dl Albumin (3.4-5.0) gm/dl Globulin (2.5-4.0) gm/dl Albumin/Globulin Ratio (0.9-2) Lipase (11-82) U/L Urine Color Urine Appearance (Clear) Urine pH (4.5-7.5) Ur Specific [place] (1.000-1.030) Urine Protein (Negative) Urine Glucose (UA) (Negative) Urine Ketones (Negative) Urine Blood (Negative) Urine Nitrite (Negative) Urine Bilirubin (Negative) Urine Urobilinogen (Negative) Ur Leukocyte Esterase (Negative) Urine WBC (Auto) (0-5) /hpf Urine RBC (Auto) (0-2) /hpf U Hyaline Cast (Auto) (0-2) /lpf U Epithel Cells (Auto) (0-2) /hpf Urine Bacteria (Auto) (None Seen) Calcium Oxalate Crystal (None Prsent) Blood Type A Positive Antibody Screen NEGATIVE 10/25/23 10/25/23 10/25/23 Range/Units 06:28 05:49 05:40 WBC 13.07 H (4.8-10.8) K/ul RBC 3.50 L (4.20-5.40) M/uL Hgb 10.1 L (12.0-16.0) g/dl POC Hgb 9.9 L (12.0-16.0) g/dl Hct 31.2 L (37.0-47.0) % POC Hct 29 L (37-47) % MCV 89.1 (80.0-100.0) fL MCH 28.9 (25.0-34.0) pg MCHC 32.4 (32.0-36.0) g/dL RDW Std Deviation 47.0 H (36.4-46.3) fL RDW Coeff of Jose Roberto 14.6 H (11.5-14.5) % Plt Count 260 (130-400) K/uL MPV 10.8 (9.4-12.4) fL Immature Gran % (Auto) 0.7 % Neut % (Auto) 75.5 % Lymph % (Auto) 15.5 % [place] % (Auto) 7.2 % Eos % (Auto) 0.8 % Baso % (Auto) 0.3 % Neut # (Auto) 9.88 H (1.40-6.50) K/uL Lymph # (Auto) 2.02 (1.20-3.40) K/uL [place] # (Auto) 0.94 H (0.11-0.59) K/uL Eos # (Auto) 0.10 (0.00-0.50) K/uL Baso # (Auto) 0.04 (0.00-0.20) K/uL Immature Gran # (Auto) 0.09 (0.01-0.20) K/uL PT 9.8 (9.0-12.0) Seconds INR 0.9 (0.9-1.1) APTT < 20 L (21-31) Seconds PTT Ratio 0.7 POC Sodium 140 (135-144) mmol/L Sodium 140 (136-145) mmol/L POC Potassium 3.9 (3.3-5.0) mmol/L Potassium 3.9 (3.5-5.1) mmol/L POC Chloride 106 (101-112) mmol/L Chloride 106 (98-107) mmol/L Carbon Dioxide 27 (21-32) mmol/L POC Total CO2 25 (24-31) mmol/L Anion Gap 7 (3-11) POC Anion Gap 14.0 L (16-25) mmol/L POC BUN 26 H (7-18) mg/dl BUN 28 H (6-23) mg/dl Creatinine 0.75 (0.6-1.2) mg/dl POC Creatinine 0.8 (0.6-1.3) mg/dl Est Cr Clr Drug Dosing 56.8 ml/min Est GFR ( Amer) 91.0 ml/min Est GFR (Non-Af Amer) 78.5 ml/min BUN/Creatinine Ratio 37.3 H (10-20) Glucose 122 H (70-99(Fasting)) mg/dl POC Glucose (70-99) mg/dl POC Glucose (other) 119 H (70-99) mg/dl Calcium 8.9 (8.6-10.3) mg/dl POC Ioniz Calcium Venu 1.20 (1.12-1.32) mmol/l Magnesium 2.0 (1.7-2.4) mg/dl Total Bilirubin 0.3 (0.2-1.0) mg/dl AST 12 L (13-39) U/L ALT 8 (7-52) U/L Alkaline Phosphatase 57 (34-104) U/L Troponin I High Sens 3.7 (0-14) pg/ml Total Protein 6.6 (6.0-8.3) gm/dl Albumin 3.9 (3.4-5.0) gm/dl Globulin 2.7 (2.5-4.0) gm/dl Albumin/Globulin Ratio 1.4 (0.9-2) Lipase 24 (11-82) U/L Urine Color Yellow Urine Appearance Clear (Clear) Urine pH 5.0 (4.5-7.5) Ur Specific [place] 1.027 (1.000-1.030) Urine Protein Negative (Negative) Urine Glucose (UA) Negative (Negative) Urine Ketones Negative (Negative) Urine Blood Negative (Negative) Urine Nitrite Negative (Negative) Urine Bilirubin Negative (Negative) Urine Urobilinogen Negative (Negative) Ur Leukocyte Esterase 2+ H (Negative) Urine WBC (Auto) 11-20 H (0-5) /hpf Urine RBC (Auto) 0-2 (0-2) /hpf U Hyaline Cast (Auto) 6-10 H (0-2) /lpf U Epithel Cells (Auto) 6-10 H (0-2) /hpf Urine Bacteria (Auto) None Seen (None Seen) Calcium Oxalate Crystal Present A (None Prsent) Blood Type Antibody Screen PG Care Time/CCT Total # of Minutes Spent Total Time Spent with Patient: Total time spent is greater than 50% in coordination of care (as documented) at patient's floor/unit and/or counseling patient: Coding Level of Care Code 13477 INT INP/OBS CARE 2MIN Diagnoses Acute lower GI bleeding K92.2
[2023-10-25] MEDS: INSULIN ASPART PER UNIT CHARGE SC SCH (15:36)
[2023-10-25] MEDS: AMPICILLIN/SULBACTAM SOD 3,000 MG/100 ML BAG IV SCH (15:53)
[2023-10-25] MEDS: GABAPENTIN 100 MG CAP PO SCH (15:57)
[2023-10-25] MEDS: LOSARTAN POTASSIUM 50 MG TAB PO SCH (15:57)
[2023-10-25] MEDS: MELATONIN 3 MG TAB PO SCH (21:23)
[2023-10-25] MEDS: CITALOPRAM 20 MG TAB PO SCH (21:23)
[2023-10-25 21:58] LABS: Hematocrit (blood only) 28.6 % (37.0-47.0); Hemoglobin 9.3 g/dl (12.0-16.0)
[2023-10-26 04:06] LABS: Basophils # (auto) 0.04 K/uL (0.00-0.20); Basophils % (auto) 0.6 %; Eosinophils # (auto) 0.18 K/uL (0.00-0.50); Eosinophils % (auto) 2.5 %; Hematocrit (blood only) 25.1 % (37.0-47.0); Hemoglobin 8.1 g/dl (12.0-16.0); Immature Granulocytes # (auto) 0.02 K/uL (0.01-0.20); Immature Granulocytes % (auto) 0.3 %; Lymphocytes # (auto) 2.12 K/uL (1.20-3.40); Lymphocytes % (auto) 29.8 %; Mean Corpuscular Hemoglobin 28.9 pg (25.0-34.0); Mean Corpuscular Hgb Conc 32.3 g/dL (32.0-36.0); Mean Corpuscular Volume 89.6 fL (80.0-100.0); Mean Platelet Volume 10.4 fL (9.4-12.4); Monocytes # (auto) 0.49 K/uL (0.11-0.59); Monocytes % (auto) 6.9 %; Neutrophils # (auto) 4.27 K/uL (1.40-6.50); Neutrophils % (auto) 59.9 %; Platelet Count 208 K/uL (130-400); RDW Coefficient of Variation 14.6 % (11.5-14.5); RDW Standard Deviation 47.6 fL (36.4-46.3); White Blood Count 7.12 K/ul (4.8-10.8)
[2023-10-26 04:18] LABS: BUN Creatinine Ratio 19.7 (10-20); Calcium 7.6 mg/dl (8.6-10.3); Creatinine Clr Calc Pharmacy 64.6 ml/min; Est GFR (African American) 100.9 ml/min; Potassium 3.5 mmol/L (3.5-5.1)
[2023-10-26 07:15] LABS: Hematocrit (blood only) 26.1 % (37.0-47.0); Hemoglobin 8.7 g/dl (12.0-16.0)
[2023-10-26] MEDS: dilTIAZem HCL 180 MG CAPCR PO SCH (07:47)
--- NOTE | 2023-10-26 11:14 | Hospitalist Progress Note ---
Date of Service October 26, 2023 Assessment & Plan (1) Acute lower GI bleeding: Plan: GI consultation appreciated. The patient prefers to have a colonoscopy done while she is here which can be done on Saturday. She will remain on clear liquids. Probably of diverticular origin. Serial labs ordered. Continue IV fluids. (2) Anemia: Plan: Mild acute blood loss anemia on admission. Hemoglobin slightly low but stable. No indication for transfusion at this time. (3) Essential hypertension: Plan: Currently stable. Continue current medical management (4) Diverticulosis: Plan: Longtime history of colonic diverticulosis. Likely source of lower GI bleeding. (5) Type 2 diabetes mellitus: Plan: Sliding scale insulin for now. Oral medications are on hold Plan Hopeful discharge back to home early next week Admission and Anticipated Discharge Date Admission Date: October 25, 2023 Subjective Alert and oriented. No distress. She states she had a formed nonhematochezic bowel movement earlier today, October 25. GI consultation noted. The patient prefers to have the colonoscopy done here due to outpatient transportation difficulties. She will remain on a clear liquid diet and kept n.p.o. after midnight on Saturday for C-scope on Saturday. Hemoglobin is stable at 8.7. No indication for transfusion at this point. Glucose 98 this morning, October 25. Abdomen CT scan noted. No evidence of diverticulitis. Unasyn has been discontinued Review of Systems 2 Review of Systems: Constitutionalno fever or chills ENTno blurred vision, no double vision, no epistaxis, no sore throat Respiratoryno cough, no wheezing, no shortness of breath Cardiacno palpitations, no chest pain, no syncope Alecia nausea, vomiting, diarrhea, melena. Recent onset of hematochezia and passing clots GUno urinary retention, no urinary incontinence, no dysuria, no hematuria Musculoskeletalno joint pain, no muscle tenderness Skinno bruising, no rashes, no pruritus Neurono isolated weakness, no paresthesia, no weakness. No syncope Psychno depression, no anxiety Physical Exam 2 Physical Exam: General-alert and oriented x3, no fever, no chills HEENT-head atraumatic and normocephalic, pupils equal and reactive to light, extraocular muscles intact Neck-no lymphadenopathy or thyromegaly, trachea midline Chest-clear to auscultation. No rales, wheezing or rhonchi Cardiac-regular rate and rhythm, normal S1 and S2 Abdomen-normal bowel sounds, no hepatosplenomegaly. Mild tenderness in the left midabdomen and left lower quadrant areas. No rebound or guarding. No masses Extremities-no cyanosis, clubbing, or edema Neuro-cranial nerves II through XII intact, motor and sensory function within normal limits, strength symmetrical, no focal deficits Psych-normal affect, normal mood Results & Data Results & Data Vital Signs (Past 12 Hours) Vital Signs Temp Pulse Pulse Resp BP Pulse Ox O2 Del Method 10/26/23 08:04 36.5 C 79 18 173/95 H 93 Room Air 10/26/23 07:14 88 10/26/23 03:13 36.7 C 80 18 154/80 H 94 Room Air Laboratory Results 10/26/23 06:56 10/26/23 03:31 PG Care Time/CCT Total # of Minutes Spent Total Time Spent with Patient: Total time spent is greater than 50% in coordination of care (as documented) at patient's floor/unit and/or counseling patient: Coding Level of Care Code 56422 SUB INP/OBS CARE 3/50MIN Diagnoses Acute lower GI bleeding K92.2 Anemia D64.9 Anemia type: unspecified type Essential hypertension I10 Diverticulosis K57.90 Type 2 diabetes mellitus E11.9 (2) Anemia Anemia type: unspecified type Qualified Code(s): D64.9 - Anemia, unspecified
--- NOTE | 2023-10-26 13:56 | XRay Report ---
SINGLE VIEW CHEST CLINICAL HISTORY: Preoperative examination. GI bleeding. FINDINGS: An AP, portable, upright chest radiograph is compared to study dated 03/24/2022. The heart i s mildly enlarged noting atherosclerotic calcification of the thoracic aorta. The pulmonary vasculatu re is noncongested. Chronic interstitial thickening similar to previous. Mild scarring/atelectasis is noted at the lung bases. The lungs and pleural spaces are otherwise clear. No pneumothorax is seen. The skeletal structures are osteopenic. The bony thorax is grossly intact. Surgical clips are seen in the right axilla and right breast. IMPRESSION: Mild cardiomegaly with no active disease in the chest. ACT 112: Negative or not required by law. Electronically signed by: Orestes Manuel M.D. 10/26/2023 1:54 PM
[2023-10-26 16:19] LABS: Hemoglobin 9.3 g/dl (12.0-16.0)
[2023-10-27] MEDS: ACETAMINOPHEN 325 MG TAB PO PRN (02:46)
[2023-10-27 06:32] LABS: Basophils % (auto) 0.7 %; Eosinophils % (auto) 2.3 %; Hematocrit (blood only) 27.2 % (37.0-47.0); Hemoglobin 9.2 g/dl (12.0-16.0); Immature Granulocytes % (auto) 0.5 %; Lymphocytes # (auto) 2.07 K/uL (1.20-3.40); Lymphocytes % (auto) 24.3 %; Mean Corpuscular Hemoglobin 29.6 pg (25.0-34.0); Mean Corpuscular Hgb Conc 33.8 g/dL (32.0-36.0); Mean Corpuscular Volume 87.5 fL (80.0-100.0); Mean Platelet Volume 10.2 fL (9.4-12.4); Monocytes # (auto) 0.57 K/uL (0.11-0.59); Monocytes % (auto) 6.7 %; Neutrophils # (auto) 5.59 K/uL (1.40-6.50); Neutrophils % (auto) 65.5 %; Platelet Count 245 K/uL (130-400); RDW Coefficient of Variation 14.2 % (11.5-14.5); RDW Standard Deviation 45.1 fL (36.4-46.3); Red Blood Count 3.11 M/uL (4.20-5.40); White Blood Count 8.53 K/ul (4.8-10.8)
[2023-10-27 06:33] LABS: Basophils # (auto) 0.06 K/uL (0.00-0.20); Immature Granulocytes # (auto) 0.04 K/uL (0.01-0.20)
[2023-10-27 07:27] LABS: BUN Creatinine Ratio 9.5 (10-20); Calcium 8.1 mg/dl (8.6-10.3); Creatinine Clr Calc Pharmacy 67.7 ml/min; Est GFR (African American) 102.4 ml/min; Est GFR (Non-African American) 88.4 ml/min; Potassium 3.4 mmol/L (3.5-5.1)
[2023-10-27] MEDS: NSS + 20MEQ KCL 20 MEQ/1,000 ML BAG IV SCH (10:26)
--- NOTE | 2023-10-27 14:49 | Hospitalist Progress Note ---
Date of Service October 27, 2023 Assessment & Plan (1) Acute lower GI bleeding: Plan: GI consultation appreciated. The patient prefers to have a colonoscopy done while she is here which can be done on Saturday. She will remain on clear liquids. N.p.o. after midnight. Bleeding is probably of diverticular origin. Serial labs ordered. Continue IV fluids. (2) Anemia: Plan: Mild acute blood loss anemia on admission. Hemoglobin slightly low but stable. No indication for transfusion at this time. (3) Essential hypertension: Plan: Currently stable. Continue current medical management (4) Diverticulosis: Plan: Longtime history of colonic diverticulosis. Likely source of lower GI bleeding. No indication of acute diverticulitis on CT scan. Unasyn has been discontinued. (5) Type 2 diabetes mellitus: Plan: Sliding scale insulin for now. Oral medications are on hold Plan Colonoscopy tomorrowOctober 27. Hopefully, discharge shortly thereafter Admission and Anticipated Discharge Date Admission Date: October 25, 2023 Subjective Alert and oriented. Hemoglobin stable at 9.2. Potassium is mildly low and potassium has been added to the IV fluids. Will repeat hemoglobin level again at 6 PM today. GI consultation appreciated. Colonoscopy tomorrowOctober 27 Review of Systems 2 Review of Systems: Constitutionalno fever or chills ENTno blurred vision, no double vision, no epistaxis, no sore throat Respiratoryno cough, no wheezing, no shortness of breath Cardiacno palpitations, no chest pain, no syncope Alecia nausea, vomiting, diarrhea, melena. Recent onset of hematochezia and passing clots GUno urinary retention, no urinary incontinence, no dysuria, no hematuria Musculoskeletalno joint pain, no muscle tenderness Skinno bruising, no rashes, no pruritus Neurono isolated weakness, no paresthesia, no weakness. No syncope Psychno depression, no anxiety Physical Exam 2 Physical Exam: General-alert and oriented x3, no fever, no chills HEENT-head atraumatic and normocephalic, pupils equal and reactive to light, extraocular muscles intact Neck-no lymphadenopathy or thyromegaly, trachea midline Chest-clear to auscultation. No rales, wheezing or rhonchi Cardiac-regular rate and rhythm, normal S1 and S2 Abdomen-normal bowel sounds, no hepatosplenomegaly. Mild tenderness in the left midabdomen and left lower quadrant areas. No rebound or guarding. No masses Extremities-no cyanosis, clubbing, or edema Neuro-cranial nerves II through XII intact, motor and sensory function within normal limits, strength symmetrical, no focal deficits Psych-normal affect, normal mood Results & Data Results & Data Vital Signs (Past 12 Hours) Vital Signs Temp Pulse Pulse Resp BP Pulse Ox O2 Del Method 10/27/23 11:15 36.7 C 73 16 163/90 H 94 Room Air 10/27/23 08:15 66 10/27/23 07:58 36.8 C 80 18 182/78 H 96 Room Air Laboratory Results 10/27/23 06:06 10/27/23 06:06 PG Care Time/CCT Total # of Minutes Spent Total Time Spent with Patient: Total time spent is greater than 50% in coordination of care (as documented) at patient's floor/unit and/or counseling patient: Coding Level of Care Code 58895 SUB INP/OBS CARE 3/50MIN Diagnoses Acute lower GI bleeding K92.2 Anemia D64.9 Anemia type: unspecified type Essential hypertension I10 Diverticulosis K57.90 Type 2 diabetes mellitus E11.9 (2) Anemia Anemia type: unspecified type Qualified Code(s): D64.9 - Anemia, unspecified
[2023-10-27] MEDS: POLYETHYLENE (MIRALAX) 17 GM PACK PO SCH (17:18)
[2023-10-27 18:28] LABS: Hematocrit (blood only) 28.5 % (37.0-47.0); Hemoglobin 9.3 g/dl (12.0-16.0)
[2023-10-27] MEDS ORDERED: Nursing to Pharmacy Communication SCH (21:45)
[2023-10-28 06:16] LABS: Basophils # (auto) 0.05 K/uL (0.00-0.20); Basophils % (auto) 0.5 %; Eosinophils # (auto) 0.27 K/uL (0.00-0.50); Eosinophils % (auto) 2.7 %; Hematocrit (blood only) 30.5 % (37.0-47.0); Hemoglobin 10.1 g/dl (12.0-16.0); Immature Granulocytes # (auto) 0.03 K/uL (0.01-0.20); Immature Granulocytes % (auto) 0.3 %; Lymphocytes # (auto) 2.16 K/uL (1.20-3.40); Lymphocytes % (auto) 21.6 %; Mean Corpuscular Hgb Conc 33.1 g/dL (32.0-36.0); Mean Corpuscular Volume 87.6 fL (80.0-100.0); Mean Platelet Volume 10.1 fL (9.4-12.4); Monocytes # (auto) 0.63 K/uL (0.11-0.59); Monocytes % (auto) 6.3 %; Neutrophils # (auto) 6.85 K/uL (1.40-6.50); Neutrophils % (auto) 68.6 %; Platelet Count 288 K/uL (130-400); RDW Coefficient of Variation 14.2 % (11.5-14.5); RDW Standard Deviation 45.5 fL (36.4-46.3); Red Blood Count 3.48 M/uL (4.20-5.40); White Blood Count 9.99 K/ul (4.8-10.8)
[2023-10-28 06:29] LABS: BUN Creatinine Ratio 6.7 (10-20); Calcium 8.5 mg/dl (8.6-10.3); Est GFR (African American) 104.1 ml/min; Est GFR (Non-African American) 89.8 ml/min; Potassium 3.5 mmol/L (3.5-5.1)
--- NOTE | 2023-10-28 09:29 | History & Physical Bridge Note ---
Date of Service October 28, 2023 History & Physical Bridge Note I have examined the patient, reviewed the History & Physical and in the interval since the performance of the History & Physical I have noted the following changes of clinical significance: no changes noted. 73 year old female with history of T2DM, SCOTT, HTN, asthma, anxiety and others below admitted with rectal bleeding. suspected to be diverticular. She has had no further bleeding over the weekend. she finished most of her colonoscopy prep and her stools have been coming out clear. she denies any SOB, chest pain or other GI concerns. she has been NPO. will plan to proceed with colonoscopy today. Supervising Physician Co-Signing Physician Notes I saw and examined this patient with our nurse practitioner and agree with her assessment and plan. Bleeding has stopped probable diverticular bleed. Will proceed with colonoscopy for further evaluation.
[2023-10-28] MEDS: SODIUM CHLORIDE 0.9% 500 ML IV SCH (13:59)
--- NOTE | 2023-10-28 14:28 | Anesthesiology Consultation ---
Date of Service October 28, 2023 Assessment & Plan ASA ASA3 Proposed Anesthesia Anesthesia Type: MAC Risk / Benefits Reviewed With: PT / POA / Parent / Guardian, Accepts Plan and Informed Consent Obtained History Surgery Operation Date: 10/28/23 17:10 Proposed Procedures p Colonoscopy Dr. Ramón Melgar MD Height/Weight Height: 5 ft 4 in Weight: 60.6 kg Allergies Allergy/AdvReac Type Severity Reaction Status Date / Time blue dye Allergy Severe "THROAT Verified 10/28/23 13:54 CLOSED UP AND TERRIBLE HEADACHE" fesoterodine Allergy Severe "THROAT Verified 10/28/23 13:54 CLOSED UP AND TERRIBLE HEADACHE" lecithin,egg Allergy Severe "THROAT Verified 10/28/23 13:54 CLOSED UP AND TERRIBLE HEADACHE" midazolam Allergy Severe CENTRAL Verified 10/28/23 13:54 NERVOUS REACTION "ACTING OUT" peanut Allergy Severe ANAPLYLAXIS Verified 10/28/23 13:54 chocolate flavor Allergy Intermediate RASH Verified 10/28/23 13:54 diltiazem [From Cardizem] Allergy Intermediate PT STATES Verified 10/28/23 13:54 "EITHER BODY ACHES OR UPSET STOMACH". metoprolol [From Toprol XL] Allergy Intermediate PT STATES Verified 10/28/23 13:54 "EITHER BODY ACHES OR UPSET STOMACH". adhesive tape Allergy Mild localized Verified 10/28/23 13:54 rash KADIE Inhibitors Allergy Unknown UNKNOWN Verified 10/28/23 13:54 Beta-Blockers Allergy Unknown UNKNOWN Verified 10/28/23 13:54 (Beta-Adrenergic Bloc codeine Allergy Unknown Unknown Verified 10/28/23 13:54 gentamicin Allergy Unknown unknown Verified 10/28/23 13:54 zolpidem Allergy Unknown UNKNOWN Verified 10/28/23 13:54 caffeine AdvReac Severe HYPERACTIVI Verified 10/28/23 13:54 TY [id number] Reductase AdvReac Severe Diffuse Verified 10/28/23 13:54 Inhibitor myalgias, myopathy corn AdvReac Intermediate HEADACHE Verified 10/28/23 13:54 dulaglutide [From Trulicity] AdvReac Intermediate abdominal Verified 10/28/23 13:54 discomfort metformin AdvReac Intermediate abdominal Verified 10/28/23 13:54 discomfort Medications Home Medications Medication Instructions Recorded Confirmed Last Taken calcium carbonate (Calcium 600) 600 mg PO BID 09/25/18 10/25/23 10/24/23 trazodone 50 mg tablet 50 mg PO HS PRN sleep 09/25/18 10/25/23 10/24/23 citalopram 20 mg tablet 20 mg PO HS 03/10/20 10/25/23 10/24/23 melatonin 5 mg tablet 5 mg PO HS 08/27/20 10/25/23 10/24/23 lancets ([facility] UltraSoft #100 ea 08/29/20 10/22/23 Unknown Lancets) cholecalciferol (vitamin D3) 50 2,000 unit PO BID 11/09/20 10/25/23 10/24/23 mcg (2,000 unit) capsule lancets 33 [facility] ([facility] 10/02/21 10/22/23 Unknown Lancets) diltiazem HCl 360 mg 360 mg PO QAM hypertension #90 caps 12/25/22 10/25/23 10/24/23 capsule,extended release 24 hr losartan 100 mg tablet 100 mg PO QAM #90 tabs 01/17/23 10/25/23 10/24/23 blood sugar diagnostic ([facility] 03/14/23 10/22/23 Unknown Verio test strips) gabapentin 100 mg capsule 200 mg (2 x 100 mg) PO BID 90 days 08/16/23 10/25/23 10/24/23 #360 caps evolocumab 140 mg/mL subcutaneous 140 mg subcut .every two weeks #2 08/18/23 10/25/23 10/13/23 pen injector (Chana Sheppard) mL sitagliptin phosphate 100 mg 100 mg PO HS #90 tabs 09/09/23 10/25/23 10/24/23 tablet (Januvia) omeprazole 20 mg capsule,delayed 20 mg PO DAILY gerd #90 caps 10/08/23 10/25/23 10/24/23 release prednisone 10 mg tablets in a dose See Rx Instructions PO .COMPLEX 10/22/23 10/25/23 10/24/23 pack #21 ea Active Medications Generic Name Dose Route Start Last Admin Trade Name Freq PRN Reason Stop Dose Admin Acetaminophen 650 mg 10/25/23 08:59 10/27/23 02:46 Acetaminophen 325 Mg Tab PO 11/24/23 08:59 650 mg Q6H PRN Administration Fever or headache Citalopram Hydrobromide 20 mg 10/25/23 21:00 10/27/23 20:32 Citalopram 20 Mg Tab PO 11/24/23 20:59 20 mg HS ESPERANZA Administration Diltiazem HCl 360 mg 10/26/23 09:00 10/28/23 07:43 Diltiazem Hcl 180 Mg Capcr PO 11/25/23 08:59 360 mg QAM ESPERANZA Administration Gabapentin 200 mg 10/25/23 15:06 10/28/23 07:41 Gabapentin 100 Mg Cap PO 11/24/23 15:05 200 mg BID ESPERANZA Administration Potassium Chloride/Sodium Chloride 20 meq in 1,000 mls @ 80 mls/hr 10/27/23 09:45 10/28/23 09:43 Normal Saline W/20 Meq Kcl IV 11/26/23 09:44 80 mls/hr .[id number] ESPERANZA Administration Protocol Sodium Chloride 500 mls @ 15 mls/hr 10/28/23 07:30 10/28/23 13:59 Nss IV 10/29/23 07:29 15 mls/hr .Q24H ESPERANZA Administration Insulin Aspart 0 units 10/25/23 15:06 10/28/23 12:31 Insulin Aspart Per Unit Charge SC 11/24/23 15:05 Not Given ACHS ESPERANZA Losartan Potassium 100 mg 10/25/23 15:15 10/28/23 07:42 Losartan Potassium 50 Mg Tab PO 11/24/23 15:14 100 mg QAM ESPERANZA Administration Melatonin 6 mg 10/25/23 21:00 10/27/23 20:32 Melatonin 3 Mg Tab PO 11/24/23 20:59 6 mg HS ESPERANZA Administration Pantoprazole Sodium 40 mg 10/25/23 09:00 10/28/23 07:41 Pantoprazole 40 Mg Tab PO 11/24/23 08:59 40 mg DAILY ESPERANZA Administration NPO Date Last Intake of Fluids: 10/28/23 Time Last Intake of Fluids: 09:00 Date Last Intake of Solids: 10/24/23 Time Last Intake of Solids: 21:00 Past Medical History Medical History COVID-19 Otitis externa of right ear Diverticulosis of intestine Breast cancer Asthma Hypertension Diabetes Anxiety Lower GI bleed (2017) Hyperparathyroidism Exercise / Class Metabolic Activity II 4-5 Yardwork/Stairs/Walk up hill Past Family History Family History Mother Diabetes Hypertension Breast cancer Father Emphysema/COPD Stroke syndrome Coronary heart disease Unknown Cancer Stroke syndrome Heart disease Pulmonary embolism Denies family history of Ovarian cancer Prostate cancer Colorectal cancer Past Surgical History Surgical History Hx of blepharoplasty S/P cataract extraction Bilateral cataract surgery 2019 History of hysterectomy History of lumpectomy History of sinus surgery History of colonoscopy H/O: H/O oral surgery Past Anesthesia History No Hx of Anesthesia Complications and No Family Hx of Anesthesia Complications History of PONV No Hx of PONV and No Hx of Motion Sickness Social History Smoking Status: Never smoker Do You Dip or Chew Tobacco: No Hx Alcohol Use: No Hx Substance Use: No substance use type: does not use Physical Exam Vital Signs Last Vital Signs Temp 36.7 C 10/28/23 13:55 Pulse 93 H 10/28/23 13:55 Resp 16 10/28/23 13:55 BP 178/82 H 10/28/23 14:00 Pulse Ox 97 10/28/23 13:55 O2 Del Method Room Air 10/28/23 13:55 Constitutional no acute distress ENMT Mouth: + dentition abnormality, + poor dentition (multiple missing teeth, some decayed) and + small oral opening; no loose teeth Thyromental Distance: > or= 3.5 Finger Breadths Mallampati Class: III Neck normal visual inspection Respiratory normal respiratory effort; no respiratory distress Auscultation: lungs clear to auscultation bilaterally Cardiovascular Rate/Rhythm: regular rate and regular rhythm Heart Sounds: no murmur Musculoskeletal Spine: normal cervical ROM Psychiatric Orientation: alert and oriented x 3 Testing Laboratory Results 10/28/23 05:29 10/28/23 05:29 PT 9.8 Seconds (9.0-12.0) 10/25/23 05:40 INR 0.9 (0.9-1.1) 10/25/23 05:40 APTT < 20 Seconds (21-31) L 10/25/23 05:40 Urine Color Yellow 10/25/23 06:28 Urine Appearance Clear (Clear) 10/25/23 06:28 Urine pH 5.0 (4.5-7.5) 10/25/23 06:28 Ur Specific [place] 1.027 (1.000-1.030) 10/25/23 06:28 Urine Protein Negative (Negative) 10/25/23 06:28 Urine Glucose (UA) Negative (Negative) 10/25/23 06:28 Urine Ketones Negative (Negative) 10/25/23 06:28 Urine Nitrite Negative (Negative) 10/25/23 06:28 Ur Leukocyte Esterase 2+ (Negative) H 10/25/23 06:28 Urine WBC (Auto) 11-20 /hpf (0-5) H 10/25/23 06:28 Urine RBC (Auto) 0-2 /hpf (0-2) 10/25/23 06:28 U Hyaline Cast (Auto) 6-10 /lpf (0-2) H 10/25/23 06:28 U Epithel Cells (Auto) 6-10 /hpf (0-2) H 10/25/23 06:28 Urine Bacteria (Auto) None Seen (None Seen) 10/25/23 06:28 Blood Type A Positive 10/25/23 06:38 Antibody Screen NEGATIVE 10/25/23 06:38 10/25/23 06:28 Urine Culture - Final Urine,Clean Catch More than three types of organisms present, all high counts mixed probable skin blake - No further identifications or sensitivities to follow. 10/28/23 10/28/23 12:17 08:00 POC Glucose 115 H 124 H Day of Procedure Evaluation. Date of Surgery October 28, 2023 Height/Weight Height: 5 ft 4 in Weight: 60.6 kg Vital Signs Last Vital Signs Temp 36.7 C 10/28/23 13:55 Pulse 93 H 10/28/23 13:55 Resp 16 10/28/23 13:55 BP 178/82 H 10/28/23 14:00 Pulse Ox 97 10/28/23 13:55 O2 Del Method Room Air 10/28/23 13:55 Allergies Allergy/AdvReac Type Severity Reaction Status Date / Time blue dye Allergy Severe "THROAT Verified 10/28/23 13:54 CLOSED UP AND TERRIBLE HEADACHE" fesoterodine Allergy Severe "THROAT Verified 10/28/23 13:54 CLOSED UP AND TERRIBLE HEADACHE" lecithin,egg Allergy Severe "THROAT Verified 10/28/23 13:54 CLOSED UP AND TERRIBLE HEADACHE" midazolam Allergy Severe CENTRAL Verified 10/28/23 13:54 NERVOUS REACTION "ACTING OUT" peanut Allergy Severe ANAPLYLAXIS Verified 10/28/23 13:54 chocolate flavor Allergy Intermediate RASH Verified 10/28/23 13:54 diltiazem [From Cardizem] Allergy Intermediate PT STATES Verified 10/28/23 13:54 "EITHER BODY ACHES OR UPSET STOMACH". metoprolol [From Toprol XL] Allergy Intermediate PT STATES Verified 10/28/23 13:54 "EITHER BODY ACHES OR UPSET STOMACH". adhesive tape Allergy Mild localized Verified 10/28/23 13:54 rash KADIE Inhibitors Allergy Unknown UNKNOWN Verified 10/28/23 13:54 Beta-Blockers Allergy Unknown UNKNOWN Verified 10/28/23 13:54 (Beta-Adrenergic Bloc codeine Allergy Unknown Unknown Verified 10/28/23 13:54 gentamicin Allergy Unknown unknown Verified 10/28/23 13:54 zolpidem Allergy Unknown UNKNOWN Verified 10/28/23 13:54 caffeine AdvReac Severe HYPERACTIVI Verified 10/28/23 13:54 TY [id number] Reductase AdvReac Severe Diffuse Verified 10/28/23 13:54 Inhibitor myalgias, myopathy corn AdvReac Intermediate HEADACHE Verified 10/28/23 13:54 dulaglutide [From Trulicity] AdvReac Intermediate abdominal Verified 10/28/23 13:54 discomfort metformin AdvReac Intermediate abdominal Verified 10/28/23 13:54 discomfort Medications Home Medications Medication Instructions Recorded Confirmed Last Taken calcium carbonate (Calcium 600) 600 mg PO BID 09/25/18 10/25/23 10/24/23 trazodone 50 mg tablet 50 mg PO HS PRN sleep 09/25/18 10/25/23 10/24/23 citalopram 20 mg tablet 20 mg PO HS 03/10/20 10/25/23 10/24/23 melatonin 5 mg tablet 5 mg PO HS 08/27/20 10/25/23 10/24/23 lancets ([facility] UltraSoft #100 ea 08/29/20 10/22/23 Unknown Lancets) cholecalciferol (vitamin D3) 50 2,000 unit PO BID 11/09/20 10/25/23 10/24/23 mcg (2,000 unit) capsule lancets 33 gauge ([facility]ica #100 ea 10/02/21 10/22/23 Unknown Lancets) diltiazem HCl 360 mg 360 mg PO QAM hypertension #90 caps 12/25/22 10/25/23 10/24/23 capsule,extended release 24 hr losartan 100 mg tablet 100 mg PO QAM #90 tabs 01/17/23 10/25/23 10/24/23 blood sugar diagnostic ([facility] 03/14/23 10/22/23 Unknown Verio test strips) gabapentin 100 mg capsule 200 mg (2 x 100 mg) PO BID 90 days 08/16/23 10/25/23 10/24/23 #360 caps evolocumab 140 mg/mL subcutaneous 140 mg subcut .every two weeks #2 08/18/23 10/25/23 10/13/23 pen injector (Chana Sheppard) mL sitagliptin phosphate 100 mg 100 mg PO HS #90 tabs 09/09/23 10/25/23 10/24/23 tablet (Januvia) omeprazole 20 mg capsule,delayed 20 mg PO DAILY gerd #90 caps 10/08/23 10/25/23 10/24/23 release prednisone 10 mg tablets in a dose See Rx Instructions PO .COMPLEX 10/22/23 10/25/23 10/24/23 pack #21 ea Active Medications Generic Name Dose Route Start Last Admin Trade Name Freq PRN Reason Stop Dose Admin Acetaminophen 650 mg 10/25/23 08:59 10/27/23 02:46 Acetaminophen 325 Mg Tab PO 11/24/23 08:59 650 mg Q6H PRN Administration Fever or headache Citalopram Hydrobromide 20 mg 10/25/23 21:00 10/27/23 20:32 Citalopram 20 Mg Tab PO 11/24/23 20:59 20 mg HS ESPERANZA Administration Diltiazem HCl 360 mg 10/26/23 09:00 10/28/23 07:43 Diltiazem Hcl 180 Mg Capcr PO 11/25/23 08:59 360 mg QAM ESPERANZA Administration Gabapentin 200 mg 10/25/23 15:06 10/28/23 07:41 Gabapentin 100 Mg Cap PO 11/24/23 15:05 200 mg BID ESPERANZA Administration Potassium Chloride/Sodium Chloride 20 meq in 1,000 mls @ 80 mls/hr 10/27/23 09:45 10/28/23 09:43 Normal Saline W/20 Meq Kcl IV 11/26/23 09:44 80 mls/hr .[id number] ESPERANZA Administration Protocol Sodium Chloride 500 mls @ 15 mls/hr 10/28/23 07:30 10/28/23 13:59 Nss IV 10/29/23 07:29 15 mls/hr .Q24H ESPERANZA Administration Insulin Aspart 0 units 10/25/23 15:06 10/28/23 12:31 Insulin Aspart Per Unit Charge SC 11/24/23 15:05 Not Given ACHS ESPERANZA Losartan Potassium 100 mg 10/25/23 15:15 10/28/23 07:42 Losartan Potassium 50 Mg Tab PO 11/24/23 15:14 100 mg QAM ESPERANZA Administration Melatonin 6 mg 10/25/23 21:00 10/27/23 20:32 Melatonin 3 Mg Tab PO 11/24/23 20:59 6 mg HS ESPERANZA Administration Pantoprazole Sodium 40 mg 10/25/23 09:00 10/28/23 07:41 Pantoprazole 40 Mg Tab PO 11/24/23 08:59 40 mg DAILY ESPERANZA Administration Past Anesthesia History No Hx of Anesthesia Complications and No Family Hx of Anesthesia Complications History of PONV No Hx of PONV and No Hx of Motion Sickness NPO Date Last Intake of Fluids: 10/28/23 Time Last Intake of Fluids: 09:00 Date Last Intake of Solids: 10/24/23 Time Last Intake of Solids: 21:00 HCG & FBG Results 10/28/23 10/28/23 12:17 08:00 POC Glucose 115 H 124 H Home Medications Home Medications Medication Instructions Recorded Confirmed Last Taken calcium carbonate (Calcium 600) 600 mg PO BID 09/25/18 10/25/23 10/24/23 trazodone 50 mg tablet 50 mg PO HS PRN sleep 09/25/18 10/25/23 10/24/23 citalopram 20 mg tablet 20 mg PO HS 03/10/20 10/25/23 10/24/23 melatonin 5 mg tablet 5 mg PO HS 08/27/20 10/25/23 10/24/23 lancets ([facility] UltraSoft #100 ea 08/29/20 10/22/23 Unknown Lancets) cholecalciferol (vitamin D3) 50 2,000 unit PO BID 11/09/20 10/25/23 10/24/23 mcg (2,000 unit) capsule lancets 33 gauge ([facility] #100 ea 10/02/21 10/22/23 Unknown Lancets) diltiazem HCl 360 mg 360 mg PO QAM hypertension #90 caps 12/25/22 10/25/23 10/24/23 capsule,extended release 24 hr losartan 100 mg tablet 100 mg PO QAM #90 tabs 01/17/23 10/25/23 10/24/23 blood sugar diagnostic ([facility] #100 ea 03/14/23 10/22/23 Unknown Verio test strips) gabapentin 100 mg capsule 200 mg (2 x 100 mg) PO BID 90 days 08/16/23 10/25/23 10/24/23 #360 caps evolocumab 140 mg/mL subcutaneous 140 mg subcut .every two weeks #2 08/18/23 10/25/23 10/13/23 pen injector (Chana Sheppard) mL sitagliptin phosphate 100 mg 100 mg PO HS #90 tabs 09/09/23 10/25/23 10/24/23 tablet (Januvia) omeprazole 20 mg capsule,delayed 20 mg PO DAILY gerd #90 caps 10/08/23 10/25/23 10/24/23 release prednisone 10 mg tablets in a dose See Rx Instructions PO .COMPLEX 10/22/23 10/25/23 10/24/23 pack #21 ea Active Medications Generic Name Dose Route Start Last Admin Trade Name Freq PRN Reason Stop Dose Admin Acetaminophen 650 mg 10/25/23 08:59 10/27/23 02:46 Acetaminophen 325 Mg Tab PO 11/24/23 08:59 650 mg Q6H PRN Administration Fever or headache Citalopram Hydrobromide 20 mg 10/25/23 21:00 10/27/23 20:32 Citalopram 20 Mg Tab PO 11/24/23 20:59 20 mg HS ESPERANZA Administration Diltiazem HCl 360 mg 10/26/23 09:00 10/28/23 07:43 Diltiazem Hcl 180 Mg Capcr PO 11/25/23 08:59 360 mg QAM ESPERANZA Administration Gabapentin 200 mg 10/25/23 15:06 10/28/23 07:41 Gabapentin 100 Mg Cap PO 11/24/23 15:05 200 mg BID ESPERANZA Administration Potassium Chloride/Sodium Chloride 20 meq in 1,000 mls @ 80 mls/hr 10/27/23 09:45 10/28/23 09:43 Normal Saline W/20 Meq Kcl IV 11/26/23 09:44 80 mls/hr .[id number] ESPERANZA Administration Protocol Sodium Chloride 500 mls @ 15 mls/hr 10/28/23 07:30 10/28/23 13:59 Nss IV 10/29/23 07:29 15 mls/hr .Q24H ESPERANZA Administration Insulin Aspart 0 units 10/25/23 15:06 10/28/23 12:31 Insulin Aspart Per Unit Charge SC 11/24/23 15:05 Not Given ACHS ESPERANZA Losartan Potassium 100 mg 10/25/23 15:15 10/28/23 07:42 Losartan Potassium 50 Mg Tab PO 11/24/23 15:14 100 mg QAM ESPERANZA Administration Melatonin 6 mg 10/25/23 21:00 10/27/23 20:32 Melatonin 3 Mg Tab PO 11/24/23 20:59 6 mg HS ESPERANZA Administration Pantoprazole Sodium 40 mg 10/25/23 09:00 10/28/23 07:41 Pantoprazole 40 Mg Tab PO 11/24/23 08:59 40 mg DAILY ESPERANZA Administration Exercise / Class Metabolic Activity Metabolic Activity: II 4-5 Yardwork/Stairs/Walk up hill Physical Exam Constitutional: no acute distress Mouth: + dentition abnormality, + poor dentition (multiple missing teeth, some decayed) and + small oral opening; no loose teeth Thyromental Distance: > or= 3.5 Finger Breadths Mallampati Class: III Neck: + visual inspection normal Respiratory: + respiratory effort normal and + clear to auscultation bilaterally; no respiratory distress Cardiovascular: + regular rate and + regular rhythm; no murmur Musculoskeletal: no limited cervical ROM Psychiatric: + alert and + oriented x 3 ASA ASA3 Proposed Anesthesia Proposed Anesthesia: MAC Risk / Benefits Reviewed With: PT / POA / Parent / Guardian, Accepts Plan and Informed Consent Obtained
--- NOTE | 2023-10-28 14:52 | GI REPORT ---
[facility] Patient: DEE SHAW : 1950 Sex at : Female Age: 73 Years Procedure: Colonoscopy Date: 10/28/2023 Attending Physician: Jarrod Melgar MD Referring MD: Hernan Barney Do Indications: - Evaluation of unexplained GI bleeding presenting with Hematochezia Medications: - Monitored Anesthesia Care Complications: - No immediate complications. Procedure: - Prior to the procedure, a History and Physical was performed, and patient medications and allergies were reviewed. The patient's tolerance of previous anesthesia was also reviewed. The risks and benefits of the procedure and the sedation options and risks were discussed with the patient. All questions were answered, and informed consent was obtained. [Anticoagulant Agents] [Days Prior to Procedure]. [ASA Grade]. After reviewing the risks and benefits, the patient was deemed in satisfactory condition to undergo the procedure. - The adult colonoscope was introduced through the anus and advanced to the terminal ileum, with identification of the appendiceal orifice and ileocecal valve. - The colonoscopy was performed without difficulty. - The patient tolerated the procedure well. - The quality of the bowel preparation was good. Findings: - Multiple diverticula were found in the entire colon. - The exam was otherwise without abnormality. - The terminal ileum appeared normal. Impression: - Diverticulosis in the entire examined colon. - The examination was otherwise normal. - The examined portion of the ileum was normal. - No specimens collected. Recommendation: - Resume previous diet. - Patient has a contact number available for emergencies. The signs and symptoms of potential delayed complications were discussed with the patient. Return to normal activities tomorrow. Written discharge instructions were provided to the patient. Procedure Code(s): - 61889, Colonoscopy, flexible; diagnostic, including collection of specimen(s) by brushing or washing, when performed (separate procedure) Diagnosis Code(s): - K92.1, Melena (includes Hematochezia) - K57.30, Diverticulosis of large intestine without perforation or abscess without bleeding CPT(R) - 2023 copyright [employer]. All Rights Reserved. The CPT codes, CCI edits and ICD codes generated are intended as suggestions and were generated based on input data. These codes are preliminary and upon [employer]rix lead review may be revised to meet current compliance and payer requirements. The provider is responsible for the final determination of appropriate codes, and modifiers. Jarrod Melgar MD This document has been electronically signed. Note Initiated:10/28/2023 Note Completed:10/28/2023 2:51 PM [id number]
[2023-10-28 16:26] VITALS: RESP 18
--- NOTE | 2023-10-28 16:31 | Hospitalist Progress Note ---
Date of Service October 28, 2023 Assessment & Plan (1) Acute lower GI bleeding: Plan: -GI consultation appreciated. -Colonoscopy for today 10/28/23: -NPO pending procedure -IV fluids pending procedure -Addendum:Post procedure noted nausea- but improving with po intake -Bleeding likely diverticular origin per colonoscopy findings (2) Anemia: Plan: -Mild acute blood loss anemia on admission. -Hemoglobin slightly low but stable -Continue to monitor closely -No further bleeding noted -Iron panel reviewed- can consider po iron supplement as an outpatient (3) Essential hypertension: Plan: -Noted slight elevation- will monitor trend and titrate accordingly -Continue current medical management (4) Diverticulosis: Plan: -Longtime history of colonic diverticulosis. Likely source of lower GI bleeding. No indication of acute diverticulitis on CT scan. Unasyn has been discontinued. -Colonoscopy- consistent with divertculosis (5) Type 2 diabetes mellitus: Plan: -Continue sliding scale insulin for now. Oral medications are on hold Plan Plan initially for DC post colonoscopy but patient with some nausea for anesthesia. She does not have extensive help at home. She takes care of her . Will monitor overnight with plans for early AM DC for safety. Admission and Anticipated Discharge Date Admission Date: October 25, 2023 Subjective Patient seen and evaluated bedside this AM and in the afternoon Patient is currently in in NAD Patient denies any abdominal pain at present For colonoscopy today- seen again post colonoscopy- overall feels well Without further blood noted in stool Review of Systems Review of Systems: As indicate in HPI Physical Exam Physical Exam: General-alert and oriented x3, no fever, no chills HEENT-head atraumatic and normocephalic, extraocular muscles intact Neck-no lymphadenopathy or thyromegaly, trachea midline Chest-clear to auscultation. No rales, wheezing or rhonchi Cardiac-regular rate and rhythm, normal S1 and S2 Abdomen-normal bowel sounds, no hepatosplenomegaly. Abdominal tenderness resolved. No rebound or guarding. No masses Extremities-no cyanosis, clubbing, or edema Neuro-cranial nerves II through XII intact, motor and sensory function within normal limits, strength symmetrical, no focal deficits Psych-normal affect, normal mood Results & Data Results & Data Vital Signs (Past 12 Hours) Vital Signs Temp Pulse Pulse Resp BP Pulse Ox O2 Del Method 10/28/23 15:21 70 16 162/80 H 96 Room Air 10/28/23 15:06 78 16 161/79 H 96 Room Air 10/28/23 14:51 67 16 116/70 97 Room Air 10/28/23 14:50 84 10/28/23 14:00 178/82 H 10/28/23 13:55 36.7 C 93 H 16 191/82 H 97 Room Air 10/28/23 11:48 36.8 C 81 18 175/91 H 98 Room Air 10/28/23 09:44 175/86 H 10/28/23 08:20 36.7 C 72 18 176/90 H 97 Room Air 10/28/23 08:16 81 PG Care Time/CCT Total # of Minutes Spent Total Time Spent with Patient: Total time spent is greater than 50% in coordination of care (as documented) at patient's floor/unit and/or counseling patient: Coding Level of Care Code 78571 SUB INP/OBS CARE 2/35MIN Diagnoses Acute lower GI bleeding K92.2 Anemia D64.9 Anemia type: unspecified type Essential hypertension I10 Diverticulosis K57.90 Type 2 diabetes mellitus E11.9 (2) Anemia Anemia type: unspecified type Qualified Code(s): D64.9 - Anemia, unspecified
[2023-10-28] MEDS: PROPOFOL IV EMULSION 10 MG/ML 20 ML VIAL IV ONE (16:46)
[2023-10-28] MEDS: LIDOCAINE 2% 2 ML VIAL/AMP(20MG/ML) INFIL ONE (16:46)
[2023-10-28] MEDS: traZODone HCL 50 MG TAB PO PRN (20:46)
[2023-10-29 07:46] VITALS: TEMP 97.9
--- NOTE | 2023-10-29 10:47 | Discharge Summary ---
Discharge Summary Date of Service October 29, 2023 Principal Dx & Hospital Course #1 = Principal Diagnosis (1) Acute lower GI bleeding: -GI consultation appreciated. -Colonoscopy on 10/28/23: -NPO pending procedure -Bleeding likely diverticular origin per colonoscopy findings -Patient cleared from GI prospective (2) Anemia: -Mild acute blood loss anemia on admission. -Hemoglobin slightly low but stable -No further bleeding noted during hospitalization. (3) Essential hypertension: -Continued home medical management (4) Diverticulosis: -Longtime history of colonic diverticulosis. Likely source of lower GI bleeding. No indication of acute diverticulitis on CT scan. Unasyn was discontinued. -Colonoscopy- consistent with diverticulosis (5) Type 2 diabetes mellitus: -Continued on sliding scale insulin for now. -Oral medications held as an inpatient Notes For Next Care Provider Patient presenting with lower GI bleed. Patient was evaluated by GI. Underwent colonoscopy. Findings likely 2/2 to diverticulosis. No active bleed noted on colonoscopy. Plan for outpatient GI follow up. No further bleeding noted during hospitalization. Admission HPI Per Admitting Provider 73-year-old white female with several days of lower GI bleeding and passing clots. She has a history of diverticulosis and previously had a GI bleed. CT scan done on admission reveals colonic diverticulosis. She does have left lower quadrant discomfort but there is no evidence of acute diverticulitis. Nevertheless, she is transiently on intravenous Unasyn. Clear liquids for now with IV fluids and serial labs. GI consultation requested. Discharge Exam General-alert and oriented x3, no fever, no chills HEENT-head atraumatic and normocephalic, extraocular muscles intact Neck-no lymphadenopathy or thyromegaly, trachea midline Chest-clear to auscultation. No rales, wheezing or rhonchi Cardiac-regular rate and rhythm, normal S1 and S2 Abdomen-normal bowel sounds, no hepatosplenomegaly. Abdominal tenderness resolved. No rebound or guarding. No masses Extremities-no cyanosis, clubbing, or edema Neuro-cranial nerves II through XII intact, motor and sensory function within normal limits, strength symmetrical, no focal deficits Psych-normal affect, normal mood Discharge Plan Discharge Items Patient Disposition: Home - Self-Care Reason For Visit: LGIB Discharge Diagnosis: Diverticulosis Activity: Resume your previous activity Non-emergency contact: Primary Care Provider and Presentation Specialist Call non-emergency contact if: you have any medication questions, your symptoms worsen and you have a fever Follow-up/Referrals: Hernan Barney DO [Primary Care Provider] - 11/08/23 1:00 pm Diet: Heart Healthy Addtl Attending Provider Instructions: Please follow up with Primary Care Provider and Presentation Specialist as discussed. Pending Studies at Discharge: No Stand-Alone Forms: My [facility] Bubbles, Smoking Cessation Medications and DC Order Prescriptions: Continued (DME) lancets [OneTouch UltraSoft Lancets] Misc See Rx Instructions .ROUTE .MEDSUPPLY Qty: 100 3RF Rx Instructions: Test once daily (DME) lancets [OneTouch Delica Lancets] 33 gauge misc See Rx Instructions .Route Qty: 100 3RF Rx Instructions: Test once daily diltiazem HCl 360 mg capsule,extended release 24hr 360 mg PO QAM Qty: 90 3RF losartan 100 mg tablet 100 mg PO QAM Qty: 90 3RF Rx Instructions: TAKE 1 TABLET BY MOUTH EVERY MORNING (DME) OneTouch Verio test strips Strip See Rx Instructions .ROUTE .MEDSUPPLY Qty: 100 3RF Rx Instructions: Test once daily Repatha SureClick 140 mg/mL pen injector 140 mg subcut .every two weeks Qty: 2 11RF Rx Instructions: Saturday Januvia 100 mg tablet 100 mg PO HS Qty: 90 3RF omeprazole 20 mg capsule,delayed release(DR/EC) 20 mg PO DAILY Qty: 90 3RF citalopram 20 mg tablet 20 mg PO HS calcium carbonate [Calcium 600] 600 mg calcium (1,500 mg) tablet 600 mg PO BID trazodone 50 mg tablet 50 mg PO HS PRN (Reason: sleep) cholecalciferol (vitamin D3) 50 mcg (2,000 unit) capsule 2,000 unit PO BID gabapentin 100 mg capsule 200 mg PO BID 90 Days Qty: 360 3RF melatonin 5 mg tablet 5 mg PO HS Discontinued prednisone 10 mg tablets,dose pack See Rx Instructions PO .COMPLEX Qty: 21 0RF Rx Instructions: Take 60 mg p.o. x1 day, 50 mg p.o. x1 day, 40 mg p.o. x1 day, 30 mg p.o. x1 day, 20 mg p.o. x 1 day, then 10mg p.o. x one day, then stop Discharge Orders: Discharge Order (Routine); Ordered 10/29/23 Ordered By: Leonardo Mitchell/Other Patient Handouts: Managing Type 2 Diabetes, Diverticulosis and Diverticulitis Admission Data Admit Date/Time: 10/25/23 08:52 Attending Provider: Leonardo Torres Admit Provider: Darnell Castro Primary Care Provider: Hernan Barney Other Providers: Darnell Castro; Michel Mann; Tobi Mcclendon; Radha Lomas; Lakisha Julio; Maria Dolores Pantoja; Ange Villalobos; Sharonda Salgado; Rafael Cash; Shiva Brandt; Seth Manning; Jamie Tellez; Charles Gomez; Trina David; Niharika Rodriguez; Juana Santos; Maddie Caal; Berta Rich; Laith Perez; Nilesh Parks; Alma Delia Young; Karli Watters Jr; Trey Rosales; Jaime Trammell; Gideon Domínguez; Sunny Lynn; Adelia Beavers; Jarrod Melgar I Other Interventions: Discharge Summary Assessment (RN) Last Done: 10/29/23 11:04 Hospital Stay Data Consultations 10/25/23 08:04 ED Decision to Admit Stat 10/25/23 15:06 Consult Gastroenterology Routine Procedures Performed Operation Date: 10/28/23 17:10 Actual Procedures p Colonoscopy - Jarrod Melgar MD Diagnostic Imagining Performed 10/25/23 05:40 CT abd pelvis wo con Stat Pending Results Patient Have Any Pending Studies at Discharge: No Discharge Instructions Given to Patient (Per Discharging Provider) Please follow up with Primary Care Provider and Presentation Specialist as discussed. Total Time Total Time Spent Total Time Spent (In Minutes): >45 minutes Coding Level of Care Code 63265 INP/OBS DISCH >30 MIN Diagnoses Acute lower GI bleeding K92.2 Anemia D64.9 Anemia type: unspecified type Essential hypertension I10 Diverticulosis K57.90 Type 2 diabetes mellitus E11.9
[2023-10-29 11:30] VITALS: BP 168/80; PULSE 87; O2SAT 97
== END 2023-10-29 13:29 | disposition home or self-care (01) | DRG 378 ==
LOC: SUATTDRO → ED 05:27 → EDINP 08:52 → SUATTDRO 08:52 → 2W 10:30

== ENCOUNTER 2024-01-10 17:27 | Inpatient (IN) ==
--- NOTE | 2024-01-10 18:05 | Emergency Department Note ---
Impression & Plan BRBPR (bright red blood per rectum), Lightheadedness, Elevated lactic acid level ED Provider Note HISTORY OF PRESENT ILLNESS: Patient is a 73-year-old female presenting with bright red blood per rectum. Patient reports that today she has had multiple bowel movements which have been grossly bloody with large blood clots. Patient denies any anticoagulant or antiplatelet use. She states she feels very lightheaded and dizzy today. She is also complaining of left lower quadrant abdominal pain. Denies any fevers. Denies any chest pain or shortness of breath. Denies any nausea, vomiting or diarrhea. She denies any pain with her bloody bowel movements. She states her last colonoscopy was during her last admission in October 2023. ROS: as above PHYSICAL EXAM: Constitutional: Patient appears in no acute distress. HENT: Head: Normocephalic and atraumatic. Eyes: EOMI, PERRL Mouth/Throat: Mucous membranes moist. Neck: Trachea midline. Neck supple. Cardiovascular: RRR, No murmurs, rubs or gallops. Intact distal pulses. Pulmonary/Chest: No respiratory distress. Breath sounds clear and equal bilaterally. No wheezes or rales. Abdominal: Abdomen soft, no rebound or guarding. LLQ TTP Rectal: No palpable masses or hemorrhoids. Grossly bloody rectal exam. Hemoccult positive. Musculoskeletal: No edema, tenderness or deformity noted. Skin: Warm and dry. No rash, erythema, pallor or cyanosis Psychiatric: Appropriate mood and affect for situation. Neurological: Alert and keenly responsive. CN II-XII grossly intact, moving all extremities equally and fully. MDM: - Vitals signs showed hypertension - History obtained via patient. History as above. - Chronic conditions affecting care: DM-2; HTN; hyperparathyroidism; chronic anemia - Differential diagnoses include, but are not limited to: diverticulitis; bleeding diverticulum; upper GI bleed; coagulopathy - Order placed for continuous cardiac monitoring. At this time, monitor showed rate of 93 bpm with normal sinus rhythm, per my interpretation. - External medical records reviewed. Gastroenterology visit dated 12/22/2023 was reviewed. Patient is most recent colonoscopy (October 2023) showed evidence of diverticulosis. - EKG interpreted by myself showed normal sinus rhythm. Rate 89 bpm. QT 366. No acute ischemic changes. - Laboratory workup interpreted by myself showed slight leukocytosis (WBC 11.63); chronic anemia (Hgb 9.8); elevated lactate (2.3); slight hypokalemia (K 3.4); normal troponin; normal lipase - UA negative for infection - Patient reports significant claustrophobia with CT scans. She was given 0.25 mg IV Ativan to facilitate care. - CTA abdomen/pelvis negative for acute pathology. - Patient given 40 mg IV protonix in ER. - Though patient's anemia still within her normal chronic anemia range, she is symptomatic and having gross blood from rectum. She is reporting symptoms of Gi bleed with lightheadedness - Discussion was had with residential case manager about patient's case and need for admission - Hospitalist consulted for admission - Patient admitted to [facility] service for further evaluation and management. 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 Iron deficiency Degenerative arthritis of knee, bilateral Foot pain Bilateral knee pain Statin intolerance (Chronic) Statin myopathy (Chronic) Anxiety (Chronic) Hypertension (Chronic) Asthma (Chronic) HX: breast cancer Vitamin D deficiency (Chronic) Seborrheic dermatitis (Acute) Peripheral neuropathy (Chronic) Osteoporosis (Acute) Incontinence (Acute) Gastroesophageal reflux disease (Chronic) Dyslipidemia (Chronic) Diabetes mellitus with neurological manifestations, controlled (Chronic) Depression (Acute) Urinary frequency Urinary urgency Medical History Acute lower GI bleeding COVID-19 Otitis externa of right ear Diverticulosis of intestine Breast cancer Asthma Hypertension Diabetes Anxiety Lower GI bleed (2017) Hyperparathyroidism Surgical History Hx of blepharoplasty S/P cataract extraction History of hysterectomy History of lumpectomy History of sinus surgery History of colonoscopy H/O: H/O oral surgery Family History Mother Diabetes Hypertension Breast cancer Father Emphysema/COPD Stroke syndrome Coronary heart disease Unknown Cancer Stroke syndrome Heart disease Pulmonary embolism Denies family history of Ovarian cancer Prostate cancer Colorectal cancer Social History Smoking Status: Unknown if ever smoked Second Hand Exposure: No; Do You Dip or Chew Tobacco: No; Hx Alcohol Use: No Hx Substance Use: No Preferred Language: Marshallese Communication Ability: Effective Visual Impairment: No Limitations Hearing Ability: Normal Adult Care Provider Required: No Beliefs That Will Affect Care: None marital status: Current Living Situation: Spouse current occupational status: retired 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 Safe at Home: Yes Childhood Exposure to Second-Hand Smoke: Yes Diet: vegetarian caffeine: No Dental Care, Regularly: Yes Physical Activity Frequency: 3-4 Times per Week Seatbelt Use: always Sunscreen Use: No Assistive Devices: None Allergies Allergies Allergy/AdvReac Type Severity Reaction Status Date / Time blue dye Allergy Severe "THROAT Verified 01/09/24 07:54 CLOSED UP AND TERRIBLE HEADACHE" fesoterodine Allergy Severe "THROAT Verified 01/09/24 07:54 CLOSED UP AND TERRIBLE HEADACHE" lecithin,egg Allergy Severe "THROAT Verified 01/09/24 07:54 CLOSED UP AND TERRIBLE HEADACHE" midazolam Allergy Severe CENTRAL Verified 01/09/24 07:54 NERVOUS REACTION "ACTING OUT" peanut Allergy Severe ANAPLYLAXIS Verified 01/09/24 07:54 chocolate flavor Allergy Intermediate RASH Verified 01/09/24 07:54 diltiazem [From Cardizem] Allergy Intermediate PT STATES Verified 01/09/24 07:54 "EITHER BODY ACHES OR UPSET STOMACH". metoprolol [From Toprol XL] Allergy Intermediate PT STATES Verified 01/09/24 07:54 "EITHER BODY ACHES OR UPSET STOMACH". adhesive tape Allergy Mild localized Verified 01/09/24 07:54 rash KADIE Inhibitors Allergy Unknown UNKNOWN Verified 01/09/24 07:54 Beta-Blockers Allergy Unknown UNKNOWN Verified 01/09/24 07:54 (Beta-Adrenergic Bloc codeine Allergy Unknown Unknown Verified 01/09/24 07:54 gentamicin Allergy Unknown unknown Verified 01/09/24 07:54 zolpidem Allergy Unknown UNKNOWN Verified 01/09/24 07:54 caffeine AdvReac Severe HYPERACTIVI Verified 01/09/24 07:54 TY [id number] Reductase AdvReac Severe Diffuse Verified 01/09/24 07:54 Inhibitor myalgias, myopathy corn AdvReac Intermediate HEADACHE Verified 01/09/24 07:54 dulaglutide [From [facility]] AdvReac Intermediate abdominal Verified 01/09/24 07:54 discomfort metformin AdvReac Intermediate abdominal Verified 01/09/24 07:54 discomfort Home Meds Home Medications Medication Instructions Recorded Confirmed calcium carbonate (Calcium 600) 600 mg PO BID 09/25/18 01/10/24 trazodone 50 mg tablet 50 mg PO HS PRN sleep 09/25/18 01/10/24 citalopram 20 mg tablet 20 mg PO HS 03/10/20 01/10/24 melatonin 5 mg tablet 5 mg PO HS 08/27/20 01/10/24 cholecalciferol (vitamin D3) 50 2,000 unit PO BID 11/09/20 01/10/24 mcg (2,000 unit) capsule aflibercept 2 mg/0.05 mL 1 mg intravitreal DIRECTED 01/09/24 01/10/24 intravitreal solution for injection (Eylea) Previous Rx's Medication Instructions Recorded lancets ([facility] ([place])Touch UltraSoft #100 ea 08/29/20 Lancets) lancets 33 gauge (OneTouch Delica #100 ea 10/02/21 Lancets) diltiazem HCl 360 mg 360 mg PO QAM hypertension #90 caps 12/25/22 capsule,extended release 24 hr blood sugar diagnostic (OneTouch #100 ea 03/14/23 Verio test strips) gabapentin 100 mg capsule 200 mg (2 x 100 mg) PO BID 90 days 08/16/23 #360 caps evolocumab 140 mg/mL subcutaneous 140 mg subcut .every two weeks #2 08/18/23 pen injector (Chana Sheppard) mL sitagliptin phosphate 100 mg 100 mg PO HS #90 tabs 09/09/23 tablet (Januvia) omeprazole 20 mg capsule,delayed 20 mg PO DAILY gerd #90 caps 10/08/23 release ferrous sulfate 325 mg (65 mg 325 mg PO Q OTHER DAY #45 tabs 11/08/23 iron) tablet losartan 100 mg tablet 100 mg PO QAM #90 tabs 12/19/23 hydrocortisone 1 % topical cream 1 applic topical DAILY PRN rash 01/08/24 (Preparation H Hydrocortisone) #28.4 grams Results & Data (ED) Vital Signs Vital Signs - 24 hr 01/10/24 17:50 01/10/24 17:50 01/10/24 18:01 Temperature 36.9 C Temperature Source Oral Pulse Rate 91 H 90 Pulse Rate [Apical] 91 H Pulse Rhythm [Apical] Regular Respiratory Rate 20 20 Respiratory Effort / Characteristics Non-Labored Spontaneous Non-Labored Spontaneous Respiratory Depth Normal Normal Respiratory Pattern Blood Pressure 151/79 H Blood Pressure [Right Arm] 151/79 H Blood Pressure Mean 103 Blood Pressure Mean [Right Arm] 103 Blood Pressure Position [Right Arm] Pulse Oximetry 96 95 Oxygen Delivery Method Room Air Room Air Sepsis Recent Fever Within 48 Hours No Sepsis New/Unexplained Change in Mental Status No Sepsis Action Taken by Nursing No Action Required 01/10/24 18:10 01/10/24 19:16 01/10/24 20:38 Temperature Temperature Source Pulse Rate Pulse Rate [Apical] 90 93 H Pulse Rhythm [Apical] Respiratory Rate 20 16 Respiratory Effort / Characteristics Non-Labored Spontaneous Non-Labored Spontaneous Respiratory Depth Normal Normal Respiratory Pattern Regular Regular Blood Pressure Blood Pressure [Right Arm] 160/89 H 172/86 H Blood Pressure Mean Blood Pressure Mean [Right Arm] 112 114 Blood Pressure Position [Right Arm] Semi-fowlers Semi-fowlers Pulse Oximetry 96 96 96 Oxygen Delivery Method Room Air Room Air Room Air Sepsis Recent Fever Within 48 Hours Sepsis New/Unexplained Change in Mental Status Sepsis Action Taken by Nursing Laboratory Data 01/10/24 17:47 01/10/24 17:47 Lab Results 01/10/24 01/10/24 01/10/24 Range/Units 17:47 18:15 19:45 WBC 11.63 H (4.8-10.8) K/ul RBC 3.74 L (4.20-5.40) M/uL Hgb 9.8 L (12.0-16.0) g/dl Hct 31.7 L (37.0-47.0) % MCV 84.8 (80.0-100.0) fL MCH 26.2 (25.0-34.0) pg MCHC 30.9 L (32.0-36.0) g/dL RDW Std Deviation 52.7 H (36.4-46.3) fL RDW Coeff of Jose Roberto 17.7 H (11.5-14.5) % Plt Count 363 (130-400) K/uL MPV 10.4 (9.4-12.4) fL Immature Gran % (Auto) 0.5 % Neut % (Auto) 75.7 % Lymph % (Auto) 16.4 % Swift % (Auto) 6.4 % Eos % (Auto) 0.5 % Baso % (Auto) 0.5 % Neut # (Auto) 8.79 H (1.40-6.50) K/uL Lymph # (Auto) 1.91 (1.20-3.40) K/uL Swift # (Auto) 0.75 H (0.11-0.59) K/uL Eos # (Auto) 0.06 (0.00-0.50) K/uL Baso # (Auto) 0.06 (0.00-0.20) K/uL Immature Gran # (Auto) 0.06 (0.01-0.20) K/uL PT 10.3 (9.0-12.0) Seconds INR 0.9 (0.9-1.1) Sodium 138 (136-145) mmol/L Potassium 3.4 L (3.5-5.1) mmol/L Chloride 101 (98-107) mmol/L Carbon Dioxide 27 (21-32) mmol/L Anion Gap 10 (3-11) BUN 11 (6-23) mg/dl Creatinine 0.77 (0.6-1.2) mg/dl Est Cr Clr Drug Dosing 55.4 ml/min eGFR 80.90 BUN/Creatinine Ratio 14.3 (10-20) Glucose 148 H (70-99(Fasting)) mg/dl Lactate 2.3 H* (0.4-2.0) mmol/L Calcium 9.2 (8.6-10.3) mg/dl Total Bilirubin 0.2 (0.2-1.0) mg/dl AST 18 (13-39) U/L ALT 10 (7-52) U/L Alkaline Phosphatase 81 (34-104) U/L Troponin I High Sens 4.3 (0-14) pg/ml Total Protein 7.2 (6.0-8.3) gm/dl Albumin 4.4 (3.4-5.0) gm/dl Globulin 2.8 (2.5-4.0) gm/dl Albumin/Globulin Ratio 1.6 (0.9-2) Lipase 35 (11-82) U/L Urine Color Urine Appearance (Clear) Urine pH (4.5-7.5) Ur Specific [place] (1.000-1.030) Urine Protein (Negative) Urine Glucose (UA) (Negative) Urine Ketones (Negative) Urine Blood (Negative) Urine Nitrite (Negative) Urine Bilirubin (Negative) Urine Urobilinogen (Negative) Ur Leukocyte Esterase (Negative) Urine WBC (Auto) (0-5) /hpf Urine RBC (Auto) (0-2) /hpf U Hyaline Cast (Auto) (0-2) /lpf U Epithel Cells (Auto) (0-2) /hpf Urine Bacteria (Auto) (None Seen) Calcium Oxalate Crystal (None Prsent) POC Stool Occult Blood Positive A (Negative) 01/10/24 Range/Units Unknown WBC (4.8-10.8) K/ul RBC (4.20-5.40) M/uL Hgb (12.0-16.0) g/dl Hct (37.0-47.0) % MCV (80.0-100.0) fL MCH (25.0-34.0) pg MCHC (32.0-36.0) g/dL RDW Std Deviation (36.4-46.3) fL RDW Coeff of Jose Roberto (11.5-14.5) % Plt Count (130-400) K/uL MPV (9.4-12.4) fL Immature Gran % (Auto) % Neut % (Auto) % Lymph % (Auto) % Swift % (Auto) % Eos % (Auto) % Baso % (Auto) % Neut # (Auto) (1.40-6.50) K/uL Lymph # (Auto) (1.20-3.40) K/uL Swift # (Auto) (0.11-0.59) K/uL Eos # (Auto) (0.00-0.50) K/uL Baso # (Auto) (0.00-0.20) K/uL Immature Gran # (Auto) (0.01-0.20) K/uL PT (9.0-12.0) Seconds INR (0.9-1.1) Sodium (136-145) mmol/L Potassium (3.5-5.1) mmol/L Chloride (98-107) mmol/L Carbon Dioxide (21-32) mmol/L Anion Gap (3-11) BUN (6-23) mg/dl Creatinine (0.6-1.2) mg/dl Est Cr Clr Drug Dosing ml/min eGFR BUN/Creatinine Ratio (10-20) Glucose (70-99(Fasting)) mg/dl Lactate (0.4-2.0) mmol/L Calcium (8.6-10.3) mg/dl Total Bilirubin (0.2-1.0) mg/dl AST (13-39) U/L ALT (7-52) U/L Alkaline Phosphatase (34-104) U/L Troponin I High Sens (0-14) pg/ml Total Protein (6.0-8.3) gm/dl Albumin (3.4-5.0) gm/dl Globulin (2.5-4.0) gm/dl Albumin/Globulin Ratio (0.9-2) Lipase (11-82) U/L Urine Color Yellow Urine Appearance Clear (Clear) Urine pH 5.5 (4.5-7.5) Ur Specific [place] 1.026 (1.000-1.030) Urine Protein Trace H (Negative) Urine Glucose (UA) Negative (Negative) Urine Ketones Trace H (Negative) Urine Blood Negative (Negative) Urine Nitrite Negative (Negative) Urine Bilirubin Negative (Negative) Urine Urobilinogen Negative (Negative) Ur Leukocyte Esterase 1+ H (Negative) Urine WBC (Auto) 11-20 H (0-5) /hpf Urine RBC (Auto) 3-5 H (0-2) /hpf U Hyaline Cast (Auto) 11-20 H (0-2) /lpf U Epithel Cells (Auto) 3-5 H (0-2) /hpf Urine Bacteria (Auto) None Seen (None Seen) Calcium Oxalate Crystal Present A (None Prsent) POC Stool Occult Blood (Negative) Administered Medications Discontinued Medications Pantoprazole Sodium (Protonix) 40 mg in 10 mls @ 5 mls/min IV NOW ONE Stop: 01/10/24 18:03 Last Admin: 01/10/24 18:22 Dose: 5 mls/min Documented By: JOSE RAMON Ioversol (Optiray 320 125ml) 118 ml IV ONCE ONE Stop: 01/10/24 19:40 Last Admin: 01/10/24 19:44 Dose: 118 ml Documented By: TANIKA Lorazepam (Lorazepam 2 Mg/1 Ml Vial) 0.25 mg IV NOW STA Stop: 01/10/24 19:17 Last Admin: 01/10/24 19:28 Dose: 0.25 mg Documented By: EDITH Imaging Data Radiologist's Impression: Abdomen/Pelvis CTA 01/10/24 18:02 Exam(s): CTA ABDOMEN + PELVIS With Contrast IV Amt: 118 ml opti 320 EXAM: CT Angiography Abdomen and Pelvis With Intravenous Contrast CLINICAL HISTORY: Reason for exam: bright red blood per rectum; LLQ abd pain. TECHNIQUE: Axial computed tomographic angiography images of the abdomen and pelvis with intravenous contrast. CTDI is 10.6 mGy and DLP is 480.19 mGy-cm. Automated exposure control was utilized for the study. A dose lowering technique was utilized adhering to the principles of ALARA. MIP reconstructed images were created and reviewed. CONTRAST: Patient received 118 ml opti 320 of IV contrast COMPARISON: CT abdomen/pelvis on 01/08/2024 FINDINGS: VASCULATURE: Aorta: Atherosclerotic changes of the vasculature. No abdominal aortic aneurysm or dissection. Celiac trunk and mesenteric arteries: No acute findings. No occlusion or significant stenosis. Renal arteries: No acute findings. No occlusion or significant stenosis. Iliac arteries: No acute findings. No occlusion or significant stenosis. Lung bases: Unremarkable. No mass. No consolidation. Heart: Trace pericardial fluid. Mediastinum: Moderate hiatal hernia. ABDOMEN: Liver: Unremarkable. No mass. Gallbladder and bile ducts: Cholelithiasis. No ductal dilation. Pancreas: Unremarkable. No ductal dilation. No mass. Spleen: Unremarkable. No splenomegaly. Adrenals: Unremarkable. No mass. Kidneys and ureters: Nonspecific mild bilateral perinephric fat stranding. No hydronephrosis or obstructing ureteral stone. Stomach and bowel: Evaluation of the stomach is limited underdistention. Duodenal diverticulum. Colonic diverticulosis without evidence of diverticulitis. No small bowel obstruction. PELVIS: Appendix: Normal appendix. Bladder: Underdistended bladder limits evaluation. Reproductive: Prior hysterectomy. ABDOMEN and PELVIS: Intraperitoneal space: Phleboliths in the pelvis. No significant fluid collection. No free air. Bones/joints: Degenerative changes of the spine. No acute fracture. No dislocation. Soft tissues: Unremarkable. Lymph nodes: Unremarkable. No enlarged lymph nodes. IMPRESSION: 1. Moderate hiatal hernia. 2. Cholelithiasis. 3. No acute abnormality in the abdomen or pelvis. Electronically signed by: Roshni Snow M.D. 01/10/24 20:36 PM Discharge Plan Visit Data Chief Complaint: GI Bleed ED Provider: Rosa M Chambers Discharge Problem: BRBPR (bright red blood per rectum), Lightheadedness, Elevated lactic acid level Forms Stand Alone Forms: [facility] Prescriptions Prescriptions: No Action (DME) lancets [OneTouch UltraSoft Lancets] Misc See Rx Instructions .ROUTE .MEDSUPPLY Qty: 100 3RF Rx Instructions: Test once daily (DME) lancets [OneTouch Delica Lancets] 33 gauge misc See Rx Instructions .Route Qty: 100 3RF Rx Instructions: Test once daily diltiazem HCl 360 mg capsule,extended release 24hr 360 mg PO QAM Qty: 90 3RF (DME) OneTouch Verio test strips Strip See Rx Instructions .ROUTE .MEDSUPPLY Qty: 100 3RF Rx Instructions: Test once daily Repatha SureClick 140 mg/mL pen injector 140 mg subcut .every two weeks Qty: 2 11RF Rx Instructions: Saturday Januvia 100 mg tablet 100 mg PO HS Qty: 90 3RF omeprazole 20 mg capsule,delayed release(DR/EC) 20 mg PO DAILY Qty: 90 3RF losartan 100 mg tablet 100 mg PO QAM Qty: 90 3RF Rx Instructions: TAKE 1 TABLET BY MOUTH EVERY MORNING citalopram 20 mg tablet 20 mg PO HS calcium carbonate [Calcium 600] 600 mg calcium (1,500 mg) tablet 600 mg PO BID trazodone 50 mg tablet 50 mg PO HS PRN (Reason: sleep) cholecalciferol (vitamin D3) 50 mcg (2,000 unit) capsule 2,000 unit PO BID ferrous sulfate 325 mg (65 mg iron) tablet 325 mg PO Q OTHER DAY Qty: 45 3RF gabapentin 100 mg capsule 200 mg PO BID 90 Days Qty: 360 3RF melatonin 5 mg tablet 5 mg PO HS Eylea 2 mg/0.05 mL Solution 1 mg INTRAVITREAL DIRECTED Rx Instructions: unable to verify hydrocortisone [Preparation H Hydrocortisone] 1 % cream 1 applic topical DAILY PRN (Reason: rash) Qty: 28.4 0RF Referrals Referrals: Hernan Barney DO [Primary Care Provider] -
[2024-01-10 18:17] LABS: Basophils # (auto) 0.06 K/uL (0.00-0.20); Basophils % (auto) 0.5 %; Eosinophils # (auto) 0.06 K/uL (0.00-0.50); Eosinophils % (auto) 0.5 %; Hematocrit (blood only) 31.7 % (37.0-47.0); Hemoglobin 9.8 g/dl (12.0-16.0); Immature Granulocytes # (auto) 0.06 K/uL (0.01-0.20); Immature Granulocytes % (auto) 0.5 %; Lymphocytes # (auto) 1.91 K/uL (1.20-3.40); Lymphocytes % (auto) 16.4 %; Mean Corpuscular Hemoglobin 26.2 pg (25.0-34.0); Mean Corpuscular Hgb Conc 30.9 g/dL (32.0-36.0); Mean Corpuscular Volume 84.8 fL (80.0-100.0); Mean Platelet Volume 10.4 fL (9.4-12.4); Monocytes # (auto) 0.75 K/uL (0.11-0.59); Monocytes % (auto) 6.4 %; Neutrophils # (auto) 8.79 K/uL (1.40-6.50); Neutrophils % (auto) 75.7 %; Platelet Count 363 K/uL (130-400); RDW Coefficient of Variation 17.7 % (11.5-14.5); RDW Standard Deviation 52.7 fL (36.4-46.3); Red Blood Count 3.74 M/uL (4.20-5.40); White Blood Count 11.63 K/ul (4.8-10.8)
[2024-01-10] MEDS: PANTOprazole 40 MG/10 ML SYR IV ONE (18:22)
[2024-01-10 18:35] LABS: Albumin Globulin Ratio 1.6 (0.9-2); Albumin Level 4.4 gm/dl (3.4-5.0); BUN Creatinine Ratio 14.3 (10-20); Bilirubin,Total 0.2 mg/dl (0.2-1.0); Calcium 9.2 mg/dl (8.6-10.3); Creatinine Clr Calc Pharmacy 55.4 ml/min; Globulin 2.8 gm/dl (2.5-4.0); Potassium 3.4 mmol/L (3.5-5.1); Total Protein 7.2 gm/dl (6.0-8.3)
[2024-01-10 18:42] LABS: Troponin I High Sensitivity 4.3 pg/ml (0-14)
[2024-01-10 18:43] LABS: Appearance Urine Clear (Clear); Bacteria Urine Automated None Seen (None Seen); Bilirubin Urine Negative (Negative); Blood Urine Negative (Negative); Calcium Oxalate Crystals Urine Present (None Prsent); Color Urine Yellow; Glucose Urine UA Negative (Negative); Ketones Urine Trace (Negative); Leukocyte Esterase Urine 1+ (Negative); Nitrite Urine Negative (Negative); Protein Urine Trace (Negative); Specific Gravity Urine 1.026 (1.000-1.030); Urobilinogen Urine Negative (Negative); pH Urine 5.5 (4.5-7.5)
[2024-01-10 18:45] LABS: INR 0.9 (0.9-1.1); Prothrombin Time 10.3 Seconds (9.0-12.0)
[2024-01-10] MEDS: LORazepam 2 MG/1 ML VIAL IV STA (19:28)
[2024-01-10] MEDS: OPTIRAY 320 125ml IV ONE (19:44)
--- NOTE | 2024-01-10 20:37 | CT Scan Report ---
Exam(s): CTA ABDOMEN + PELVIS With Contrast IV Amt: 118 ml opti 320 EXAM: CT Angiography Abdomen and Pelvis With Intravenous Contrast CLINICAL HISTORY: Reason for exam: bright red blood per rectum; LLQ abd pain. TECHNIQUE: Axial computed tomographic angiography images of the abdomen and pelvis with intravenous contrast. CTDI is 10.6 mGy and DLP is 480.19 mGy-cm. Automated exposure control was utilized for the study. A dose lowering technique was utilized adhering to the principles of ALARA. MIP reconstructed images were created and reviewed. CONTRAST: Patient received 118 ml opti 320 of IV contrast COMPARISON: CT abdomen/pelvis on 01/08/2024 FINDINGS: VASCULATURE: Aorta: Atherosclerotic changes of the vasculature. No abdominal aortic aneurysm or dissection. Celiac trunk and mesenteric arteries: No acute findings. No occlusion or significant stenosis. Renal arteries: No acute findings. No occlusion or significant stenosis. Iliac arteries: No acute findings. No occlusion or significant stenosis. Lung bases: Unremarkable. No mass. No consolidation. Heart: Trace pericardial fluid. Mediastinum: Moderate hiatal hernia. ABDOMEN: Liver: Unremarkable. No mass. Gallbladder and bile ducts: Cholelithiasis. No ductal dilation. Pancreas: Unremarkable. No ductal dilation. No mass. Spleen: Unremarkable. No splenomegaly. Adrenals: Unremarkable. No mass. Kidneys and ureters: Nonspecific mild bilateral perinephric fat stranding. No hydronephrosis or obstructing ureteral stone. Stomach and bowel: Evaluation of the stomach is limited underdistention. Duodenal diverticulum. Colonic diverticulosis without evidence of diverticulitis. No small bowel obstruction. PELVIS: Appendix: Normal appendix. Bladder: Underdistended bladder limits evaluation. Reproductive: Prior hysterectomy. ABDOMEN and PELVIS: Intraperitoneal space: Phleboliths in the pelvis. No significant fluid collection. No free air. Bones/joints: Degenerative changes of the spine. No acute fracture. No dislocation. Soft tissues: Unremarkable. Lymph nodes: Unremarkable. No enlarged lymph nodes. IMPRESSION: 1. Moderate hiatal hernia. 2. Cholelithiasis. 3. No acute abnormality in the abdomen or pelvis. Electronically signed by: Roshni Snow M.D. 01/10/24 20:36 PM
--- NOTE | 2024-01-10 23:19 | History & Physical Report ---
Date of Service January 10, 2024 Assessment & Plan (1) BRBPR (bright red blood per rectum): (2) History of GI bleed: (3) Diverticulosis of intestine: (4) Gastroesophageal reflux disease: (5) Iron deficiency anemia: (6) Type 2 diabetes mellitus: (7) Essential hypertension: (8) Hypertension: Plan Bright red blood per rectum- Initial episode 2 days ago was without pain, but the 2 episodes of the day of admission are now accompanied by abdominal discomfort left lower quadrant and gas. NPO Hemoccult positive in the ED Hemoglobin 9.8 on admission, with range 8.1-10.6, follow serially CT scans have noted diverticulosis past, although not commented on CTA today Would be concerned regarding possible diverticulitis as cause, even though not reported on CT scan Placed on Zosyn 4.5 g IV every 8 hours NSS + KCl 20 mEq at 80 mL/h x 1 L Zofran 4 mg IV every 6 hours as needed Pantoprazole 40 mg IV daily Acetaminophen 650 mg by mouth every 6 hours as needed for mild pain or fever Serial CBC with differential, chemistry and magnesium levels For hypertension, continue diltiazem. Temporarily hold losartan For diabetes mellitus, hold Januvia, and placed on Accu-Cheks with NovoLog SSI Consult gastroenterology History of Present Illness Chief Complaint: The patient presents to the emergency department with bright red blood per rectum, initially happened 2 days ago, was seen in the emergency department, and advised that it was hemorrhoidal bleeding. She reports having 2 additional episodes of bright red blood this morning, and now is noticing abdominal pain along the left lower quadrant, and gas. Primary Care Provider: Hernan Barney DO The patient is a 73-year-old female with past medical history including history of GI bleed, iron deficiency anemia, diabetes mellitus type 2, hypertension, diverticulosis, anxiety, asthma, peripheral neuropathy, GERD, and depression. She presents to the emergency department with symptoms as noted above. Allergies Allergy/AdvReac Type Severity Reaction Status Date / Time blue dye Allergy Severe "THROAT Verified 01/09/24 07:54 CLOSED UP AND TERRIBLE HEADACHE" fesoterodine Allergy Severe "THROAT Verified 01/09/24 07:54 CLOSED UP AND TERRIBLE HEADACHE" lecithin,egg Allergy Severe "THROAT Verified 01/09/24 07:54 CLOSED UP AND TERRIBLE HEADACHE" midazolam Allergy Severe CENTRAL Verified 01/09/24 07:54 NERVOUS REACTION "ACTING OUT" peanut Allergy Severe ANAPLYLAXIS Verified 01/09/24 07:54 chocolate flavor Allergy Intermediate RASH Verified 01/09/24 07:54 diltiazem [From Cardizem] Allergy Intermediate PT STATES Verified 01/09/24 07:54 "EITHER BODY ACHES OR UPSET STOMACH". metoprolol [From Toprol XL] Allergy Intermediate PT STATES Verified 01/09/24 07:54 "EITHER BODY ACHES OR UPSET STOMACH". adhesive tape Allergy Mild localized Verified 01/09/24 07:54 rash KADIE Inhibitors Allergy Unknown UNKNOWN Verified 01/09/24 07:54 Beta-Blockers Allergy Unknown UNKNOWN Verified 01/09/24 07:54 (Beta-Adrenergic Bloc codeine Allergy Unknown Unknown Verified 01/09/24 07:54 gentamicin Allergy Unknown unknown Verified 01/09/24 07:54 zolpidem Allergy Unknown UNKNOWN Verified 01/09/24 07:54 caffeine AdvReac Severe HYPERACTIVI Verified 01/09/24 07:54 TY [id number] Reductase AdvReac Severe Diffuse Verified 01/09/24 07:54 Inhibitor myalgias, myopathy corn AdvReac Intermediate HEADACHE Verified 01/09/24 07:54 dulaglutide [From Trulicity] AdvReac Intermediate abdominal Verified 01/09/24 07:54 discomfort metformin AdvReac Intermediate abdominal Verified 01/09/24 07:54 discomfort Home Medications Medication Instructions Recorded Confirmed Type calcium carbonate (Calcium 600) 600 mg PO BID 09/25/18 01/10/24 History trazodone 50 mg tablet 50 mg PO HS PRN sleep 09/25/18 01/10/24 History citalopram 20 mg tablet 20 mg PO HS 03/10/20 01/10/24 History melatonin 5 mg tablet 5 mg PO HS 08/27/20 01/10/24 History lancets (GRIN PublishingTouch UltraSoft #100 ea 08/29/20 01/10/24 Rx Lancets) cholecalciferol (vitamin D3) 50 2,000 unit PO BID 11/09/20 01/10/24 History mcg (2,000 unit) capsule lancets 33 gauge (OneTouch Delica #100 ea 10/02/21 01/10/24 Rx Lancets) diltiazem HCl 360 mg 360 mg PO QAM hypertension #90 caps 12/25/22 01/10/24 Rx capsule,extended release 24 hr blood sugar diagnostic (OneTouch #100 ea 03/14/23 01/10/24 Rx Verio test strips) gabapentin 100 mg capsule 200 mg (2 x 100 mg) PO BID 90 days 08/16/23 01/10/24 Rx #360 caps evolocumab 140 mg/mL subcutaneous 140 mg subcut .every two weeks #2 08/18/23 01/10/24 Rx pen injector (beverly DavianGadielick) mL sitagliptin phosphate 100 mg 100 mg PO HS #90 tabs 09/09/23 01/10/24 Rx tablet (Januvia) omeprazole 20 mg capsule,delayed 20 mg PO DAILY gerd #90 caps 10/08/23 01/10/24 Rx release ferrous sulfate 325 mg (65 mg 325 mg PO Q OTHER DAY #45 tabs 11/08/23 01/10/24 Rx iron) tablet losartan 100 mg tablet 100 mg PO QAM #90 tabs 12/19/23 01/10/24 Rx hydrocortisone 1 % topical cream 1 applic topical DAILY PRN rash 01/08/24 01/10/24 Rx (Preparation H Hydrocortisone) #28.4 grams aflibercept 2 mg/0.05 mL 1 mg intravitreal DIRECTED 01/09/24 01/10/24 History intravitreal solution for injection (Eylea) Past Med/Surg History Problem List (Updated 01/11/24 @ 04:15 by Mg Cheung MD) Diverticulosis of intestine Elevated lactic acid level (Acute) Lightheadedness (Acute) BRBPR (bright red blood per rectum) (Acute) Acute lower GI bleeding (Acute) Left knee DJD Heartburn History of GI bleed Iron deficiency anemia Muscular aches Vegan diet Excessive cerumen in right ear canal Vitamin B 12 deficiency Type 2 diabetes mellitus Essential hypertension Diverticulosis (Acute) Anemia (Acute) Biceps strain 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 Iron deficiency Degenerative arthritis of knee, bilateral Foot pain Bilateral knee pain Statin intolerance (Chronic) Statin myopathy (Chronic) Anxiety (Chronic) Hypertension (Chronic) Asthma (Chronic) HX: breast cancer Vitamin D deficiency (Chronic) Seborrheic dermatitis (Acute) Peripheral neuropathy (Chronic) Osteoporosis (Acute) Incontinence (Acute) Gastroesophageal reflux disease (Chronic) Dyslipidemia (Chronic) Diabetes mellitus with neurological manifestations, controlled (Chronic) Depression (Acute) Urinary frequency Urinary urgency Medical History (Updated 01/11/24 @ 04:15 by Mg Cheung MD) Otitis externa of right ear Acute lower GI bleeding COVID-19 Breast cancer Asthma Hypertension Diabetes Anxiety Lower GI bleed (2017) Hyperparathyroidism Surgical History Hx of blepharoplasty S/P cataract extraction Bilateral cataract surgery 2019 History of hysterectomy History of lumpectomy History of sinus surgery History of colonoscopy H/O: H/O oral surgery Family History Mother Diabetes Hypertension Breast cancer Father Emphysema/COPD Stroke syndrome Coronary heart disease Unknown Cancer Stroke syndrome Heart disease Pulmonary embolism Denies family history of Ovarian cancer Prostate cancer Colorectal cancer Social History Smoking Status: Never smoker Second Hand Exposure: No; Do You Dip or Chew Tobacco: No; Hx Alcohol Use: No Hx Substance Use: No Preferred Language: Divehi Communication Ability: Effective Visual Impairment: No Limitations Hearing Ability: Normal Full Stack Php Developer Required: No Beliefs That Will Affect Care: None marital status: Current Living Situation: Spouse current occupational status: retired 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 Other Information That Helps Us Care for You: No Feels Safe at Home: Yes Safety Concerns: Feels Safe At This Time Childhood Exposure to Second-Hand Smoke: Yes Diet: vegetarian caffeine: No Dental Care, Regularly: Yes Physical Activity Frequency: 3-4 Times per Week Seatbelt Use: always Sunscreen Use: No Assistive Devices: Glasses Review of Systems Review of Systems: The patient denies chest pain, palpitations, shortness of breath, dyspnea on exertion, cough, lower extremity swelling, sore throat, fevers, chills, sweats, nausea, vomiting, diarrhea , constipation, blood in urine, dysuria, urinary frequency or urgency, lightheadedness, dizziness, headache, memory loss, loss of consciousness, rash, imbalance, focal or generalized weakness, numbness or tingling in arms or legs, generalized arthralgias or myalgias, back or neck pain, or night sweats. The review of systems is otherwise negative other than for that already noted above, and at least 10 systems have been reviewed. Physical Exam Physical Exam: The patient is awake, alert and oriented 3, well developed and well nourished, normocephalic and atraumatic, lying in bed and in no acute distress. HEENT--PERRL, EOMI, mucous membranes and oropharynx normal Neck--supple. No JVD. No bruits. Thyroid normal, trachea midline, no adenopathy. Heart--normal S1 and S2. No murmurs, rubs or gallops. Lungs--clear bilaterally, no respiratory distress, no accessory muscle use. Abdomen--normal bowel sounds and soft. Nontender. Nondistended, no hernias or masses, no organomegaly. Extremities--no cyanosis or clubbing. No edema. Dermatologic--normal skin turgor, normal color, no abnormal lymph nodes, no ra sh. Neurologic--cranial nerves II through XII grossly intact. Rheumatologic--normal range of motion. Psychiatric--normal affect. Results & Data Results & Data Vital Signs (Past 12 Hours) Vital Signs Temp Pulse Pulse Resp BP BP Pulse Ox 01/10/24 22:56 36.8 C 94 H 22 155/93 H 95 01/10/24 20:38 93 H 16 172/86 H 96 01/10/24 19:16 90 20 160/89 H 96 01/10/24 18:10 96 01/10/24 18:01 90 01/10/24 17:50 36.9 C 91 H 20 151/79 H 95 01/10/24 17:50 91 H 20 151/79 H 96 O2 Del Method 01/10/24 22:56 Room Air 01/10/24 20:38 Room Air 01/10/24 19:16 Room Air 01/10/24 18:10 Room Air 01/10/24 18:01 01/10/24 17:50 Room Air 01/10/24 17:50 Room Air Laboratory Results Laboratory Results WBC 11.63 K/ul (4.8-10.8) H 01/10/24 17:47 RBC 3.74 M/uL (4.20-5.40) L 01/10/24 17:47 Hgb 9.8 g/dl (12.0-16.0) L 01/10/24 17:47 Hct 31.7 % (37.0-47.0) L 01/10/24 17:47 MCV 84.8 fL (80.0-100.0) 01/10/24 17:47 MCH 26.2 pg (25.0-34.0) 01/10/24 17:47 MCHC 30.9 g/dL (32.0-36.0) L 01/10/24 17:47 RDW Std Deviation 52.7 fL (36.4-46.3) H 01/10/24 17:47 RDW Coeff of Jose Roberto 17.7 % (11.5-14.5) H 01/10/24 17:47 Plt Count 363 K/uL (130-400) 01/10/24 17:47 MPV 10.4 fL (9.4-12.4) 01/10/24 17:47 Immature Gran % (Auto) 0.5 % 01/10/24 17:47 Neut % (Auto) 75.7 % 01/10/24 17:47 Lymph % (Auto) 16.4 % 01/10/24 17:47 Mcintosh % (Auto) 6.4 % 01/10/24 17:47 Eos % (Auto) 0.5 % 01/10/24 17:47 Baso % (Auto) 0.5 % 01/10/24 17:47 Neut # (Auto) 8.79 K/uL (1.40-6.50) H 01/10/24 17:47 Lymph # (Auto) 1.91 K/uL (1.20-3.40) 01/10/24 17:47 Mcintosh # (Auto) 0.75 K/uL (0.11-0.59) H 01/10/24 17:47 Eos # (Auto) 0.06 K/uL (0.00-0.50) 01/10/24 17:47 Baso # (Auto) 0.06 K/uL (0.00-0.20) 01/10/24 17:47 Immature Gran # (Auto) 0.06 K/uL (0.01-0.20) 01/10/24 17:47 PT 10.3 Seconds (9.0-12.0) 01/10/24 17:47 INR 0.9 (0.9-1.1) 01/10/24 17:47 Sodium 138 mmol/L (136-145) 01/10/24 17:47 Potassium 3.4 mmol/L (3.5-5.1) L 01/10/24 17:47 Chloride 101 mmol/L (98-107) 01/10/24 17:47 Carbon Dioxide 27 mmol/L (21-32) 01/10/24 17:47 Anion Gap 10 (3-11) 01/10/24 17:47 BUN 11 mg/dl (6-23) 01/10/24 17:47 Creatinine 0.77 mg/dl (0.6-1.2) 01/10/24 17:47 Est Cr Clr Drug Dosing 55.4 ml/min 01/10/24 17:47 eGFR 80.90 01/10/24 17:47 BUN/Creatinine Ratio 14.3 (10-20) 01/10/24 17:47 Glucose 148 mg/dl (70-99(Fasting)) H 01/10/24 17:47 POC Glucose 136 mg/dl (70-99) H 01/11/24 02:09 Lactate 2.3 mmol/L (0.4-2.0) H* 01/10/24 18:15 Calcium 9.2 mg/dl (8.6-10.3) 01/10/24 17:47 Magnesium 2.1 mg/dl (1.7-2.4) 01/10/24 17:47 Total Bilirubin 0.2 mg/dl (0.2-1.0) 01/10/24 17:47 AST 18 U/L (13-39) 01/10/24 17:47 ALT 10 U/L (7-52) 01/10/24 17:47 Alkaline Phosphatase 81 U/L (34-104) 01/10/24 17:47 Troponin I High Sens 4.3 pg/ml (0-14) 01/10/24 17:47 Total Protein 7.2 gm/dl (6.0-8.3) 01/10/24 17:47 Albumin 4.4 gm/dl (3.4-5.0) 01/10/24 17:47 Globulin 2.8 gm/dl (2.5-4.0) 01/10/24 17:47 Albumin/Globulin Ratio 1.6 (0.9-2) 01/10/24 17:47 Lipase 35 U/L (11-82) 01/10/24 17:47 Urine Color Yellow 01/10/24 Unknown Urine Appearance Clear (Clear) 01/10/24 Unknown Urine pH 5.5 (4.5-7.5) 01/10/24 Unknown Ur Specific Wilmore 1.026 (1.000-1.030) 01/10/24 Unknown Urine Protein Trace (Negative) H 01/10/24 Unknown Urine Glucose (UA) Negative (Negative) 01/10/24 Unknown Urine Ketones Trace (Negative) H 01/10/24 Unknown Urine Blood Negative (Negative) 01/10/24 Unknown Urine Nitrite Negative (Negative) 01/10/24 Unknown Urine Bilirubin Negative (Negative) 01/10/24 Unknown Urine Urobilinogen Negative (Negative) 01/10/24 Unknown Ur Leukocyte Esterase 1+ (Negative) H 01/10/24 Unknown Urine WBC (Auto) 11-20 /hpf (0-5) H 01/10/24 Unknown Urine RBC (Auto) 3-5 /hpf (0-2) H 01/10/24 Unknown U Hyaline Cast (Auto) 11-20 /lpf (0-2) H 01/10/24 Unknown U Epithel Cells (Auto) 3-5 /hpf (0-2) H 01/10/24 Unknown Urine Bacteria (Auto) None Seen (None Seen) 01/10/24 Unknown Calcium Oxalate Crystal Present (None Prsent) A 01/10/24 Unknown POC Stool Occult Blood Positive (Negative) A 01/10/24 19:45 Impressions Abdomen/Pelvis CTA 01/10/24 18:02 Exam(s): CTA ABDOMEN + PELVIS With Contrast IV Amt: 118 ml opti 320 EXAM: CT Angiography Abdomen and Pelvis With Intravenous Contrast CLINICAL HISTORY: Reason for exam: bright red blood per rectum; LLQ abd pain. TECHNIQUE: Axial computed tomographic angiography images of the abdomen and pelvis with intravenous contrast. CTDI is 10.6 mGy and DLP is 480.19 mGy-cm. Automated exposure control was utilized for the study. A dose lowering technique was utilized adhering to the principles of ALARA. MIP reconstructed images were created and reviewed. CONTRAST: Patient received 118 ml opti 320 of IV contrast COMPARISON: CT abdomen/pelvis on 01/08/2024 FINDINGS: VASCULATURE: Aorta: Atherosclerotic changes of the vasculature. No abdominal aortic aneurysm or dissection. Celiac trunk and mesenteric arteries: No acute findings. No occlusion or significant stenosis. Renal arteries: No acute findings. No occlusion or significant stenosis. Iliac arteries: No acute findings. No occlusion or significant stenosis. Lung bases: Unremarkable. No mass. No consolidation. Heart: Trace pericardial fluid. Mediastinum: Moderate hiatal hernia. ABDOMEN: Liver: Unremarkable. No mass. Gallbladder and bile ducts: Cholelithiasis. No ductal dilation. Pancreas: Unremarkable. No ductal dilation. No mass. Spleen: Unremarkable. No splenomegaly. Adrenals: Unremarkable. No mass. Kidneys and ureters: Nonspecific mild bilateral perinephric fat stranding. No hydronephrosis or obstructing ureteral stone. Stomach and bowel: Evaluation of the stomach is limited underdistention. Duodenal diverticulum. Colonic diverticulosis without evidence of diverticulitis. No small bowel obstruction. PELVIS: Appendix: Normal appendix. Bladder: Underdistended bladder limits evaluation. Reproductive: Prior hysterectomy. ABDOMEN and PELVIS: Intraperitoneal space: Phleboliths in the pelvis. No significant fluid collection. No free air. Bones/joints: Degenerative changes of the spine. No acute fracture. No dislocation. Soft tissues: Unremarkable. Lymph nodes: Unremarkable. No enlarged lymph nodes. IMPRESSION: 1. Moderate hiatal hernia. 2. Cholelithiasis. 3. No acute abnormality in the abdomen or pelvis. Electronically signed by: Roshni Snow M.D. 01/10/24 20:36 PM Code Status & VTE Plan Code Status Full code VTE Prophylaxis Plan VTE Prophylaxis will be ordered: Yes PG Care Time/CCT Total # of Minutes Spent Total Time Spent with Patient: Total time spent is greater than 50% in coordination of care (as documented) at patient's floor/unit and/or counseling patient: Coding Level of Care Code 21992 INT INP/OBS CARE 3/75MIN Diagnoses BRBPR (bright red blood per rectum) K62.5 History of GI bleed Z87.19 Diverticulosis of intestine K57.90 Gastroesophageal reflux disease K21.9 Iron deficiency anemia D50.9 Type 2 diabetes mellitus E11.9 Essential hypertension I10 Hypertension I10
[2024-01-10 23:58] LABS: Magnesium 2.1 mg/dl (1.7-2.4)
[2024-01-11] MEDS: PIPERACILLIN/TAZOBACTAM 4.5 GM/100 ML BAG IV ONE (00:05)
[2024-01-11] MEDS ORDERED: ONDANSETRON INJ 2 MG/ML 2 ML VIAL IV PRN (02:15)
[2024-01-11] MEDS ORDERED: CARBOHYDRATES FOR HYPOGLYCEMIA PO PRN (02:15)
[2024-01-11] MEDS ORDERED: DEXTROSE 50% 50 ML SYRINGE IV PRN (02:15)
[2024-01-11] MEDS ORDERED: GLUCOSE 10 TAB/TUBE PO PRN (02:15)
[2024-01-11] MEDS ORDERED: GLUCAGON FOR INJ 1 MG VIAL SQ PRN (02:15)
[2024-01-11] MEDS ORDERED: traZODone HCL 50 MG TAB PO PRN (02:15)
[2024-01-11] MEDS ORDERED: GLUCOSE 40% GEL 15 GM TUBE PO PRN (02:15)
[2024-01-11] MEDS: NSS + 20MEQ KCL 20 MEQ/1,000 ML BAG IV SCH (03:44)
[2024-01-11 04:58] LABS: Basophils # (auto) 0.05 K/uL (0.00-0.20); Basophils % (auto) 0.5 %; Eosinophils # (auto) 0.09 K/uL (0.00-0.50); Hematocrit (blood only) 26.3 % (37.0-47.0); Hemoglobin 8.2 g/dl (12.0-16.0); Immature Granulocytes # (auto) 0.05 K/uL (0.01-0.20); Immature Granulocytes % (auto) 0.5 %; Lymphocytes # (auto) 1.63 K/uL (1.20-3.40); Lymphocytes % (auto) 17.5 %; Mean Corpuscular Hgb Conc 31.2 g/dL (32.0-36.0); Mean Corpuscular Volume 83.5 fL (80.0-100.0); Monocytes # (auto) 0.71 K/uL (0.11-0.59); Monocytes % (auto) 7.6 %; Neutrophils # (auto) 6.76 K/uL (1.40-6.50); Neutrophils % (auto) 72.9 %; Platelet Count 296 K/uL (130-400); RDW Coefficient of Variation 17.8 % (11.5-14.5); RDW Standard Deviation 51.6 fL (36.4-46.3); Red Blood Count 3.15 M/uL (4.20-5.40); White Blood Count 9.29 K/ul (4.8-10.8)
[2024-01-11 05:09] LABS: Albumin Globulin Ratio 1.5 (0.9-2); Albumin Level 3.7 gm/dl (3.4-5.0); BUN Creatinine Ratio 12.9 (10-20); Bilirubin,Total 0.4 mg/dl (0.2-1.0); Calcium 8.5 mg/dl (8.6-10.3); Creatinine Clr Calc Pharmacy 68.7 ml/min; Globulin 2.4 gm/dl (2.5-4.0); Potassium 3.4 mmol/L (3.5-5.1); Total Protein 6.1 gm/dl (6.0-8.3)
[2024-01-11] MEDS: INSULIN ASPART PER UNIT CHARGE SC SCH ×2 (05:22→20:58)
[2024-01-11] MEDS: PIPERACILLIN/TAZOBACTAM 4.5 GM/100 ML BAG IV SCH (05:35)
[2024-01-11 07:21] LABS: Estimated Average Glucose 137 mg/dl; Hemoglobin A1C 6.4 % (4.5-5.6)
--- NOTE | 2024-01-11 08:55 | Gastrointestinal Consultation ---
Date of Consultation January 11, 2024 Assessment & Plan (1) Acute lower GI bleeding: Pleasant lady with hematochezia. I suspect this is diverticular bleeding again and it seems to have stopped as she isn't passing much blood now. I think it is reasonable to treat her for acute diverticulitis at this point but would only treat for five days. She had a colonoscopy on last episode of bleeding so I don't think she needs another one now. She is set up for outpatient EGD in the near future. Would advance diet to clear liquids. Would transfuse if needed. Will follow but no testing planned at this time History of Present Illness Reason for Consultation: Hematochezia Attending Physician: Santana Dixon MD History of Present Illness 73 year old female with history of presumed diverticular bleeding in October with colonoscopy at that time that revealed only diverticulosis returns to the hospital with bleeding again. She had some bleeding and went to ED a couple of days ago and was discharged as likely hemorrhoidal bleeding. She came back after having two episodes of blood with clots yesterday. She has not really bled since then with a brown bowel movement this morning with some blood streaks. She complains of gas and cramping lower abdominal pain but no fever. CT does not show evidence of diverticulitis. Otherwise she feels well. Allergies Allergy/AdvReac Type Severity Reaction Status Date / Time blue dye Allergy Severe "THROAT Verified 01/09/24 07:54 CLOSED UP AND TERRIBLE HEADACHE" fesoterodine Allergy Severe "THROAT Verified 01/09/24 07:54 CLOSED UP AND TERRIBLE HEADACHE" lecithin,egg Allergy Severe "THROAT Verified 01/09/24 07:54 CLOSED UP AND TERRIBLE HEADACHE" midazolam Allergy Severe CENTRAL Verified 01/09/24 07:54 NERVOUS REACTION "ACTING OUT" peanut Allergy Severe ANAPLYLAXIS Verified 01/09/24 07:54 chocolate flavor Allergy Intermediate RASH Verified 01/09/24 07:54 diltiazem [From Cardizem] Allergy Intermediate PT STATES Verified 01/09/24 07:54 "EITHER BODY ACHES OR UPSET STOMACH". metoprolol [From Toprol XL] Allergy Intermediate PT STATES Verified 01/09/24 07:54 "EITHER BODY ACHES OR UPSET STOMACH". adhesive tape Allergy Mild localized Verified 01/09/24 07:54 rash KADIE Inhibitors Allergy Unknown UNKNOWN Verified 01/09/24 07:54 Beta-Blockers Allergy Unknown UNKNOWN Verified 01/09/24 07:54 (Beta-Adrenergic Bloc codeine Allergy Unknown Unknown Verified 01/09/24 07:54 gentamicin Allergy Unknown unknown Verified 01/09/24 07:54 zolpidem Allergy Unknown UNKNOWN Verified 01/09/24 07:54 caffeine AdvReac Severe HYPERACTIVI Verified 01/09/24 07:54 TY [id number]-[id number] Reductase AdvReac Severe Diffuse Verified 01/09/24 07:54 Inhibitor myalgias, myopathy corn AdvReac Intermediate HEADACHE Verified 01/09/24 07:54 dulaglutide [From [facility]] AdvReac Intermediate abdominal Verified 01/09/24 07:54 discomfort metformin AdvReac Intermediate abdominal Verified 01/09/24 07:54 discomfort Home Medications Medication Instructions Recorded Confirmed Type calcium carbonate (Calcium 600) 600 mg PO BID 09/25/18 01/10/24 History trazodone 50 mg tablet 50 mg PO HS PRN sleep 09/25/18 01/10/24 History citalopram 20 mg tablet 20 mg PO HS 03/10/20 01/10/24 History melatonin 5 mg tablet 5 mg PO HS 08/27/20 01/10/24 History lancets (Sisasauch UltraSoft #100 ea 08/29/20 01/10/24 Rx Lancets) cholecalciferol (vitamin D3) 50 2,000 unit PO BID 11/09/20 01/10/24 History mcg (2,000 unit) capsule lancets 33 gauge (ConsultedTouch Delica #100 ea 10/02/21 01/10/24 Rx Lancets) diltiazem HCl 360 mg 360 mg PO QAM hypertension #90 caps 12/25/22 01/10/24 Rx capsule,extended release 24 hr blood sugar diagnostic (ConsultedTouch #100 ea 03/14/23 01/10/24 Rx Verio test strips) gabapentin 100 mg capsule 200 mg (2 x 100 mg) PO BID 90 days 08/16/23 01/10/24 Rx #360 caps evolocumab 140 mg/mL subcutaneous 140 mg subcut .every two weeks #2 08/18/23 01/10/24 Rx pen injector (Chana Sheppard) mL sitagliptin phosphate 100 mg 100 mg PO HS #90 tabs 09/09/23 01/10/24 Rx tablet (Januvia) omeprazole 20 mg capsule,delayed 20 mg PO DAILY gerd #90 caps 10/08/23 01/10/24 Rx release ferrous sulfate 325 mg (65 mg 325 mg PO Q OTHER DAY #45 tabs 11/08/23 01/10/24 Rx iron) tablet losartan 100 mg tablet 100 mg PO QAM #90 tabs 12/19/23 01/10/24 Rx hydrocortisone 1 % topical cream 1 applic topical DAILY PRN rash 01/08/24 01/10/24 Rx (Preparation H Hydrocortisone) #28.4 grams aflibercept 2 mg/0.05 mL 1 mg intravitreal DIRECTED 01/09/24 01/10/24 History intravitreal solution for injection (Eylea) Patient History Medical History Otitis externa of right ear Acute lower GI bleeding COVID-19 Breast cancer Asthma Hypertension Diabetes Anxiety Lower GI bleed (2017) Hyperparathyroidism Surgical History Hx of blepharoplasty S/P cataract extraction Bilateral cataract surgery 2019 History of hysterectomy History of lumpectomy History of sinus surgery History of colonoscopy H/O: H/O oral surgery Family History Mother Diabetes Hypertension Breast cancer Father Emphysema/COPD Stroke syndrome Coronary heart disease Unknown Cancer Stroke syndrome Heart disease Pulmonary embolism Denies family history of Ovarian cancer Prostate cancer Colorectal cancer Social History Smoking Status: Never smoker Second Hand Exposure: No; Do You Dip or Chew Tobacco: No; Hx Alcohol Use: No Hx Substance Use: No Preferred Language: Omani Communication Ability: Effective Visual Impairment: No Limitations Hearing Ability: Normal 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 Other Information That Helps Us Care for You: No Feels Safe at Home: Yes Safety Concerns: Feels Safe At This Time Childhood Exposure to Second-Hand Smoke: Yes Diet: vegetarian caffeine: No Dental Care, Regularly: Yes Physical Activity Frequency: 3-4 Times per Week Seatbelt Use: always Sunscreen Use: No Assistive Devices: Glasses Review of Systems Review of Systems: All systems reviewed & are unremarkable except as noted in HPI & below Physical Exam Constitutional: WD/WN, vitals as above Neck: trachea midline, no thyromegaly Respiratory: normal respiratory effort, lungs clear to auscultation Cardiovascular: RRR, no murmur, no edema Gastrointestinal (Abdomen): normal bowel sounds, soft, nontender, no hepatosplenomegaly Results & Data Vital Signs (Past 12 Hours) Vital Signs Temp Pulse Pulse Resp BP BP Pulse Ox 01/11/24 06:02 36.6 C 78 18 167/87 H 94 01/11/24 05:16 77 01/11/24 02:18 36.6 C 80 18 170/87 H 97 01/11/24 02:15 81 13 170/87 H 96 01/11/24 01:52 78 18 145/79 H 98 01/11/24 01:00 70 17 01/11/24 00:00 86 21 01/10/24 23:12 90 23 95 01/10/24 22:56 36.8 C 94 H 22 155/93 H 95 01/10/24 22:03 99 H 22 01/10/24 21:00 84 16 95 O2 Del Method 01/11/24 06:02 Room Air 01/11/24 05:16 01/11/24 02:18 Room Air 01/11/24 02:15 01/11/24 01:52 Room Air 01/11/24 01:00 01/11/24 00:00 01/10/24 23:12 01/10/24 22:56 Room Air 01/10/24 22:03 01/10/24 21:00 Laboratory Results 01/11/24 01/11/24 01/10/24 Range/Units 04:26 02:09 Unknown WBC 9.29 (4.8-10.8) K/ul RBC 3.15 L (4.20-5.40) M/uL Hgb 8.2 L (12.0-16.0) g/dl Hct 26.3 L (37.0-47.0) % MCV 83.5 (80.0-100.0) fL MCH 26.0 (25.0-34.0) pg MCHC 31.2 L (32.0-36.0) g/dL RDW Std Deviation 51.6 H (36.4-46.3) fL RDW Coeff of Jose Roberto 17.8 H (11.5-14.5) % Plt Count 296 (130-400) K/uL MPV 10.0 (9.4-12.4) fL Immature Gran % (Auto) 0.5 % Neut % (Auto) 72.9 % Lymph % (Auto) 17.5 % [place] % (Auto) 7.6 % Eos % (Auto) 1.0 % Baso % (Auto) 0.5 % Neut # (Auto) 6.76 H (1.40-6.50) K/uL Lymph # (Auto) 1.63 (1.20-3.40) K/uL [place] # (Auto) 0.71 H (0.11-0.59) K/uL Eos # (Auto) 0.09 (0.00-0.50) K/uL Baso # (Auto) 0.05 (0.00-0.20) K/uL Immature Gran # (Auto) 0.05 (0.01-0.20) K/uL PT (9.0-12.0) Seconds INR (0.9-1.1) Sodium 139 (136-145) mmol/L Potassium 3.4 L (3.5-5.1) mmol/L Chloride 105 (98-107) mmol/L Carbon Dioxide 28 (21-32) mmol/L Anion Gap 6 (3-11) BUN 8 (6-23) mg/dl Creatinine 0.62 (0.6-1.2) mg/dl Est Cr Clr Drug Dosing 68.7 ml/min eGFR 93.39 BUN/Creatinine Ratio 12.9 (10-20) Glucose 122 H (70-99(Fasting)) mg/dl POC Glucose 136 H (70-99) mg/dl Estimat Average Glucose 137 mg/dl Hemoglobin A1c 6.4 H (4.5-5.6) % Lactate (0.4-2.0) mmol/L Calcium 8.5 L (8.6-10.3) mg/dl Magnesium 2.0 (1.7-2.4) mg/dl Total Bilirubin 0.4 (0.2-1.0) mg/dl AST 14 (13-39) U/L ALT 8 (7-52) U/L Alkaline Phosphatase 63 (34-104) U/L Troponin I High Sens (0-14) pg/ml Total Protein 6.1 (6.0-8.3) gm/dl Albumin 3.7 (3.4-5.0) gm/dl Globulin 2.4 L (2.5-4.0) gm/dl Albumin/Globulin Ratio 1.5 (0.9-2) Lipase (11-82) U/L Urine Color Yellow Urine Appearance Clear (Clear) Urine pH 5.5 (4.5-7.5) Ur Specific [place] 1.026 (1.000-1.030) Urine Protein Trace H (Negative) Urine Glucose (UA) Negative (Negative) Urine Ketones Trace H (Negative) Urine Blood Negative (Negative) Urine Nitrite Negative (Negative) Urine Bilirubin Negative (Negative) Urine Urobilinogen Negative (Negative) Ur Leukocyte Esterase 1+ H (Negative) Urine WBC (Auto) 11-20 H (0-5) /hpf Urine RBC (Auto) 3-5 H (0-2) /hpf U Hyaline Cast (Auto) 11-20 H (0-2) /lpf U Epithel Cells (Auto) 3-5 H (0-2) /hpf Urine Bacteria (Auto) None Seen (None Seen) Calcium Oxalate Crystal Present A (None Prsent) POC Stool Occult Blood (Negative) Hepatitis C Ab Screen Negative (Negative) 01/10/24 01/10/24 01/10/24 Range/Units 19:45 18:15 17:47 WBC 11.63 H (4.8-10.8) K/ul RBC 3.74 L (4.20-5.40) M/uL Hgb 9.8 L (12.0-16.0) g/dl Hct 31.7 L (37.0-47.0) % MCV 84.8 (80.0-100.0) fL MCH 26.2 (25.0-34.0) pg MCHC 30.9 L (32.0-36.0) g/dL RDW Std Deviation 52.7 H (36.4-46.3) fL RDW Coeff of Jose Roberto 17.7 H (11.5-14.5) % Plt Count 363 (130-400) K/uL MPV 10.4 (9.4-12.4) fL Immature Gran % (Auto) 0.5 % Neut % (Auto) 75.7 % Lymph % (Auto) 16.4 % [place] % (Auto) 6.4 % Eos % (Auto) 0.5 % Baso % (Auto) 0.5 % Neut # (Auto) 8.79 H (1.40-6.50) K/uL Lymph # (Auto) 1.91 (1.20-3.40) K/uL [place] # (Auto) 0.75 H (0.11-0.59) K/uL Eos # (Auto) 0.06 (0.00-0.50) K/uL Baso # (Auto) 0.06 (0.00-0.20) K/uL Immature Gran # (Auto) 0.06 (0.01-0.20) K/uL PT 10.3 (9.0-12.0) Seconds INR 0.9 (0.9-1.1) Sodium 138 (136-145) mmol/L Potassium 3.4 L (3.5-5.1) mmol/L Chloride 101 (98-107) mmol/L Carbon Dioxide 27 (21-32) mmol/L Anion Gap 10 (3-11) BUN 11 (6-23) mg/dl Creatinine 0.77 (0.6-1.2) mg/dl Est Cr Clr Drug Dosing 55.4 ml/min eGFR 80.90 BUN/Creatinine Ratio 14.3 (10-20) Glucose 148 H (70-99(Fasting)) mg/dl POC Glucose (70-99) mg/dl Estimat Average Glucose mg/dl Hemoglobin A1c (4.5-5.6) % Lactate 2.3 H* (0.4-2.0) mmol/L Calcium 9.2 (8.6-10.3) mg/dl Magnesium 2.1 (1.7-2.4) mg/dl Total Bilirubin 0.2 (0.2-1.0) mg/dl AST 18 (13-39) U/L ALT 10 (7-52) U/L Alkaline Phosphatase 81 (34-104) U/L Troponin I High Sens 4.3 (0-14) pg/ml Total Protein 7.2 (6.0-8.3) gm/dl Albumin 4.4 (3.4-5.0) gm/dl Globulin 2.8 (2.5-4.0) gm/dl Albumin/Globulin Ratio 1.6 (0.9-2) Lipase 35 (11-82) U/L Urine Color Urine Appearance (Clear) Urine pH (4.5-7.5) Ur Specific [place] (1.000-1.030) Urine Protein (Negative) Urine Glucose (UA) (Negative) Urine Ketones (Negative) Urine Blood (Negative) Urine Nitrite (Negative) Urine Bilirubin (Negative) Urine Urobilinogen (Negative) Ur Leukocyte Esterase (Negative) Urine WBC (Auto) (0-5) /hpf Urine RBC (Auto) (0-2) /hpf U Hyaline Cast (Auto) (0-2) /lpf U Epithel Cells (Auto) (0-2) /hpf Urine Bacteria (Auto) (None Seen) Calcium Oxalate Crystal (None Prsent) POC Stool Occult Blood Positive A (Negative) Hepatitis C Ab Screen (Negative) Diagnostic Findings Abdomen/Pelvis CTA 01/10/24 18:02 Exam(s): CTA ABDOMEN + PELVIS With Contrast IV Amt: 118 ml opti 320 EXAM: CT Angiography Abdomen and Pelvis With Intravenous Contrast CLINICAL HISTORY: Reason for exam: bright red blood per rectum; LLQ abd pain. TECHNIQUE: Axial computed tomographic angiography images of the abdomen and pelvis with intravenous contrast. CTDI is 10.6 mGy and DLP is 480.19 mGy-cm. Automated exposure control was utilized for the study. A dose lowering technique was utilized adhering to the principles of ALARA. MIP reconstructed images were created and reviewed. CONTRAST: Patient received 118 ml opti 320 of IV contrast COMPARISON: CT abdomen/pelvis on 01/08/2024 FINDINGS: VASCULATURE: Aorta: Atherosclerotic changes of the vasculature. No abdominal aortic aneurysm or dissection. Celiac trunk and mesenteric arteries: No acute findings. No occlusion or significant stenosis. Renal arteries: No acute findings. No occlusion or significant stenosis. Iliac arteries: No acute findings. No occlusion or significant stenosis. Lung bases: Unremarkable. No mass. No consolidation. Heart: Trace pericardial fluid. Mediastinum: Moderate hiatal hernia. ABDOMEN: Liver: Unremarkable. No mass. Gallbladder and bile ducts: Cholelithiasis. No ductal dilation. Pancreas: Unremarkable. No ductal dilation. No mass. Spleen: Unremarkable. No splenomegaly. Adrenals: Unremarkable. No mass. Kidneys and ureters: Nonspecific mild bilateral perinephric fat stranding. No hydronephrosis or obstructing ureteral stone. Stomach and bowel: Evaluation of the stomach is limited underdistention. Duodenal diverticulum. Colonic diverticulosis without evidence of diverticulitis. No small bowel obstruction. PELVIS: Appendix: Normal appendix. Bladder: Underdistended bladder limits evaluation. Reproductive: Prior hysterectomy. ABDOMEN and PELVIS: Intraperitoneal space: Phleboliths in the pelvis. No significant fluid collection. No free air. Bones/joints: Degenerative changes of the spine. No acute fracture. No dislocation. Soft tissues: Unremarkable. Lymph nodes: Unremarkable. No enlarged lymph nodes. IMPRESSION: 1. Moderate hiatal hernia. 2. Cholelithiasis. 3. No acute abnormality in the abdomen or pelvis. Electronically signed by: Roshni Snow M.D. 01/10/24 20:36 PM
[2024-01-11] MEDS: IRON SUCROSE 300 MG in SODIUM CHLORIDE 0.9% 250 ML IV ONE (09:17)
[2024-01-11] MEDS: dilTIAZem HCL 180 MG CAPCR PO SCH (09:17)
[2024-01-11] MEDS: POTASSIUM CHLORIDE CRTAB 20 MEQ TABCR PO SCH (09:17)
[2024-01-11 13:18] LABS: Hematocrit (blood only) 27.4 % (37.0-47.0); Hemoglobin 8.6 g/dl (12.0-16.0)
--- NOTE | 2024-01-11 13:28 | Hospitalist Progress Note ---
Date of Service January 11, 2024 Assessment & Plan (1) Lower GI bleed: Plan: has been seen by GI - likely due to extensive diverticular disease as seen on prior colonoscopy (10/28/23) GI advises ongoing conservative Rx no plans for endoscopic eval ok for clears cont serial H/H's appreciate GI assistance (2) Diverticulosis of intestine: Plan: extensive, nearly entire colon had diverticulosis on last colonoscopy 10/2023 likely cause of #1 above (3) Iron deficiency anemia: Plan: ferritin 3.4 - 12/25 3 recent IV venofer infusions done as outpatient will give another 300mg of IV Venofer today transfuse PRBCs if Hb <8 in light of active bleeding previous B12 level wnl folic acid level today wnl (4) Acute blood loss anemia: Plan: 2nd to presumed diverticular bleeding serial H/H's (5) Type 2 diabetes mellitus: Plan: a1c 6.4% hold oral agents novolog SSI (6) Essential hypertension: Plan: cont diltiazem add back losartan (7) Gastroesophageal reflux disease: Plan: cont PPI Admission and Anticipated Discharge Date Admission Date: January 10, 2024 Subjective still having some BRBPR but it is slowing down still some mild stomach upset/abd discomfort clear liquids ordered by GI - tolerating such; she reports feeling hungry no vomiting no dyspnea she states that she has been ordered 5 doses of IV venofer by the Cancer center has received 3 to date by them last was about 1 week ago denies dizziness with getting up Review of Systems Review of Systems: CV - no chest pain pulm - no dyspnea gen - no fevers or chills Physical Exam Physical Exam: gen - lying comfortably in bed, NAD skin - generalized pallor neck - no JVD heart - borderline tachy, s1 s2 lungs - CTA b/l abd - soft NT ND BS+ ext - no edema, pulses 2+ b/l psych - a/o x 3 Results & Data Results & Data Vital Signs (Past 12 Hours) Vital Signs Temp Pulse Pulse Resp BP BP Pulse Ox 01/11/24 12:46 36.6 C 89 20 160/66 H 95 01/11/24 12:44 105 H 01/11/24 06:02 36.6 C 78 18 167/87 H 94 01/11/24 05:16 77 01/11/24 02:18 36.6 C 80 18 170/87 H 97 01/11/24 02:15 81 13 170/87 H 96 01/11/24 01:52 78 18 145/79 H 98 O2 Del Method 01/11/24 12:46 Room Air 01/11/24 12:44 01/11/24 06:02 Room Air 01/11/24 05:16 01/11/24 02:18 Room Air 01/11/24 02:15 01/11/24 01:52 Room Air Laboratory Results Laboratory Results - last 48 hr 01/10/24 01/10/24 01/10/24 17:47 18:15 19:45 WBC 11.63 H RBC 3.74 L Hgb 9.8 L Hct 31.7 L MCV 84.8 MCH 26.2 MCHC 30.9 L RDW Std Deviation 52.7 H RDW Coeff of Jose Roberto 17.7 H Plt Count 363 MPV 10.4 Immature Gran % (Auto) 0.5 Neut % (Auto) 75.7 Lymph % (Auto) 16.4 [place] % (Auto) 6.4 Eos % (Auto) 0.5 Baso % (Auto) 0.5 Neut # (Auto) 8.79 H Lymph # (Auto) 1.91 [place] # (Auto) 0.75 H Eos # (Auto) 0.06 Baso # (Auto) 0.06 Immature Gran # (Auto) 0.06 Absolute Nucleated RBC Nucleated RBC % (auto) PT 10.3 INR 0.9 APTT PTT Ratio Sodium 138 Potassium 3.4 L Chloride 101 Carbon Dioxide 27 Anion Gap 10 BUN 11 Creatinine 0.77 Est Cr Clr Drug Dosing 55.4 eGFR 80.90 BUN/Creatinine Ratio 14.3 Glucose 148 H POC Glucose Estimat Average Glucose Hemoglobin A1c Lactate 2.3 H* Calcium 9.2 Magnesium 2.1 Total Bilirubin 0.2 AST 18 ALT 10 Alkaline Phosphatase 81 Troponin I High Sens 4.3 Total Protein 7.2 Albumin 4.4 Globulin 2.8 Albumin/Globulin Ratio 1.6 Lipase 35 Folate Urine Color Urine Appearance Urine pH Ur Specific [place] Urine Protein Urine Glucose (UA) Urine Ketones Urine Blood Urine Nitrite Urine Bilirubin Urine Urobilinogen Ur Leukocyte Esterase Urine WBC (Auto) Urine RBC (Auto) U Hyaline Cast (Auto) U Epithel Cells (Auto) Urine Bacteria (Auto) Calcium Oxalate Crystal POC Stool Occult Blood Positive A Hepatitis C Ab Screen 01/10/24 01/11/24 01/11/24 Unknown 02:09 04:26 WBC 9.29 RBC 3.15 L Hgb 8.2 L Hct 26.3 L MCV 83.5 MCH 26.0 MCHC 31.2 L RDW Std Deviation 51.6 H RDW Coeff of Jose Roberto 17.8 H Plt Count 296 MPV 10.0 Immature Gran % (Auto) 0.5 Neut % (Auto) 72.9 Lymph % (Auto) 17.5 [place] % (Auto) 7.6 Eos % (Auto) 1.0 Baso % (Auto) 0.5 Neut # (Auto) 6.76 H Lymph # (Auto) 1.63 [place] # (Auto) 0.71 H Eos # (Auto) 0.09 Baso # (Auto) 0.05 Immature Gran # (Auto) 0.05 Absolute Nucleated RBC Nucleated RBC % (auto) PT INR APTT PTT Ratio Sodium 139 Potassium 3.4 L Chloride 105 Carbon Dioxide 28 Anion Gap 6 BUN 8 Creatinine 0.62 Est Cr Clr Drug Dosing 68.7 eGFR 93.39 BUN/Creatinine Ratio 12.9 Glucose 122 H POC Glucose 136 H Estimat Average Glucose 137 Hemoglobin A1c 6.4 H Lactate Calcium 8.5 L Magnesium 2.0 Total Bilirubin 0.4 AST 14 ALT 8 Alkaline Phosphatase 63 Troponin I High Sens Total Protein 6.1 Albumin 3.7 Globulin 2.4 L Albumin/Globulin Ratio 1.5 Lipase Folate Urine Color Yellow Urine Appearance Clear Urine pH 5.5 Ur Specific [place] 1.026 Urine Protein Trace H Urine Glucose (UA) Negative Urine Ketones Trace H Urine Blood Negative Urine Nitrite Negative Urine Bilirubin Negative Urine Urobilinogen Negative Ur Leukocyte Esterase 1+ H Urine WBC (Auto) 11-20 H Urine RBC (Auto) 3-5 H U Hyaline Cast (Auto) 11-20 H U Epithel Cells (Auto) 3-5 H Urine Bacteria (Auto) None Seen Calcium Oxalate Crystal Present A POC Stool Occult Blood Hepatitis C Ab Screen Negative 01/11/24 01/11/24 01/11/24 10:52 13:00 16:07 WBC RBC Hgb 8.6 L Hct 27.4 L MCV MCH MCHC RDW Std Deviation RDW Coeff of Jose Roberto Plt Count MPV Immature Gran % (Auto) Neut % (Auto) Lymph % (Auto) [place] % (Auto) Eos % (Auto) Baso % (Auto) Neut # (Auto) Lymph # (Auto) [place] # (Auto) Eos # (Auto) Baso # (Auto) Immature Gran # (Auto) Absolute Nucleated RBC Nucleated RBC % (auto) PT INR APTT PTT Ratio Sodium Potassium Chloride Carbon Dioxide Anion Gap BUN Creatinine Est Cr Clr Drug Dosing eGFR BUN/Creatinine Ratio Glucose POC Glucose 142 H 132 H Estimat Average Glucose Hemoglobin A1c Lactate Calcium Magnesium Total Bilirubin AST ALT Alkaline Phosphatase Troponin I High Sens Total Protein Albumin Globulin Albumin/Globulin Ratio Lipase Folate > 22.30 Urine Color Urine Appearance Urine pH Ur Specific [place] Urine Protein Urine Glucose (UA) Urine Ketones Urine Blood Urine Nitrite Urine Bilirubin Urine Urobilinogen Ur Leukocyte Esterase Urine WBC (Auto) Urine RBC (Auto) U Hyaline Cast (Auto) U Epithel Cells (Auto) Urine Bacteria (Auto) Calcium Oxalate Crystal POC Stool Occult Blood Hepatitis C Ab Screen PG Care Time/CCT Total # of Minutes Spent Total Time Spent with Patient: Total time spent is greater than 50% in coordination of care (as documented) at patient's floor/unit and/or counseling patient: Coding Level of Care Code 84634 SUB INP/OBS CARE 2/35MIN Diagnoses Lower GI bleed K92.2 Diverticulosis of intestine K57.90 Iron deficiency anemia D50.9 Acute blood loss anemia D62 Type 2 diabetes mellitus E11.9 Essential hypertension I10 Gastroesophageal reflux disease K21.9
[2024-01-11] MEDS: AMPICILLIN/SULBACTAM SOD 3,000 MG/100 ML BAG IV SCH (16:12)
[2024-01-11] MEDS: LOSARTAN POTASSIUM 50 MG TAB PO ONE (17:25)
[2024-01-11] MEDS ORDERED: Nursing to Pharmacy Communication SCH (18:30)
[2024-01-11] MEDS: PANTOprazole 40 MG/10 ML SYR IV SCH (21:02)
[2024-01-11] MEDS: MELATONIN 3 MG TAB PO SCH (21:02)
[2024-01-11] MEDS: CITALOPRAM 20 MG TAB PO SCH (21:02)
--- NOTE | 2024-01-11 21:48 | Communication Note ---
Date of Service: January 11, 2024 Alerted by nursing that patient having acute onset chest pressure and sinus headache after receiving dose of Ancef. Ordered EKG, CXR, HsTrop, and CT Head. Other labs including - CBC, coags, and CMP ordered as well. Resident to bedside. Patient sitting up in bed upon my interview. Thinks that her CP was from her back pain. Feeling improved. Still having slight headache, but overall does not believe her symptoms were due to her heart. Patient declining EKG as she does not want to lay flat. Patient will likely refuse CT Head and CXR as well due to back pain. Did offer pain medication to help patient tolerate laying flat. Continues to decline these studies. Patient amenable to getting labs done. If trop elevated patient amenable to EKG. Patient well appearing in NAD, sitting up in bed, chatting coherently, speaking in full sentences, no obvious neurologic deficits, appears clinically well perfused without increased work of breathing. Will continue to follow with patient care and order additional studies if indicated. Results reviewed. CXR - per my read without obvious abnormalities. Labs relatively unremarkable. Troponin negative. No further workup indicated at this time. Case discussed with Dr. Cheung Resident Activity Tracking Resident Involvement: Resident Care Provided Care Provided: Adult [facility]
[2024-01-11 22:41] LABS: Basophils # (auto) 0.05 K/uL (0.00-0.20); Basophils % (auto) 0.5 %; Hematocrit (blood only) 26.8 % (37.0-47.0); Hemoglobin 8.4 g/dl (12.0-16.0); Immature Granulocytes # (auto) 0.06 K/uL (0.01-0.20); Immature Granulocytes % (auto) 0.6 %; Lymphocytes # (auto) 1.74 K/uL (1.20-3.40); Lymphocytes % (auto) 17.1 %; Mean Corpuscular Hemoglobin 25.9 pg (25.0-34.0); Mean Corpuscular Hgb Conc 31.3 g/dL (32.0-36.0); Mean Corpuscular Volume 82.7 fL (80.0-100.0); Mean Platelet Volume 9.9 fL (9.4-12.4); Monocytes # (auto) 0.74 K/uL (0.11-0.59); Monocytes % (auto) 7.3 %; Neutrophils # (auto) 7.46 K/uL (1.40-6.50); Neutrophils % (auto) 73.5 %; Nucleated RBC # (auto) 0.03 K/uL (0.00-0.12); Nucleated RBC % (auto) 0.3 %; Platelet Count 303 K/uL (130-400); RDW Coefficient of Variation 18.1 % (11.5-14.5); Red Blood Count 3.24 M/uL (4.20-5.40); White Blood Count 10.15 K/ul (4.8-10.8)
[2024-01-11 22:58] LABS: Albumin Globulin Ratio 1.7 (0.9-2); Albumin Level 3.8 gm/dl (3.4-5.0); BUN Creatinine Ratio 6.8 (10-20); Bilirubin,Total 0.4 mg/dl (0.2-1.0); Calcium 8.6 mg/dl (8.6-10.3); Creatinine Clr Calc Pharmacy 72.2 ml/min; Globulin 2.3 gm/dl (2.5-4.0); Potassium 3.7 mmol/L (3.5-5.1); Total Protein 6.1 gm/dl (6.0-8.3)
[2024-01-11 23:04] LABS: Troponin I High Sensitivity 4.1 pg/ml (0-14)
[2024-01-11 23:34] LABS: Partial Thromboplastin Time 27 Seconds (21-31); Prothrombin Time 10.9 Seconds (9.0-12.0)
--- NOTE | 2024-01-12 01:04 | XRay Report ---
Exam(s): XR CXR 1 VIEW EXAM: XR Chest, 1 View CLINICAL HISTORY: CP. TECHNIQUE: Frontal view of the chest. COMPARISON: No relevant prior studies available. FINDINGS: Lungs: Unremarkable. No consolidation. The pulmonary vasculature demonstrates no significant radiographic abnormality. Pleural space: Unremarkable. No pneumothorax. No large pleural effusion. Heart: Unremarkable. No cardiomegaly. Mediastinum: No significant abnormality identified. The trachea is midline. Bones/joints: Unremarkable. No acute fracture. Soft tissues: Surgical clips noted about the lateral right inferior thoracic soft tissues and near the junction of the axilla and right lateral thorax. IMPRESSION: No focal consolidation or acute cardiopulmonary process identified. Electronically signed by: Jt Shields MD 01/12/24 01:04 AM
[2024-01-12 04:19] LABS: Basophils # (auto) 0.05 K/uL (0.00-0.20); Basophils % (auto) 0.6 %; Eosinophils % (auto) 1.1 %; Hematocrit (blood only) 25.9 % (37.0-47.0); Hemoglobin 8.1 g/dl (12.0-16.0); Immature Granulocytes # (auto) 0.06 K/uL (0.01-0.20); Immature Granulocytes % (auto) 0.7 %; Lymphocytes # (auto) 1.34 K/uL (1.20-3.40); Lymphocytes % (auto) 15.2 %; Mean Corpuscular Hemoglobin 25.9 pg (25.0-34.0); Mean Corpuscular Hgb Conc 31.3 g/dL (32.0-36.0); Mean Corpuscular Volume 82.7 fL (80.0-100.0); Mean Platelet Volume 10.3 fL (9.4-12.4); Monocytes # (auto) 0.65 K/uL (0.11-0.59); Monocytes % (auto) 7.4 %; Nucleated RBC # (auto) 0.03 K/uL (0.00-0.12); Nucleated RBC % (auto) 0.3 %; Platelet Count 297 K/uL (130-400); RDW Coefficient of Variation 18.6 % (11.5-14.5); RDW Standard Deviation 53.6 fL (36.4-46.3); Red Blood Count 3.13 M/uL (4.20-5.40)
[2024-01-12 04:34] LABS: BUN Creatinine Ratio 6.9 (10-20); Calcium 8.6 mg/dl (8.6-10.3); Creatinine Clr Calc Pharmacy 73.5 ml/min; Potassium 3.7 mmol/L (3.5-5.1)
[2024-01-12] MEDS: LOSARTAN POTASSIUM 50 MG TAB PO SCH (08:46)
--- NOTE | 2024-01-12 10:02 | Gastroenterology Progress Note ---
Date of Service January 12, 2024 Assessment & Plan (1) Lower GI bleed: Plan: She seems to have stopped bleeding. I think we can advance her diet and hopefully get her ready for discharge in the next day or so. I would like to see what happens with diarrhea once she starts eating. Admission and Anticipated Discharge Date Admission Date: January 10, 2024 Subjective Main complaint today is gas. She is no longer passing any blood. She is having small volume stools that are normal color but loose. She is hungry. H/H are stable Physical Exam Constitutional: WD/WN, vitals as above Results & Data Vital Signs (Past 12 Hours) Vital Signs Temp Pulse Pulse Resp BP Pulse Ox O2 Del Method 01/12/24 07:55 36.7 C 97 H 22 173/96 H 96 Room Air 01/12/24 03:00 36.6 C 91 H 14 166/94 H 97 Room Air 01/12/24 00:00 102 H 01/11/24 23:00 36.6 C 90 14 169/101 H 94 Room Air
--- NOTE | 2024-01-12 19:01 | Hospitalist Progress Note ---
Date of Service January 12, 2024 Assessment & Plan (1) Lower GI bleed: Plan: likely due to extensive diverticular disease as seen on prior colonoscopy (10/28/23) GI advises ongoing conservative Rx no plans for endoscopic eval tolerated clears with stable H/H and resolution of bleeding diet advanced to vegetarian diet today cont serial H/H's appreciate GI assistance (2) Diverticulosis of intestine: Plan: extensive, nearly entire colon had diverticulosis on last colonoscopy 10/2023 likely cause of #1 above in a few weeks strongly consider a dedicated fiber supplement frequent stools today - likely catharsis from recent bleeding and/or due to IV abx c diff negative no discernible diverticulitis on CT but GI advising 5 days worth of abx today is day # 3 (3) Iron deficiency anemia: Plan: ferritin 3.4 - 12/25 3 recent IV venofer infusions done as outpatient s/p 300mg of IV Venofer this admission transfuse PRBCs if Hb <8 in light of active bleeding previous B12 level wnl folic acid level this admission wnl (4) Acute blood loss anemia: Plan: 2nd to presumed diverticular bleeding serial H/H's stable (5) Type 2 diabetes mellitus: Plan: a1c 6.4% hold oral agents novolog SSI prn (6) Essential hypertension: Plan: cont diltiazem add back losartan 100mg daily today (7) Gastroesophageal reflux disease: Plan: cont PPI Plan home tomorrow if stable overnight ? Admission and Anticipated Discharge Date Admission Date: January 10, 2024 Subjective patient with frequent BMs but the bright red blood has resolved she is anxious today because she has not been able to reach her by phone - every time she calls she cannot reach him he also did not visit today minimal amount of abdominal discomfort no n/v no dyspnea no chest pain tele with NSR Review of Systems Review of Systems: cv - no chest pain, no orthopnea, no edema pulm - no cough or dyspnea GI - no vomiting Physical Exam Physical Exam: gen - lying comfortably in bed, NAD, looks well but anxious skin - generalized pallor neck - no JVD heart - borderline tachy, s1 s2, no murmur lungs - CTA b/l abd - soft NT ND BS+ ext - no edema, pulses 2+ b/l psych - a/o x 3 Results & Data Results & Data Vital Signs (Past 12 Hours) Vital Signs Temp Pulse Pulse Resp BP Pulse Ox O2 Del Method 01/12/24 15:53 36.8 C 97 H 20 180/104 H 96 Room Air 01/12/24 11:33 36.8 C 104 H 21 172/95 H 96 Room Air 01/12/24 11:18 107 H 01/12/24 08:00 84 01/12/24 07:55 36.7 C 97 H 22 173/96 H 96 Room Air Laboratory Results Laboratory Results - last 48 hr 01/11/24 01/11/24 01/11/24 10:52 13:00 16:07 WBC RBC Hgb 8.6 L Hct 27.4 L MCV MCH MCHC RDW Std Deviation RDW Coeff of Jose Roberto Plt Count MPV Immature Gran % (Auto) Neut % (Auto) Lymph % (Auto) [place] % (Auto) Eos % (Auto) Baso % (Auto) Neut # (Auto) Lymph # (Auto) [place] # (Auto) Eos # (Auto) Baso # (Auto) Immature Gran # (Auto) Absolute Nucleated RBC Nucleated RBC % (auto) PT INR APTT PTT Ratio Sodium Potassium Chloride Carbon Dioxide Anion Gap BUN Creatinine Est Cr Clr Drug Dosing eGFR BUN/Creatinine Ratio Glucose POC Glucose 142 H 132 H Calcium Magnesium Total Bilirubin AST ALT Alkaline Phosphatase Troponin I High Sens Total Protein Albumin Globulin Albumin/Globulin Ratio Folate > 22.30 01/11/24 01/11/24 01/12/24 20:49 22:21 03:30 WBC 10.15 8.80 RBC 3.24 L 3.13 L Hgb 8.4 L 8.1 L Hct 26.8 L 25.9 L MCV 82.7 82.7 MCH 25.9 25.9 MCHC 31.3 L 31.3 L RDW Std Deviation 52.0 H 53.6 H RDW Coeff of Jose Roberto 18.1 H 18.6 H Plt Count 303 297 MPV 9.9 10.3 Immature Gran % (Auto) 0.6 0.7 Neut % (Auto) 73.5 75.0 Lymph % (Auto) 17.1 15.2 [place] % (Auto) 7.3 7.4 Eos % (Auto) 1.0 1.1 Baso % (Auto) 0.5 0.6 Neut # (Auto) 7.46 H 6.60 H Lymph # (Auto) 1.74 1.34 [place] # (Auto) 0.74 H 0.65 H Eos # (Auto) 0.10 0.10 Baso # (Auto) 0.05 0.05 Immature Gran # (Auto) 0.06 0.06 Absolute Nucleated RBC 0.03 0.03 Nucleated RBC % (auto) 0.3 0.3 PT 10.9 INR 1.0 APTT 27 PTT Ratio 1.0 Sodium 138 139 Potassium 3.7 3.7 Chloride 105 106 Carbon Dioxide 27 27 Anion Gap 6 6 BUN 4 L 4 L Creatinine 0.59 L 0.58 L Est Cr Clr Drug Dosing 72.2 73.5 eGFR 94.51 94.90 BUN/Creatinine Ratio 6.8 L 6.9 L Glucose 113 H 110 H POC Glucose 113 H Calcium 8.6 8.6 Magnesium 2.0 Total Bilirubin 0.4 AST 17 ALT 9 Alkaline Phosphatase 68 Troponin I High Sens 4.1 Total Protein 6.1 Albumin 3.8 Globulin 2.3 L Albumin/Globulin Ratio 1.7 01/12/24 01/12/24 01/12/24 07:22 10:47 15:25 WBC RBC Hgb Hct MCV MCH MCHC RDW Std Deviation RDW Coeff of Jose Roberto Plt Count MPV Immature Gran % (Auto) Neut % (Auto) Lymph % (Auto) [place] % (Auto) Eos % (Auto) Baso % (Auto) Neut # (Auto) Lymph # (Auto) [place] # (Auto) Eos # (Auto) Baso # (Auto) Immature Gran # (Auto) Absolute Nucleated RBC Nucleated RBC % (auto) PT INR APTT PTT Ratio Sodium Potassium Chloride Carbon Dioxide Anion Gap BUN Creatinine Est Cr Clr Drug Dosing eGFR BUN/Creatinine Ratio Glucose POC Glucose 118 H 96 105 H Calcium Magnesium Total Bilirubin AST ALT Alkaline Phosphatase Troponin I High Sens Total Protein Albumin Globulin Albumin/Globulin Ratio Folate Stl C. diff Tox B Gene 01/12/24 17:00 Stl C. diff Tox B Gene Negative Cdiff Gene PG Care Time/CCT Total # of Minutes Spent Total Time Spent with Patient: Total time spent is greater than 50% in coordination of care (as documented) at patient's floor/unit and/or counseling patient: Coding Level of Care Code 35483 SUB INP/OBS CARE 2/35MIN Diagnoses Lower GI bleed K92.2 Diverticulosis of intestine K57.90 Iron deficiency anemia D50.9 Acute blood loss anemia D62 Type 2 diabetes mellitus E11.9 Essential hypertension I10 Gastroesophageal reflux disease K21.9
[2024-01-13] MEDS: ACETAMINOPHEN 325 MG TAB PO PRN (03:55)
[2024-01-13 08:55] LABS: Basophils # (auto) 0.06 K/uL (0.00-0.20); Basophils % (auto) 0.7 %; Eosinophils # (auto) 0.11 K/uL (0.00-0.50); Eosinophils % (auto) 1.2 %; Hematocrit (blood only) 29.4 % (37.0-47.0); Hemoglobin 9.1 g/dl (12.0-16.0); Immature Granulocytes # (auto) 0.06 K/uL (0.01-0.20); Immature Granulocytes % (auto) 0.7 %; Lymphocytes # (auto) 1.48 K/uL (1.20-3.40); Lymphocytes % (auto) 16.8 %; Mean Corpuscular Hemoglobin 26.6 pg (25.0-34.0); Mean Platelet Volume 10.1 fL (9.4-12.4); Monocytes # (auto) 0.63 K/uL (0.11-0.59); Monocytes % (auto) 7.1 %; Neutrophils # (auto) 6.49 K/uL (1.40-6.50); Neutrophils % (auto) 73.5 %; Nucleated RBC # (auto) 0.02 K/uL (0.00-0.12); Nucleated RBC % (auto) 0.2 %; Platelet Count 353 K/uL (130-400); RDW Coefficient of Variation 19.1 % (11.5-14.5); RDW Standard Deviation 55.3 fL (36.4-46.3); Red Blood Count 3.42 M/uL (4.20-5.40); White Blood Count 8.83 K/ul (4.8-10.8)
[2024-01-13 09:16] LABS: BUN Creatinine Ratio 6.5 (10-20); Calcium 8.9 mg/dl (8.6-10.3); Creatinine Clr Calc Pharmacy 68.7 ml/min; Magnesium 1.9 mg/dl (1.7-2.4); Potassium 3.8 mmol/L (3.5-5.1)
[2024-01-13 10:35] VITALS: TEMP 98.1
[2024-01-13 11:02] VITALS: RESP 16
[2024-01-13 11:04] VITALS: O2SAT 97
[2024-01-13] MEDS: SODIUM CHLORIDE 0.9% 1,000 ML IV ONE (12:24)
--- NOTE | 2024-01-13 14:31 | Electrocardiogram Report ---
Test Reason : Blood Pressure : */* mmHG Vent. Rate : 89 BPM Atrial Rate : 89 BPM P-R Int : 152 ms QRS Dur : 90 ms QT Int : 366 ms P-R-T Axes : 46 62 67 degrees QTcB Int : 445 ms Normal sinus rhythm Cannot rule out Anterior infarct (cited on or before 05-Dec-2021) Abnormal ECG When compared with ECG of 08-Jan-2024 21:37, Borderline criteria for Inferior infarct are no longer Present Confirmed by Keyur Driver ([id number]) on 01/13/2024 2:30:56 PM Referred By: REFERRED SELF Confirmed By: Keyur Driver
--- NOTE | 2024-01-13 17:43 | Discharge Summary ---
Discharge Summary Date of Service January 13, 2024 Principal Dx & Hospital Course #1 = Principal Diagnosis (1) Lower GI bleed: likely due to extensive diverticular disease as seen on prior colonoscopy (10/28/23) GI advises ongoing conservative Rx no plans for endoscopic eval tolerated clears with stable H/H and resolution of bleeding diet advanced to vegetarian diet today cont serial H/H's appreciate GI assistance (2) Diverticulosis of intestine: extensive, nearly entire colon had diverticulosis on last colonoscopy 10/2023 likely cause of #1 above in a few weeks strongly consider a dedicated fiber supplement frequent stools today - likely catharsis from recent bleeding and/or due to IV abx c diff negative no discernible diverticulitis on CT but GI advising 5 days worth of abx today is day # 3 (3) Iron deficiency anemia: ferritin 3.4 - 12/25 3 recent IV venofer infusions done as outpatient s/p 300mg of IV Venofer this admission transfuse PRBCs if Hb <8 in light of active bleeding previous B12 level wnl folic acid level this admission wnl (4) Acute blood loss anemia: 2nd to presumed diverticular bleeding serial H/H's stable (5) Type 2 diabetes mellitus: a1c 6.4% hold oral agents novolog SSI prn (6) Essential hypertension: cont diltiazem add back losartan 100mg daily today (7) Gastroesophageal reflux disease: cont PPI Plan home tomorrow if stable overnight ? Admission HPI Per Admitting Provider The patient is a 73-year-old female with past medical history including history of GI bleed, iron deficiency anemia, diabetes mellitus type 2, hypertension, diverticulosis, anxiety, asthma, peripheral neuropathy, GERD, and depression. She presents to the emergency department with symptoms as noted above. Discharge Exam gen - lying comfortably in bed, NAD, looks well but anxious skin - generalized pallor neck - no JVD heart - borderline tachy, s1 s2, no murmur lungs - CTA b/l abd - soft NT ND BS+ ext - no edema, pulses 2+ b/l psych - a/o x 3 Discharge Plan Discharge Items Patient Disposition: Home - Self-Care Reason For Visit: BRIGHT RED BLOOD PER RECTUM Discharge Diagnosis: 1. rectal bleeding likely due to diverticulosis 2. abdominal pain - likely from #1 above 3. high blood pressure 4. pre-diabetes/diabetes 5. iron deficiency Activity: As commented below Activity Comment: gradually increase your activities over the next 5-7 days Non-emergency contact: Primary Care Provider Call non-emergency contact if: you have any medication questions, your symptoms worsen and you have a fever Follow-up/Referrals: Hernan Barney, DO [Primary Care Provider] - (within 5-7 days ) Diet: Carb Consistent or DM2 and Vegetarian (Lacto-Ovo) Ambulatory Orders: Cdiff Toxin B Gene (2yr or >) (Routine) Timeframe: 2 Days Location: Determined by Patient Ordered By: Santana Muniz Attending Provider Instructions: Mrs Montesinos, You were hospitalized due to rectal bleeding. This was likely due to diverticulosis ("diverticular disease"). You were seen by [facility] and they, too, felt that your diverticulosis was the cause of the bleeding. Your colonoscopy this past summer showed fairly severe diverticulosis of the majority of your colon. You improved with dietary restriction, fluids, and supportive care. Your bleeding ultimately stopped. You did not require any blood transfusion. Hemoglobin (red cell number) was about 9 at time of discharge. We gave you 1 IV iron infusion while you were here. [facility] advanced your diet and you are tolerating this. A stool test for c diff infection - a bacterial cause of diarrhea - was negative. Recommendations - 1. please discontinue advil (ibuprofen) as this could potentially make bleeding worse. Do not take [id number] aspirin, aleve, naprosyn. TYLENOL IS SAFE to take - it does not contribute to bleeding. 2. take amoxicillin-clavulanate antibiotic - 1 tablet twice daily x 2 days starting the AM of 01/14/24. 3. consider taking a probiotic supplement for about 1 week. 4. if you have diarrhea over the next several days please place a stool specimen in the cup provided and drop it off to the [place] office or the main hospital lab. We will check it for additional infection. 5. in about 1 month if you are feeling well and having no digestive issues consider taking a dedicated fiber supplement (Metamucil, etc). This is good for diverticular disease. Follow-up - see your family doctor in 5-7 days Return to [facility] if - * you have fever over 100 degrees * you have worsening abdominal pains * your rectal bleeding returns * you have vomiting * you are unable to eat or drink * you have severe dizziness or lightheadedness * any other concerns It was our pleasure to care for you! Pending Studies at Discharge: No Stand-Alone Forms: My [facility], Smoking Cessation Medications and DC Order Prescriptions: New amoxicillin-pot clavulanate 875-125 mg tablet 1 tab PO BID 2 Days Qty: 4 0RF Continued (DME) lancets [OneTouch UltraSoft Lancets] Misc See Rx Instructions .ROUTE .MEDSUPPLY Qty: 100 3RF Rx Instructions: Test once daily (DME) lancets [OneTouch Delica Lancets] 33 gauge misc See Rx Instructions .Route Qty: 100 3RF Rx Instructions: Test once daily diltiazem HCl 360 mg capsule,extended release 24hr 360 mg PO QAM Qty: 90 3RF (DME) OneTouch Verio test strips Strip See Rx Instructions .ROUTE .MEDSUPPLY Qty: 100 3RF Rx Instructions: Test once daily Repatha SureClick 140 mg/mL pen injector 140 mg subcut .every two weeks Qty: 2 11RF Rx Instructions: Saturday Januvia 100 mg tablet 100 mg PO HS Qty: 90 3RF omeprazole 20 mg capsule,delayed release(DR/EC) 20 mg PO DAILY Qty: 90 3RF losartan 100 mg tablet 100 mg PO QAM Qty: 90 3RF Rx Instructions: TAKE 1 TABLET BY MOUTH EVERY MORNING citalopram 20 mg tablet 20 mg PO HS calcium carbonate [Calcium 600] 600 mg calcium (1,500 mg) tablet 600 mg PO BID trazodone 50 mg tablet 50 mg PO HS PRN (Reason: sleep) cholecalciferol (vitamin D3) 50 mcg (2,000 unit) capsule 2,000 unit PO BID gabapentin 100 mg capsule 200 mg PO BID 90 Days Qty: 360 3RF melatonin 5 mg tablet 5 mg PO HS Eylea 2 mg/0.05 mL Solution 1 mg INTRAVITREAL DIRECTED Rx Instructions: unable to verify hydrocortisone [Preparation H Hydrocortisone] 1 % cream 1 applic topical DAILY PRN (Reason: rash) Qty: 28.4 0RF Held ferrous sulfate 325 mg (65 mg iron) tablet 325 mg PO Q OTHER DAY Qty: 45 3RF Hold Instructions: hold since you have been receiving IV iron infusions. No need to take at this time. Discharge Orders: Discharge Order (Routine); Ordered 01/13/24 Ordered By: Santana Mitchell/Other Patient Handouts: Managing Type 2 Diabetes, Understanding Rectal Bleeding, ED Diverticulosis Admission Data Admit Date/Time: 01/10/24 23:18 Attending Provider: Santana Dixon Admit Provider: Mg Cheung Primary Care Provider: Hernan Barney Other Providers: Mg Cheung; Karli Watters Jr Hospital Stay Data Consultations 01/10/24 21:04 ED Decision to Admit Stat 01/11/24 02:15 Consult Gastroenterology Routine Diagnostic Imagining Performed 01/10/24 18:02 CTA abdomen pelvis w con [CT angio abdomen pelvis w con] Stat Pending Results Patient Have Any Pending Studies at Discharge: No Discharge Instructions Given to Patient (Per Discharging Provider) Mrs Montesinos, Christiano were hospitalized due to rectal bleeding. This was likely due to diverticulosis ("diverticular disease"). You were seen by [facility] and they, too, felt that your diverticulosis was the cause of the bleeding. Your colonoscopy this past summer showed fairly severe diverticulosis of the majority of your colon. You improved with dietary restriction, fluids, and supportive care. Your bleeding ultimately stopped. You did not require any blood transfusion. Hemoglobin (red cell number) was about 9 at time of discharge. We gave you 1 IV iron infusion while you were here. [facility] advanced your diet and you are tolerating this. A stool test for c diff infection - a bacterial cause of diarrhea - was negative. Recommendations - 1. please discontinue advil (ibuprofen) as this could potentially make bleeding worse. Do not take [id number] aspirin, aleve, naprosyn. TYLENOL IS SAFE to take - it does not contribute to bleeding. 2. take amoxicillin-clavulanate antibiotic - 1 tablet twice daily x 2 days starting the AM of 01/14/24. 3. consider taking a probiotic supplement for about 1 week. 4. if you have diarrhea over the next several days please place a stool specimen in the cup provided and drop it off to the [place] office or the main hospital lab. We will check it for additional infection. 5. in about 1 month if you are feeling well and having no digestive issues consider taking a dedicated fiber supplement (Metamucil, etc). This is good for diverticular disease. Follow-up - see your family doctor in 5-7 days Return to [facility] if - * you have fever over 100 degrees * you have worsening abdominal pains * your rectal bleeding returns * you have vomiting * you are unable to eat or drink * you have severe dizziness or lightheadedness * any other concerns It was our pleasure to care for you! Coding Diagnoses Lower GI bleed K92.2 Diverticulosis of intestine K57.90 Iron deficiency anemia D50.9 Acute blood loss anemia D62 Type 2 diabetes mellitus E11.9 Essential hypertension I10 Gastroesophageal reflux disease K21.9
[2024-01-13 17:55] VITALS: BP 164/92; PULSE 92
== END 2024-01-13 18:47 | disposition home or self-care (01) | DRG 392 ==
LOC: ED 17:27 → 1E 23:18 → SUATTDRO 23:18 → 1E 01-11 01:52 → 2S 01-12 21:18